=== PATIENT | female | born 1935 | race Caucasian/White ===

== ENCOUNTER → 2017-09-09 | Outpatient (CLI) | payer OTHER, BC ==
[~2017-09-09] MED LIST: ASPI-232 PO; CALC200T PO; CZR50 PO; DSWCR TOP; FLUO0.0543 TOP; MULT1CAP16 PO; SIMV10TA2 PO
--- NOTE | 2017-09-09 10:52 | DIAGNOSTIC IMAGING REPORT ---
ULTRASOUND KIDNEYS AND BLADDER CLINICAL HISTORY: Chronic kidney disease. COMPARISON STUDY: Abdominal radiographs dated 12/28/2010. TECHNIQUE: Real-time, grayscale, and color flow sonography of the kidneys and bladder is performed. Images are reviewed in the transverse and longitudinal planes. FINDINGS: Kidneys: The kidneys demonstrate cortical atrophy and increased echotexture consistent with medical renal disease. There is asymmetric atrophy of the right kidney as compared to the left. The right kidney measures 8.7 x 3.5 x 4.0 cm and the left kidney measures 9.9 x 5.0 x 4.3 cm. There is no hydronephrosis. There is prominence of the left renal collecting system and a small left-sided extrarenal pelvis. No shadowing renal calculi are identified. There is no sonographic evidence of contour deforming renal mass lesion. No perinephric fluid is identified. Bladder: The bladder is normal in appearance. Bilateral ureteral jets were seen. IMPRESSION: 1. There is asymmetric cortical atrophy of the right kidney as compared to the left. Findings suggest medical renal disease. 2. No hydronephrosis is seen. 3. The bladder is normal as visualized. Electronically signed by: Jamie Noel M.D. 09/09/2017 10:51 AM Dictated Date/Time: 09/09/2017 10:49 AM
[2017-09-09 12:11] LABS: HEMATOCRIT 38.6 % (37-47); HEMOGLOBIN 12.6 g/dL (12.0-16.0); MEAN CELL VOLUME 97.7 fL (80-100); MEAN CORPUSCULAR HEMOGLOBIN 31.9 pg (25-34); MEAN CORPUSCULAR HGB CONC 32.6 g/dl (32-36); MEAN PLATELET VOLUME 10.8 fL (7.4-10.4); PLATELET COUNT 202 K/uL (130-400); RED CELL DISTRIBUTION WIDTH CV 12.5 % (11.5-14.5); WHITE BLOOD COUNT 6.21 K/uL (4.8-10.8)
[2017-09-09 12:32] LABS: ALBUMIN 3.8 gm/dl (3.4-5.0); ALT/SGPT 26 U/L (12-78); AST/SGOT 22 U/L (15-37); BLOOD UREA NITROGEN 23 mg/dl (7-18); CALCIUM 9.4 mg/dl (8.5-10.1); CARBON DIOXIDE 28 mmol/L (21-32); CREATININE 0.84 mg/dl (0.60-1.20); GLUCOSE 90 mg/dl (70-99); POTASSIUM 4.5 mmol/L (3.5-5.1); SODIUM 132 mmol/L (136-145)
[2017-09-09 12:35] LABS: ALKALINE PHOSPHATASE 80 U/L (45-117); TOTAL PROTEIN 7.4 gm/dl (6.4-8.2)
== END | disposition home or self-care (01) ==
LOC: C.ULTR 10:18
PROVIDERS: ATTEND Internal Medicine Nephrology
DX: I34.1 Nonrheumatic mitral (valve) prolapse (principal); I36.1 Nonrheumatic tricuspid (valve) insufficiency; N18.3 Chronic kidney disease, stage 3 (moderate); R79.89 Other specified abnormal findings of blood chemistry

== ENCOUNTER 2022-02-02 08:02 | Inpatient (IN) ==
--- NOTE | 2022-02-02 08:13 | Emergency Department Note ---
Impression & Plan Syncope, Acute dehydration ED Provider Note NAME: RENE CROFT AGE: 86 SEX: F : 1935 ARRIVES VIA: Ambulance INFORMANT: Patient, ED PROVIDER(S): Blaze Garcia MD Chief Complaint: Syncope HPI: Patient presents via EMS due to concern for syncope. The patient does live at home alone and states that she was getting ready to have her morning cup of coffee when she found her self on the kitchen floor. Patient denies having any acute pain. The patient states that she does suffer from chronic shortness of breath and is told by clinical research tech that she always has shortness of breath. Patient denies any head neck chest back or abdominal pain. No extremity pain. Patient then got her self up and into bed but called EMS because she "did not feel quite right." Patient recently was diagnosed with a DVT and started on Xarelto within the past week. EMS was concerned about hoarding as there were a lot of belongings everywhere with only pads for the home in between the belongings but no real open spaces. Patient denies any nausea vomiting or abdominal pains. Patient states that she has never had this happen before. She does follow with Dr. Post with cardiology. When asked why she follows with Dr. Bergeron she states "for my heart." Patient does take losartan in the morning as well as Lasix for blood pressure and fluid but is unsure as to whether or not she took them as she states that most of her pills were in the sink when she got up after passing out. ROS: See HPI for pertinent positives and negatives. A total of 10 systems were reviewed and otherwise negative. Past medical history: See below Surgical history: See below Social history: See below Physical Exam: GENERAL: NAD, wearing a mask, non-toxic. EYE EXAM: Normal conjunctiva. PERRL, no anisocoria and EOM's grossly intact w/o pain. Head: Normocephalic atraumatic. NECK: Supple, no nuchal rigidity, no adenopathy, non-tender. No signs of meningismus. FROM of the neck with good chin to chest and neck extension. No stridor. No midline C-spine TTP. LUNGS: Clear to auscultation. Normal chest wall mechanics. HEART: NSR, no MRG. ABDOMEN: Abdomen soft, non-tender, normo-active bowel sounds, no masses, no rebound or guarding. BACK: No CVA TTP. No TTP. SKIN: No rashes and no bruising. UPPER EXTREMITIES: Upper extremities are grossly normal. No TTP or obvious deformity good range of motion. LOWER EXTREMITIES: Grossly normal, no edema. No TTP or obvious deformity. NEURO EXAM: A&O x3, cranial nerves II-XII grossly intact, normal speech, moves all 4 extremities. Differential diagnoses: Vasovagal event, dehydration, infection, hypoglycemia, electrolyte abnormalities, cardiac sources, intracerebral event, pulmonary embolism, seizure, toxicologic, neurologic, as well as other pathologies. Course: Patient was seen and evaluated the bedside. Full history physical exam was performed. EKG interpreted by nd Sinus with first-degree AV block, rate of 88, prolonged ID, normal axis, motion artifact noted. No obvious ST elevations. Imaging Studies: See Below Cardiac monitoring: An order was placed for continuous cardiac monitoring. The monitor shows a rate of 82 with sinus rhythm. MDM: Patient presented due to concern for syncope. The patient does not remember the event. No tongue biting or incontinence. Patient denies any head or neck pain but given that the patient is on Xarelto CT of the head was obtained. Patient did have blood work completed along with an EKG troponin and chest x-ray. Patient white count is normal with a normal H&H and platelet count. INR 1.3. The patient does have an elevated BUN to creatinine ratio with a BUN of 28. Patient mild hypercalcemia 10.2. TSH is normal. Troponin is not elevated. EKG without overt signs of arrhythmia. CT head negative. Given the patient's episode of syncope and age with a known history of mitral valve prolapse do believe the patient would benefit from admission and telemetry. I did speak with the on-call hospitalist Dr. Miguel and the patient was admitted to the [facility] service. Past Med/Surg History Medical History Chronic kidney disease STAGE 3 Glaucoma Hyperlipidemia Hypertension Mitral valve prolapse FOLLOWED BY DR. POST Osteoarthritis Pulmonary HTN Surgical History History of colonoscopy History of left cataract surgery 10/13/18: was given 2mg of IV versed History of thyroidectomy, subtotal GOITER REMOVED ? DETAILS Family History Mother Family history of diabetes mellitus Father Heart disease Sister Pulmonary embolism Social History Smoking Status: Never smoker Second Hand Exposure: No; Hx Alcohol Use: Yes Alcohol type: wine Hx Substance Use: No Preferred Language: Venezuelan Communication Ability: Effective Tightener Required: No Beliefs That Will Affect Care: None Current Living Situation: Alone Other Information That Helps Us Care for You: No Feels Safe at Home: Yes Safety Concerns: Feels Safe At This Time Assistive Devices: Cane and Glasses Allergies Allergies Allergy/AdvReac Type Severity Reaction Status Date / Time latex Allergy Intermediate SWELLING Verified 10/27/18 08:03 blisters reddness lisinopril Allergy Mild Cough Verified 10/27/18 08:03 Home Meds Home Medications Medication Instructions Recorded Confirmed atorvastatin 10 mg tablet 10 mg PO HS 10/01/18 02/02/22 denosumab 60 mg/mL subcutaneous 1 dose subcut UD 10/01/18 02/02/22 syringe (Prolia) furosemide 20 mg tablet 20 mg PO DAILY PRN swelling 10/01/18 02/02/22 losartan 100 mg tablet 50 mg PO BID 10/01/18 02/02/22 multivitamin 1 tab PO DAILY 10/01/18 02/02/22 timolol 0.5 % eye drops 1 drp OPB QAM 10/01/18 02/02/22 aspirin 81 mg tablet 81 mg PO DAILY 02/02/22 02/02/22 rivaroxaban 10 mg tablet 10 mg PO DAILY 02/02/22 02/02/22 Results & Data (ED) Vital Signs Vital Signs - 24 hr 02/02/22 08:07 02/02/22 08:07 02/02/22 08:51 Temperature 36.7 C Temperature Source Oral Pulse Rate 88 88 Pulse Rate from SpO2 Sensor 88 Pulse Rhythm Regular Pulse Strength Normal Respiratory Rate 20 19 Respiratory Effort / Characteristics Non-Labored Respiratory Depth Normal Respiratory Pattern Regular Blood Pressure 145/84 H 120/69 Blood Pressure Mean 104 86 Pulse Oximetry 98 98 96 Oxygen Delivery Method Room Air Room Air Room Air Sepsis Recent Fever Within 48 Hours No Sepsis New/Unexplained Change in Mental Status N/A Sepsis Action Taken by Nursing No Action Required 02/02/22 09:01 02/02/22 09:30 02/02/22 10:00 Temperature Temperature Source Pulse Rate 93 H 81 67 Pulse Rate from SpO2 Sensor 73 68 Pulse Rhythm Pulse Strength Respiratory Rate 23 18 14 Respiratory Effort / Characteristics Respiratory Depth Respiratory Pattern Blood Pressure 116/68 141/68 H 133/62 Blood Pressure Mean 84 92 85 Pulse Oximetry 98 97 99 Oxygen Delivery Method Room Air Room Air Room Air Sepsis Recent Fever Within 48 Hours Sepsis New/Unexplained Change in Mental Status Sepsis Action Taken by Nursing 02/02/22 10:30 Temperature Temperature Source Pulse Rate 67 Pulse Rate from SpO2 Sensor 66 Pulse Rhythm Pulse Strength Respiratory Rate 17 Respiratory Effort / Characteristics Respiratory Depth Respiratory Pattern Blood Pressure 138/66 Blood Pressure Mean 90 Pulse Oximetry 96 Oxygen Delivery Method Room Air Sepsis Recent Fever Within 48 Hours Sepsis New/Unexplained Change in Mental Status Sepsis Action Taken by Usp Medications Current Medication List: was personally reviewed by me Laboratory Data Attestation: I reviewed the patient's lab results. Result diagrams: 02/02/22 08:21 02/02/22 08:21 Lab Results 02/02/22 02/02/22 02/02/22 Range/Units 08:21 08:21 08:21 WBC 6.42 (4.8-10.8) K/ul RBC 4.29 (3.93-5.22) M/uL Hgb 13.5 (12.0-16.0) g/dl Hct 42.2 (34.1-44.9) % MCV 98.4 (80.0-100.0) fL MCH 31.5 (25.0-34.0) pg MCHC 32.0 (32.0-36.0) g/dL RDW Std Deviation 46.2 (36.4-46.3) fL RDW Coeff of Justyn 12.8 (11.5-14.5) % Plt Count 215 (130-400) K/uL MPV 9.5 (9.4-12.3) fL Immature Gran % (Auto) 0.8 % Neut % (Auto) 66.2 % Lymph % (Auto) 18.4 % [place]cho % (Auto) 9.8 % Eos % (Auto) 4.2 % Baso % (Auto) 0.6 % Neut # (Auto) 4.25 (1.4-6.5) K/uL Lymph # (Auto) 1.18 L (1.2-3.4) K/uL [place]cho # (Auto) 0.63 (0.24-0.82) K/uL Eos # (Auto) 0.27 (0-0.50) K/uL Baso # (Auto) 0.04 (0-0.2) K/uL Immature Gran # (Auto) 0.05 H (0.00-0.02) K/uL PT 13.6 H (9.0-12.0) Seconds INR 1.3 H (0.9-1.1) APTT 30.2 (21.0-31.0) Seconds PTT Ratio 1.1 Sodium 139 (136-145) mmol/L Potassium 4.2 (3.5-5.1) mmol/L Chloride 105 (98-107) mmol/L Carbon Dioxide 26 (21-32) mmol/L Anion Gap 8 (3-11) BUN 28 H (6-23) mg/dl Creatinine 0.91 (0.6-1.2) mg/dl Est Cr Clr Drug Dosing 34.4 ml/min Est GFR ( Amer) 65.7 ml/min Est GFR (Non-Af Amer) 56.7 ml/min BUN/Creatinine Ratio 30.8 H (10-20) Glucose 116 H (70-99(Fasting)) mg/dl Calcium 10.2 H (8.5-10.1) mg/dl Magnesium 1.8 (1.7-2.4) mg/dl Total Bilirubin 0.8 (0.2-1.0) mg/dl AST 23 (13-39) U/L ALT 22 (7-52) U/L Alkaline Phosphatase 72 (34-104) U/L Troponin I High Sens 10.3 (0-14) pg/ml Total Protein 7.1 (6.0-8.3) gm/dl Albumin 4.1 (3.4-5.0) gm/dl Globulin 3.0 (2.5-4.0) gm/dl Albumin/Globulin Ratio 1.4 (0.9-2) TSH (0.300-4.500) uIu/ml SARS-CoV-2, RNA, NAAT (NEGATIVE) 02/02/22 02/02/22 Range/Units 08:21 08:51 WBC (4.8-10.8) K/ul RBC (3.93-5.22) M/uL Hgb (12.0-16.0) g/dl Hct (34.1-44.9) % MCV (80.0-100.0) fL MCH (25.0-34.0) pg MCHC (32.0-36.0) g/dL RDW Std Deviation (36.4-46.3) fL RDW Coeff of Justyn (11.5-14.5) % Plt Count (130-400) K/uL MPV (9.4-12.3) fL Immature Gran % (Auto) % Neut % (Auto) % Lymph % (Auto) % [place] % (Auto) % Eos % (Auto) % Baso % (Auto) % Neut # (Auto) (1.4-6.5) K/uL Lymph # (Auto) (1.2-3.4) K/uL [place]cho # (Auto) (0.24-0.82) K/uL Eos # (Auto) (0-0.50) K/uL Baso # (Auto) (0-0.2) K/uL Immature Gran # (Auto) (0.00-0.02) K/uL PT (9.0-12.0) Seconds INR (0.9-1.1) APTT (21.0-31.0) Seconds PTT Ratio Sodium (136-145) mmol/L Potassium (3.5-5.1) mmol/L Chloride (98-107) mmol/L Carbon Dioxide (21-32) mmol/L Anion Gap (3-11) BUN (6-23) mg/dl Creatinine (0.6-1.2) mg/dl Est Cr Clr Drug Dosing ml/min Est GFR ( Amer) ml/min Est GFR (Non-Af Amer) ml/min BUN/Creatinine Ratio (10-20) Glucose (70-99(Fasting)) mg/dl Calcium (8.5-10.1) mg/dl Magnesium (1.7-2.4) mg/dl Total Bilirubin (0.2-1.0) mg/dl AST (13-39) U/L ALT (7-52) U/L Alkaline Phosphatase (34-104) U/L Troponin I High Sens (0-14) pg/ml Total Protein (6.0-8.3) gm/dl Albumin (3.4-5.0) gm/dl Globulin (2.5-4.0) gm/dl Albumin/Globulin Ratio (0.9-2) TSH 1.866 (0.300-4.500) uIu/ml SARS-CoV-2, RNA, NAAT NEGATIVE (NEGATIVE) Administered Medications Sodium Chloride (Nss 1000ml) 1,000 mls @ 125 mls/hr IV .Q8H LEAH Stop: 02/02/22 20:52 Last Admin: 02/02/22 13:52 Dose: 125 mls/hr Documented By: CC Rivaroxaban (Rivaroxaban 10 Mg Tablet) 10 mg PO DAILY LEAH Stop: 03/04/22 12:52 Last Admin: 02/02/22 13:51 Dose: 10 mg Documented By: CC Timolol Maleate (Timolol Maleate 0.5% Op Soln 5 Ml Btl) 1 drops OP QAM LEAH Stop: 03/04/22 13:59 Last Admin: 02/02/22 13:52 Dose: 1 drops Documented By: CC Discontinued Medications Sodium Chloride (Nss) 500 mls @ 999 mls/hr IV .Q31M LEAH Stop: 02/02/22 09:00 Last Infusion: 02/02/22 09:57 Dose: 0 mls/hr Documented By: Admin: 02/02/22 08:55 Dose: 999 mls/hr Documented By: IN Imaging Data Radiologist's Impression: Head CT 02/02/22 08:22 CT SCAN OF THE BRAIN WITHOUT IV CONTRAST CLINICAL HISTORY: Syncope. COMPARISON STUDY: No priors. TECHNIQUE: Unenhanced axial CT scan of the brain is performed from the vertex to the skull base. A dose lowering technique was utilized adhering to the principles of ALARA. CT DOSE: 537.48 mGy.cm FINDINGS: Brain parenchyma: There is age-related involutional change noting advanced confluent subcortical and periventricular microangiopathic disease. There is no hemorrhage, mass effect, or evidence of acute territorial ischemia by CT criteria. Latif-white matter differentiation is preserved. No extra-axial fluid collection is seen. Ventricles, sulci, cisterns: Prominent secondary to involutional change. Intracranial vasculature: There is atherosclerotic calcification of the cavernous carotid and vertebral arteries. Calvarium: The skeletal structures are osteopenic. No depressed calvarial fracture is identified. Sinuses and mastoids: The visualized paranasal sinuses are clear. There is thickening and sclerosis of the wall of the left maxillary antrum. The mastoid air cells are well pneumatized. Orbits: The bony orbits are grossly intact. There are bilateral ocular lens implants. IMPRESSION: There is no hemorrhage, mass effect, or evidence of acute territorial ischemia by CT criteria. ACT 112: Negative or not required by law. Electronically signed by: Jamie Noel M.D. 02/02/2022 9:15 AM Chest X-Ray 02/02/22 10:24 SINGLE VIEW CHEST CLINICAL HISTORY: Syncope. FINDINGS: An AP, portable, upright chest radiograph is compared to study dated 12/28/2010. The examination is degraded by portable technique and apical lordotic positioning. The heart is mildly enlarged noting atherosclerotic calcification of the thoracic aorta. The pulmonary vasculature is noncongested. Chronic interstitial thickening is similar to previous. There is bibasilar scarring/atelectasis. The lungs and pleural spaces are otherwise clear. No pneumothorax is seen. The skeletal structures are osteopenic. The bony thorax is grossly intact. IMPRESSION: Mild cardiomegaly with no acute cardiopulmonary abnormality identified. ACT 112: Negative or not required by law. Electronically signed by: Jamie Noel M.D. 02/02/2022 10:56 AM Discharge Plan Visit Data Chief Complaint: Syncope Stated Complaint: syncope ED Provider: Blaze Garcia Discharge Problem: Syncope, Acute dehydration Patient Disposition: Admitted As Inpatient Discharge Instructions Interventions: ED Discharge Assessment Last Done: 02/02/22 12:22
[2022-02-02] MEDS ORDERED: SODIUM CHLORIDE 0.9% 500 ML IV SCH (08:30)
[2022-02-02 08:32] LABS: Basophils # (auto) 0.04 K/uL (0-0.2); Basophils % (auto) 0.6 %; Eosinophils # (auto) 0.27 K/uL (0-0.50); Eosinophils % (auto) 4.2 %; Hematocrit (blood only) 42.2 % (34.1-44.9); Hemoglobin 13.5 g/dl (12.0-16.0); Immature Granulocytes # (auto) 0.05 K/uL (0.00-0.02); Immature Granulocytes % (auto) 0.8 %; Lymphocytes # (auto) 1.18 K/uL (1.2-3.4); Lymphocytes % (auto) 18.4 %; Mean Corpuscular Hemoglobin 31.5 pg (25.0-34.0); Mean Corpuscular Volume 98.4 fL (80.0-100.0); Mean Platelet Volume 9.5 fL (9.4-12.3); Monocytes # (auto) 0.63 K/uL (0.24-0.82); Monocytes % (auto) 9.8 %; Neutrophils # (auto) 4.25 K/uL (1.4-6.5); Neutrophils % (auto) 66.2 %; Platelet Count 215 K/uL (130-400); RDW Coefficient of Variation 12.8 % (11.5-14.5); RDW Standard Deviation 46.2 fL (36.4-46.3); Red Blood Count 4.29 M/uL (3.93-5.22); White Blood Count 6.42 K/ul (4.8-10.8)
[2022-02-02 08:48] LABS: INR 1.3 (0.9-1.1); Partial Thromboplastin Ratio 1.1; Partial Thromboplastin Time 30.2 Seconds (21.0-31.0); Prothrombin Time 13.6 Seconds (9.0-12.0)
[2022-02-02 09:01] LABS: Troponin I High Sensitivity 10.3 pg/ml (0-14)
--- NOTE | 2022-02-02 09:17 | CT Scan Report ---
CT SCAN OF THE BRAIN WITHOUT IV CONTRAST CLINICAL HISTORY: Syncope. COMPARISON STUDY: No priors. TECHNIQUE: Unenhanced axial CT scan of the brain is performed from the vertex to the skull base. A do se lowering technique was utilized adhering to the principles of ALARA. CT DOSE: 537.48 mGy.cm FINDINGS: Brain parenchyma: There is age-related involutional change noting advanced confluent subcortical and periventricular microangiopathic disease. There is no hemorrhage, mass effect, or evidence of acute t erritorial ischemia by CT criteria. Latif-white matter differentiation is preserved. No extra-axial fl uid collection is seen. Ventricles, sulci, cisterns: Prominent secondary to involutional change. Intracranial vasculature: There is atherosclerotic calcification of the cavernous carotid and vertebr al arteries. Calvarium: The skeletal structures are osteopenic. No depressed calvarial fracture is identified. Sinuses and mastoids: The visualized paranasal sinuses are clear. There is thickening and sclerosis o f the wall of the left maxillary antrum. The mastoid air cells are well pneumatized. Orbits: The bony orbits are grossly intact. There are bilateral ocular lens implants. IMPRESSION: There is no hemorrhage, mass effect, or evidence of acute territorial ischemia by CT romi dunbar. ACT 112: Negative or not required by law. Electronically signed by: Jamie Noel M.D. 02/02/2022 9:15 AM
[2022-02-02 09:24] LABS: Albumin Globulin Ratio 1.4 (0.9-2); Albumin Level 4.1 gm/dl (3.4-5.0); BUN Creatinine Ratio 30.8 (10-20); Bilirubin,Total 0.8 mg/dl (0.2-1.0); Calcium 10.2 mg/dl (8.5-10.1); Creatinine Clr Calc Pharmacy 34.4 ml/min; Est GFR (African American) 65.7 ml/min; Est GFR (Non-African American) 56.7 ml/min; Magnesium 1.8 mg/dl (1.7-2.4); Potassium 4.2 mmol/L (3.5-5.1); Total Protein 7.1 gm/dl (6.0-8.3)
--- NOTE | 2022-02-02 10:46 | History & Physical Report ---
Date of Service February 02, 2022 Assessment & Plan (1) Syncope and collapse: Plan: Multiple possible causes including but not limited to dehydration (elevated BUN/cr ratio), orthostatic hypotension (orthostatics pending, pt also wearing new compression stockings this week that are not fitted to her), medication side effect, stroke (less likely with normal CT and no focal deficits on exam), ACS (less likely given no chest pain, nonischemic and normal HS trop), cardiac conduction abnormality, worsening valvulopathy, infection (less likely without known symptoms but UA still pending, CXR clear), seizure (no loss bladder control or evidence of tongue biting). Workup so far is negative. She did receive a small bolus of NSS. Will cont to monitor on telemetry to ensure no conduction abnormality present and consult cardiology. Will obtain updated echo and EEG. Repeat EKG in am. Orthostatics qshift and PT/OT evaluation ordered. (2) Acute superficial venous thrombosis of right lower extremity: Plan: Found this week as outpatient. Cont Xarelto 10mg daily for 45 days. Although PE considered, pt has a very low risk including no tachycardia, chest pain, pleurisy, or shortness of breath. Also her clot is superficial making it low risk for causing PE. Cont current treatment and consider CTA chest only if she develops symptoms. (3) Pulmonary HTN: Plan: Chronic dyspnea, normal spirometry in 2019. CXR clear. No changes in symptoms. Cont outpatient monitoring. (4) Glaucoma: Plan: chronic, stable. Cont eye drops per home regimen. (5) Chronic kidney disease: Plan: Chronic, stable. Cont to monitor. Avoid nephrotoxic substances. Renally dose medications as needed. (6) Hyperlipidemia: Plan: chronic, stable. Cont Atorvastatin per outpatient regimen. (7) Hypertension: Plan: chronic, stable and at goal. Cont Losartan per home reigmen. (8) DVT prophylaxis: Plan: Xarelto Full code as confirmed with the patient on admission. Her brother is medical POA if needed. Dispo- med tele and home in am pending recommendations and workup overnight. [facility] History of Present Illness Chief Complaint: syncope Primary Care Provider: RENZO PCP 86 yo F presented via EMS after syncopal event in her kitchen this morning. She awoke and walked to the kitchen to get her morning coffee. She said she couldn't remember if she poured it or not but the next thing she remembered was finding herself on her kitchen floor. There were no prodromal symptoms. She felt somewhat lightheaded but was clear. She reported going to her bed and lying down and ultimately calling EMS out of concern that something bad happened. She doesn't report pain anywhere, denies pain in her chest and no shortness of breath. Denies any recent respiratory symptoms. Reports feeling fine, in fact, yesterday was out in her garden most of the day. Denies dysuria, urinary urgency, abdominal pain. Denies headache. Recent medication changes include low dose Xarelto for treatment of a superficial blood clot in her right leg after she reported some swelling. Uses LAsix as needed for swelling, which is typically daily, but didn't take them today. She has no stroke symptoms today. No known heart or lung disease (normal spirometry in November 2018). She has MVP and is seen at [facility] for this, last echo was in 2019. She has bilateral carotid disease that is known and asymptomatic. She has a h/o reported pulmonary hypertension. She is not on oxygen but is chronically short of breath. No changes in this recently. EKG reveals no evidence of ischemia and highly sensitive troponin is negative, CXR is clear, urinalysis is pending, CBC and BMP are unremarkable aside for an elevated BUN:creat ratio and CKD Stage III which is chronic. ROS reveals that she has been eating and drinking well and denies any bleeding or bruising. Allergies Allergy/AdvReac Type Severity Reaction Status Date / Time latex Allergy Intermediate SWELLING Verified 10/27/18 08:03 blisters reddness lisinopril Allergy Mild Cough Verified 10/27/18 08:03 Home Medications Medication Instructions Recorded Confirmed Type atorvastatin 10 mg tablet 10 mg PO HS 10/01/18 02/02/22 History denosumab 60 mg/mL subcutaneous 1 dose subcut UD 10/01/18 02/02/22 History syringe (Prolia) furosemide 20 mg tablet 20 mg PO DAILY PRN swelling 10/01/18 02/02/22 History losartan 100 mg tablet 50 mg PO BID 10/01/18 02/02/22 History multivitamin 1 tab PO DAILY 10/01/18 02/02/22 History timolol 0.5 % eye drops 1 drp OPB QAM 10/01/18 02/02/22 History aspirin 81 mg tablet 81 mg PO DAILY 02/02/22 02/02/22 History rivaroxaban 10 mg tablet 10 mg PO DAILY 02/02/22 02/02/22 History Past Med/Surg History Medical History Chronic kidney disease STAGE 3 Glaucoma Hyperlipidemia Hypertension Mitral valve prolapse FOLLOWED BY DR. POST Osteoarthritis Pulmonary HTN Surgical History History of colonoscopy History of left cataract surgery 10/13/18: was given 2mg of IV versed History of thyroidectomy, subtotal GOITER REMOVED ? DETAILS Family History Mother Family history of diabetes mellitus Father Heart disease Sister Pulmonary embolism Social History Smoking Status: Never smoker Second Hand Exposure: No; Hx Alcohol Use: Yes Alcohol type: wine Hx Substance Use: No Preferred Language: Citizen Of [place] Communication Ability: Effective Tool Design Engineer Required: No Beliefs That Will Affect Care: None Current Living Situation: Alone Feels Safe at Home: Yes Assistive Devices: Glasses Review of Systems Review of Systems: All systems were reviewed and negative except as indicated above. Physical Exam Physical Exam: CONSTITUTIONAL: WNWD, vitals as above, generally well- appearing, NAD EYES: EOMI bilaterally, PERRL, normal conjunctivae, no scleral icterus ENT: external ear and nose normal, oropharynx clear, MMM NECK: trachea midline RESPIRATORY: clear to auscultation bilaterally, no crackles, rales or wheezes, normal respiratory effort CARDIOVASCULAR: regular rate and rhythm, S1 and 2 heard without murmurs, ga llops or rubs, no JVD, no peripheral edema, no carotid bruits CHEST: inspection of chest was normal GASTROINTESTINAL: soft, nontender, ND, no guarding MUSCULOSKELETAL: strength 5/5 throughout, head is normocephalic and atraumatic, she is wearing OTC bilateral foot/ankle compression stockings which are cutting off circulation to her toes which are white. These were removed. Feet are cool to touch and sensation intact. SKIN: warm and dry NEUROLOGIC: No facial palsy, no dysarthria. CN 2-12 grossly intact, no sensory deficit, normal cognition, normal speech, no tremor PSYCHIATRIC: alert cooperative and oriented to person, place and time. Results & Data Results & Data ([facility]) Vital Signs (Past 12 Hours) Vital Signs Temp Pulse Resp BP Pulse Ox O2 Del Method 02/02/22 09:30 81 18 141/68 H 97 Room Air 02/02/22 09:01 93 H 23 116/68 98 Room Air 02/02/22 08:51 88 19 120/69 96 Room Air 02/02/22 08:07 98 Room Air 02/02/22 08:07 36.7 C 88 20 145/84 H 98 Room Air Laboratory Results Short CBC 02/02/22 Range/Units 08:21 WBC 6.42 (4.8-10.8) K/ul Hgb 13.5 (12.0-16.0) g/dl Hct 42.2 (34.1-44.9) % Plt Count 215 (130-400) K/uL BMP 02/02/22 08:21 Sodium 139 Potassium 4.2 Chloride 105 Carbon Dioxide 26 BUN 28 H Creatinine 0.91 Glucose 116 H Calcium 10.2 H Liver Function 02/02/22 Range/Units 08:21 Total Bilirubin 0.8 (0.2-1.0) mg/dl AST 23 (13-39) U/L ALT 22 (7-52) U/L Alkaline Phosphatase 72 (34-104) U/L Albumin 4.1 (3.4-5.0) gm/dl Diagnostic Findings Head CT 02/02/22 08:22 CT SCAN OF THE BRAIN WITHOUT IV CONTRAST CLINICAL HISTORY: Syncope. COMPARISON STUDY: No priors. TECHNIQUE: Unenhanced axial CT scan of the brain is performed from the vertex to the skull base. A dose lowering technique was utilized adhering to the principles of ALARA. CT DOSE: 537.48 mGy.cm FINDINGS: Brain parenchyma: There is age-related involutional change noting advanced confluent subcortical and periventricular microangiopathic disease. There is no hemorrhage, mass effect, or evidence of acute territorial ischemia by CT criteria. Latif-white matter differentiation is preserved. No extra-axial fluid collection is seen. Ventricles, sulci, cisterns: Prominent secondary to involutional change. Intracranial vasculature: There is atherosclerotic calcification of the cavernous carotid and vertebral arteries. Calvarium: The skeletal structures are osteopenic. No depressed calvarial fracture is identified. Sinuses and mastoids: The visualized paranasal sinuses are clear. There is thickening and sclerosis of the wall of the left maxillary antrum. The mastoid air cells are well pneumatized. Orbits: The bony orbits are grossly intact. There are bilateral ocular lens implants. IMPRESSION: There is no hemorrhage, mass effect, or evidence of acute territorial ischemia by CT criteria. ACT 112: Negative or not required by law. Electronically signed by: Jamie Noel M.D. 02/02/2022 9:15 AM Code Status & VTE Plan VTE Prophylaxis Plan VTE Prophylaxis will be ordered: Yes (1) Chronic kidney disease Chronic kidney disease stage: stage 3 (moderate)
--- NOTE | 2022-02-02 10:57 | XRay Report ---
SINGLE VIEW CHEST CLINICAL HISTORY: Syncope. FINDINGS: An AP, portable, upright chest radiograph is compared to study dated 12/28/2010. The examina tion is degraded by portable technique and apical lordotic positioning. The heart is mildly enlarged noting atherosclerotic calcification of the thoracic aorta. The pulmonary vasculature is noncongested . Chronic interstitial thickening is similar to previous. There is bibasilar scarring/atelectasis. Th e lungs and pleural spaces are otherwise clear. No pneumothorax is seen. The skeletal structures are osteopenic. The bony thorax is grossly intact. IMPRESSION: Mild cardiomegaly with no acute cardiopulmonary abnormality identified. ACT 112: Negative or not required by law. Electronically signed by: Jamie Noel M.D. 02/02/2022 10:56 AM
[2022-02-02 12:00] LABS: Appearance Urine Clear (Clear); Bilirubin Urine Negative (Negative); Blood Urine Negative (Negative); Color Urine Yellow; Glucose Urine UA Negative (Negative); Ketones Urine Negative (Negative); Leukocyte Esterase Urine Negative (Negative); Nitrite Urine Negative (Negative); Protein Urine Negative (Negative); Specific Gravity Urine 1.008 (1.000-1.030); Urobilinogen Urine Negative (Negative)
[2022-02-02] MEDS ORDERED: ACETAMINOPHEN 325 MG TAB PO PRN (12:53)
[2022-02-02] MEDS ORDERED: SODIUM CHLORIDE 0.9% 1000ML 1,000 ML IV SCH (12:53)
[2022-02-02] MEDS: RIVAROXABAN 10 MG TABLET PO SCH (13:51)
[2022-02-02] MEDS: TIMOLOL MALEATE 0.5% OP SOLN 5 ML BTL OP SCH (13:52)
--- NOTE | 2022-02-02 16:03 | Electrocardiogram Report ---
Test Reason : Blood Pressure : / mmHG Vent. Rate : 088 BPM Atrial Rate : 088 BPM P-R Int : 210 ms QRS Dur : 080 ms QT Int : 334 ms P-R-T Axes : 062 016 207 degrees QTc Int : 404 ms Poor data quality, interpretation may be adversely affected Sinus rhythm with 1st degree A-V block Septal infarct , age undetermined Abnormal ECG When compared with ECG of 28-DEC-2010 10:55, 1st degree AV block is now present Septal infarct is now Present Confirmed by Theodore Coelho ([id number]) on 02/02/2022 4:03:21 PM Referred By: REFERRED SELF Confirmed By:Theodore Coelho
[2022-02-02] MEDS: LOSARTAN POTASSIUM 50 MG TAB PO SCH (21:42)
[2022-02-02] MEDS: ATORVASTATIN 10 MG TAB PO SCH (21:42)
[2022-02-03 07:09] LABS: Hemoglobin 11.6 g/dl (12.0-16.0); Mean Corpuscular Hemoglobin 31.6 pg (25.0-34.0); Mean Corpuscular Hgb Conc 32.2 g/dL (32.0-36.0); Mean Corpuscular Volume 98.1 fL (80.0-100.0); Mean Platelet Volume 9.7 fL (9.4-12.3); Platelet Count 198 K/uL (130-400); RDW Coefficient of Variation 12.8 % (11.5-14.5); RDW Standard Deviation 46.5 fL (36.4-46.3); Red Blood Count 3.67 M/uL (3.93-5.22); White Blood Count 5.29 K/ul (4.8-10.8)
[2022-02-03 07:34] LABS: BUN Creatinine Ratio 23.5 (10-20); Calcium 8.9 mg/dl (8.5-10.1); Creatinine Clr Calc Pharmacy 36.9 ml/min; Est GFR (African American) 71.4 ml/min; Est GFR (Non-African American) 61.6 ml/min; Potassium 4.3 mmol/L (3.5-5.1)
[2022-02-03] MEDS: LOSARTAN POTASSIUM 50 MG TAB PO SCH (08:37)
[2022-02-03] MEDS: RIVAROXABAN 10 MG TABLET PO SCH (08:38)
[2022-02-03] MEDS: MULTIVITAMIN TAB PO SCH (08:38)
[2022-02-03] MEDS: TIMOLOL MALEATE 0.5% OP SOLN 5 ML BTL OP SCH (08:41)
--- NOTE | 2022-02-03 11:37 | Cardiology Consultation ---
Date of Consultation February 03, 2022 Assessment & Plan (1) Syncope: (2) Acute dehydration: (3) Pulmonary HTN: (4) Chronic kidney disease: (5) Hyperlipidemia: (6) Mitral valve prolapse: (7) Mitral regurgitation: (8) Carotid stenosis, bilateral: Plan Ischemic work-up is unremarkable. 2D echocardiogram shows normal LV wall motion without wall motion abnormalities. I do believe the cause of her symptoms were anxiety for which she has had similar previous episodes in the past. No further cardiac testing or intervention necessary at this time. Okay to discharge to home from a cardiac standpoint and follow-up with cardiology in the next 1 to 2 months. No medication changes will be made at this time. History of Present Illness Reason for Consultation: Chest pain Requesting Physician: [facility] Attending Physician: Lenard Carreno MD History of Present Illness Mrs. Victor is a very pleasant yet anxious 86-year-old woman who presented [facility] with complaints of chest discomfort. Her daughter is at the bedside during the examination and supplements her history. The patient notes that she has been very anxious lately with the anniversary of her 's . On the day of presentation she was sitting down eating when she suddenly developed abdominal discomfort which seem to radiate up through her chest shoulders and arms. She checked her blood pressure is 130 systolic. She then became worried that she was suffering aortic dissection which was the cause of her 's and her symptoms worsened. She did not take her as needed antianxiety medication which her daughter states believes would have helped with her symptoms. Upon arrival she was anxious and hypertensive. Since admission she states that she has been feeling much better. She is very active at baseline and goes polka dancing on a regular basis and exercises on a regular basis as well. PMHX: 1. 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 Non-rheumatic tricuspid valve insufficiency 3. Pulmonary hypertension (HCC) 4. HTN, goal below 140/90 5. Asymptomatic bilateral carotid artery stenosis 6. Dyslipidemia, goal LDL below 70 Allergies Allergy/AdvReac Type Severity Reaction Status Date / Time latex Allergy Intermediate SWELLING Verified 10/27/18 08:03 blisters reddness lisinopril Allergy Mild Cough Verified 10/27/18 08:03 Home Medications Medication Instructions Recorded Confirmed Type atorvastatin 10 mg tablet 10 mg PO HS 10/01/18 02/02/22 History denosumab 60 mg/mL subcutaneous 1 dose subcut UD 10/01/18 02/02/22 History syringe (Prolia) furosemide 20 mg tablet 20 mg PO DAILY PRN swelling 10/01/18 02/02/22 History losartan 100 mg tablet 50 mg PO BID 10/01/18 02/02/22 History multivitamin 1 tab PO DAILY 10/01/18 02/02/22 History timolol 0.5 % eye drops 1 drp OPB QAM 10/01/18 02/02/22 History aspirin 81 mg tablet 81 mg PO DAILY 02/02/22 02/02/22 History rivaroxaban 10 mg tablet 10 mg PO DAILY 02/02/22 02/02/22 History Patient History Medical History (Updated 02/03/22 @ 11:37 by Micheal Larios DO) Chronic kidney disease STAGE 3 Glaucoma Hyperlipidemia Hypertension Mitral valve prolapse FOLLOWED BY DR. POST Osteoarthritis Pulmonary HTN Surgical History History of colonoscopy History of left cataract surgery 10/13/18: was given 2mg of IV versed History of thyroidectomy, subtotal GOITER REMOVED ? DETAILS Family History Mother Family history of diabetes mellitus Father Heart disease Sister Pulmonary embolism Social History Smoking Status: Never smoker Second Hand Exposure: No; Hx Alcohol Use: Yes Alcohol type: wine Hx Substance Use: No Preferred Language: Colombian Communication Ability: Effective Consumer Affairs Director Required: No Beliefs That Will Affect Care: None Current Living Situation: Alone Other Information That Helps Us Care for You: No Feels Safe at Home: Yes Safety Concerns: Feels Safe At This Time Assistive Devices: Cane and Glasses Review of Systems Review of Systems: All systems reviewed & are unremarkable except as noted in HPI & below Physical Exam Physical Exam: General: Awake, alert and oriented x 3. No acute distress. HEENT: Normocephalic, atraumatic. Pupils equal, round and reactive to light and accommodation. Extraocular muscles are intact. Anicteric sclera. Moist mucous membranes. Neck: No JVD. No bruit. Cardiovascular: Regular. Positive S-4. Normal S-1 and S-2. No S-3. 3/6 holosystolic ejection murmur, left sternal border, mid-clavicular line with radiation to the axilla. No rubs. Pulmonary: Clear to auscultation bilaterally. No rales, rhonchi, or wheezing. Abdomen: Bowel sounds x 4, soft. No rebound, guarding or tenderness. No organomegaly. Extremities: No clubbing, cyanosis or edema. +2 pedal pulses bilaterally. Skin: Warm and dry. Results & Data ([facility]) Vital Signs (Past 12 Hours) Vital Signs Temp Pulse Resp BP Pulse Ox O2 Del Method 02/03/22 11:25 36.6 C 18 94 Room Air 02/03/22 08:05 36.5 C 64 18 105/63 96 Room Air Diagnostic Findings Summary of transthoracic echocardiogram performed 04/04/2020: There was normal sinus rhythm during the examination. The left ventricular wall motion is normal. The qualitative LV ejection fraction is 60-64% (normal). The left atrium is moderately enlarged. The right atrium is moderately enlarged. The mitral valve leaflets are thickened and redundant consistent with degenerative (myxomatous) mitral valve disease. Moderate bileaflet mitral valve prolapse is present. Mitral stenosis is absent. Moderate to severe mid to late systolic mitral regurgitation is present. The mitral regurgitation jet is eccentric and posteriorly directed hugging the posterior left atrial wall. Moderate to severe tricuspid regurgitation is present. There is no evidence of pulmonary hypertension. The estimated pulmonary artery systolic pressure is 33 mm Hg. Compared to the prior study dated 03/17/19, there has been no significant change. Summary of carotid duplex performed 12/27/20: Right carotid artery duplex examination indicates evidence of 50-69% stenosisof the internal carotid artery. Left carotid artery duplex examination indicates evidence of 50-69% stenosisof the internal carotid artery. (1) Chronic kidney disease Chronic kidney disease stage: stage 3 (moderate)
--- NOTE | 2022-02-03 15:13 | Hospitalist Progress Note ---
Date of Service February 03, 2022 Assessment & Plan (1) Syncope and collapse: Plan: Syncope Likely due to Orthostatic Hypotension Was recently started on Lasix as needed for ankle edema --CT Head:There is no hemorrhage, mass effect, or evidence of acute territorial ischemia by CT criteria. --ECHO: No change when compared to prior study. EF 60 to 65%. Grade 1 diastolic dysfunction. No segmental left ventricular wall motion abnormality. Mitral leaflets appear thickened, moderate and overall redundant consistent with myxomatous degeneration. Moderate mitral valve prolapse, moderate mitral regurgitation and moderate tricuspid regurgitation, moderate biatrial enlargement. --Troponin not elevated --EEG:pending --Positive Orthostatics --Hold Losartan today. Consider decreasing dose upon discharge --Compression stocking --Monitor for arrhythmias Appreciate cardiology input Fall precautions (2) Acute superficial venous thrombosis of right lower extremity: Plan: Continue Xarelto (3) Pulmonary HTN: Plan: Chronic dyspnea, normal spirometry in 2019. (4) Glaucoma: Plan: chronic, stable. Continue eye drops (5) Chronic kidney disease: Plan: CKD III Avoid nephrotoxic agents as able (6) Hyperlipidemia: Plan: Continue Atorvastatin (7) Hypertension: Plan: Monitor BP off Losartan (8) DVT prophylaxis: Plan: Xarelto Code Status Full code Disposition PT/OT prior to discharge Admission and Anticipated Discharge Date Admission Date: February 02, 2022 Subjective Patient is seen and examined at bedside Offers no complaints this morning Denies any chest pain, shortness of breath, dizziness, nausea, abdominal pain Review of Systems Review of Systems: All systems reviewed & are unremarkable except as noted in Subjective Physical Exam Physical Exam: Physical Exam: Vitals signs as noted above General Appearance:Thin, frail, elderly, no apparent distress Head: normocephalic, Atraumatic Eyes: normal inspection, EOMI Neck: supple, Trachea midline Respiratory/Chest: Normal breath sounds, CTA, No accessory muscle use Cardiovascular: S1, S2, +murmur Abdomen/GI:Soft, Non tender, Bowel sounds present Extremities/Musculoskeletal:normal inspection, 1+ B/L edema Neurologic/Psych:AAOX3, grossly no focal neurological deficits Skin: normal color, warm Results & Data Results & Data ([facility]) Vital Signs (Past 12 Hours) Vital Signs Temp Pulse Resp BP BP Pulse Ox O2 Del Method 02/03/22 14:27 36.4 C L 68 20 122/78 97 Room Air 02/03/22 11:25 36.6 C 18 94 Room Air 02/03/22 08:05 36.5 C 64 18 105/63 96 Room Air Laboratory Results Short CBC 02/03/22 Range/Units 06:40 WBC 5.29 (4.8-10.8) K/ul Hgb 11.6 L (12.0-16.0) g/dl Hct 36.0 (34.1-44.9) % Plt Count 198 (130-400) K/uL BMP 02/03/22 06:40 Sodium 139 Potassium 4.3 Chloride 109 H Carbon Dioxide 28 BUN 20 Creatinine 0.85 Glucose 95 Calcium 8.9 (1) Chronic kidney disease Chronic kidney disease stage: stage 3 (moderate)
[2022-02-03] MEDS: ATORVASTATIN 10 MG TAB PO SCH (20:00)
--- NOTE | 2022-02-03 20:46 | Electrocardiogram Report ---
Test Reason : Blood Pressure : / mmHG Vent. Rate : 066 BPM Atrial Rate : 066 BPM P-R Int : 204 ms QRS Dur : 098 ms QT Int : 394 ms P-R-T Axes : 072 045 064 degrees QTc Int : 413 ms Normal sinus rhythm Normal ECG When compared with ECG of 02-FEB-2022 08:09, Criteria for Septal infarct are no longer Present ST no longer depressed in Inferior leads Non-specific change in ST segment in Lateral leads Nonspecific T wave abnormality no longer evident in Inferior leads Nonspecific T wave abnormality no longer evident in Lateral leads Confirmed by Theodore Coelho ([id number]) on 02/03/2022 8:45:56 PM Referred By: REFERRED SELF Confirmed By:Theodore Coelho
[2022-02-04 07:00] LABS: BUN Creatinine Ratio 27.5 (10-20); Calcium 8.9 mg/dl (8.5-10.1); Creatinine Clr Calc Pharmacy 39.2 ml/min; Est GFR (African American) 76.8 ml/min; Est GFR (Non-African American) 66.3 ml/min; Magnesium 1.9 mg/dl (1.7-2.4); Potassium 3.9 mmol/L (3.5-5.1)
[2022-02-04] MEDS: MULTIVITAMIN TAB PO SCH (07:40)
[2022-02-04] MEDS: RIVAROXABAN 10 MG TABLET PO SCH (07:40)
[2022-02-04] MEDS: TIMOLOL MALEATE 0.5% OP SOLN 5 ML BTL OP SCH (07:41)
--- NOTE | 2022-02-04 11:12 | Electroencephalogram ---
EEG Procedure Note Date of Service February 04, 2022 Start / End Times Start Time: 6:41 End Time: 7:01 Referring Physician Juliette Miguel History Near syncope. Home Medication List Medication Instructions Recorded Confirmed Type atorvastatin 10 mg tablet 10 mg PO HS 10/01/18 02/02/22 History denosumab 60 mg/mL subcutaneous 1 dose subcut UD 10/01/18 02/02/22 History syringe (Prolia) furosemide 20 mg tablet 20 mg PO DAILY PRN swelling 10/01/18 02/02/22 History losartan 100 mg tablet 50 mg PO BID 10/01/18 02/02/22 History multivitamin 1 tab PO DAILY 10/01/18 02/02/22 History timolol 0.5 % eye drops 1 drp OPB QAM 10/01/18 02/02/22 History aspirin 81 mg tablet 81 mg PO DAILY 02/02/22 02/02/22 History rivaroxaban 10 mg tablet 10 mg PO DAILY 02/02/22 02/02/22 History Inpatient Medication List Atorvastatin Calcium (Atorvastatin 10 Mg Tab) 10 mg PO HS LEAH Stop: 03/04/22 20:59 Last Admin: 02/03/22 20:00 Dose: 10 mg Documented By: Admin: 02/02/22 21:42 Dose: 10 mg Documented By: FREDI Losartan Potassium (Losartan Potassium 50 Mg Tab) 50 mg PO BID LEAH Stop: 03/04/22 20:59 Last Admin: 02/03/22 08:37 Dose: 50 mg Documented By: Admin: 02/02/22 21:42 Dose: 50 mg Documented By: FREDI Multivitamins (Multivitamin Tab) 1 tab PO DAILY LEAH Stop: 03/05/22 08:59 Last Admin: 02/04/22 07:40 Dose: 1 tab Documented By: Admin: 02/03/22 08:38 Dose: 1 tab Documented By: KEIRY Rivaroxaban (Rivaroxaban 10 Mg Tablet) 10 mg PO DAILY LEAH Stop: 03/04/22 12:52 Last Admin: 02/04/22 07:40 Dose: 10 mg Documented By: Admin: 02/03/22 08:38 Dose: 10 mg Documented By: Admin: 02/02/22 13:51 Dose: 10 mg Documented By: CC Timolol Maleate (Timolol Maleate 0.5% Op Soln 5 Ml Btl) 1 drops OP QAM LEAH Stop: 03/04/22 13:59 Last Admin: 02/04/22 07:41 Dose: 1 drops Documented By: Admin: 02/03/22 08:41 Dose: 1 drops Documented By: Admin: 02/02/22 13:52 Dose: 1 drops Documented By: CC Discontinued Medications Sodium Chloride (Nss) 500 mls @ 999 mls/hr IV .Q31M LEAH Stop: 02/02/22 09:00 Last Infusion: 02/02/22 09:57 Dose: 0 mls/hr Documented By: Admin: 02/02/22 08:55 Dose: 999 mls/hr Documented By: NH Sodium Chloride (Nss 1000ml) 1,000 mls @ 125 mls/hr IV .Q8H LEAH Stop: 02/02/22 20:52 Last Infusion: 02/02/22 21:52 Dose: 0 mls/hr Documented By: Admin: 02/02/22 13:52 Dose: 125 mls/hr Documented By: CC Description This is a 21 electrode EEG with a single channel dedicated to limited EKG. The electrodes were placed in accordance with the International 10-20 system. Interpretation Activity: There is a well organized background rhythm, without focal or generalized slowing. 8 Hz, 25 to 35 V posterior activity, attenuates with eye opening bilaterally. Sleep: There is generalized, symmetrical, vertex sharp waves and sleep spindles are recorded, as an indicator of stage II sleep. Stimulation maneuvers: Photic stimulations induced posterior driving responses bilaterally and symmetrically. Hyperventilation is not attempted. Abnormal activity: There is no electrographic seizure or epileptiform discharge. Impression: This is a normal EEG, recorded in wakefulness and sleep. There is no electrographic seizure or epileptogenic discharge. Clinical Correlation Normal interictal EEG cannot rule out seizure disorder definitively. If clinically indicated, a follow-up study with prolonged recording and sleep deprivation might offer further information.
--- NOTE | 2022-02-04 11:38 | Cardiology Progress Note ---
Date of Service February 04, 2022 Assessment & Plan (1) Syncope: (2) Acute dehydration: (3) Pulmonary HTN: (4) Chronic kidney disease: (5) Hyperlipidemia: (6) Mitral valve prolapse: (7) Mitral regurgitation: (8) Carotid stenosis, bilateral: Plan Ischemic work-up is unremarkable. 2D echocardiogram shows normal LV wall motion without wall motion abnormalities. I do believe the cause of her symptoms were anxiety for which she has had similar previous episodes in the past. No further cardiac testing or intervention necessary at this time. Okay to discharge to home from a cardiac standpoint and follow-up with cardiology in the next 1 to 2 months. No medication changes will be made at this time. Admission and Anticipated Discharge Date Admission Date: February 03, 2022 Physical Exam Physical Exam: General: Awake, alert and oriented x 3. No acute distress. HEENT: Normocephalic, atraumatic. Pupils equal, round and reactive to light and accommodation. Extraocular muscles are intact. Anicteric sclera. Moist mucous membranes. Neck: No JVD. No bruit. Cardiovascular: Regular. Positive S-4. Normal S-1 and S-2. No S-3. 3/6 holosystolic ejection murmur, left sternal border, mid-clavicular line with radiation to the axilla. No rubs. Pulmonary: Clear to auscultation bilaterally. No rales, rhonchi, or wheezing. Abdomen: Bowel sounds x 4, soft. No rebound, guarding or tenderness. No organomegaly. Extremities: No clubbing, cyanosis or edema. +2 pedal pulses bilaterally. Skin: Warm and dry. Results & Data ([facility]) Vital Signs (Past 12 Hours) Vital Signs Temp Pulse Pulse Resp BP BP Pulse Ox 02/04/22 07:58 36.5 C 74 20 130/73 98 02/04/22 06:15 85 02/04/22 03:59 36.5 C 66 18 115/65 96 02/03/22 23:59 36.4 C L 76 18 112/66 95 O2 Del Method 02/04/22 07:58 Room Air 02/04/22 06:15 02/04/22 03:59 Room Air 02/03/22 23:59 Room Air (1) Chronic kidney disease Chronic kidney disease stage: stage 3 (moderate)
--- NOTE | 2022-02-04 13:32 | Hospitalist Progress Note ---
Date of Service February 04, 2022 Assessment & Plan (1) Syncope: Plan: Syncope Likely due to Orthostatic Hypotension Was recently started on Lasix as needed for ankle edema --CT Head:There is no hemorrhage, mass effect, or evidence of acute territorial ischemia by CT criteria. --ECHO: No change when compared to prior study. EF 60 to 65%. Grade 1 diastolic dysfunction. No segmental left ventricular wall motion abnormality. Mitral leaflets appear thickened, moderate and overall redundant consistent with myxomatous degeneration. Moderate mitral valve prolapse, moderate mitral regurgitation and moderate tricuspid regurgitation, moderate biatrial enl argement. --Troponin not elevated --EEG:This is a normal EEG, recorded in wakefulness and sleep. There is no electrographic seizure or epileptogenic discharge. --Positive Orthostatics --Hold Losartan for now. --Compression stocking --Monitor for arrhythmias Appreciate cardiology input Fall precautions Acute superficial venous thrombosis of right lower extremity: Plan: Continue Xarelto Pulmonary HTN: Plan: Chronic dyspnea, normal spirometry in 2019. Glaucoma: Plan: chronic, stable. Continue eye drops Chronic kidney disease: Plan: CKD III Avoid nephrotoxic agents as able Hyperlipidemia: Plan: Continue Atorvastatin Hypertension: Plan: Monitor BP off Losartan DVT prophylaxis: Plan: Xarelto Code Status Full code Disposition Home. Patient declined Home Health Services Admission and Anticipated Discharge Date Admission Date: February 03, 2022 Subjective Patient is seen and examined at bedside Eager to get discharged No new complaints Denies any chest pain, shortness of breath, dizziness, nausea, abdominal pain Review of Systems Review of Systems: All systems reviewed & are unremarkable except as noted in Subjective Physical Exam Physical Exam: Physical Exam: Vitals signs as noted above General Appearance:Thin, frail, elderly, no apparent distress Head: normocephalic, Atraumatic Eyes: normal inspection, EOMI Neck: supple, Trachea midline Respiratory/Chest: Normal breath sounds, CTA, No accessory muscle use Cardiovascular: S1, S2, +murmur Abdomen/GI:Soft, Non tender, Bowel sounds present Extremities/Musculoskeletal:normal inspection, 1+ B/L edema Neurologic/Psych:AAOX3, grossly no focal neurological deficits Skin: normal color, warm Results & Data Results & Data ([facility]) Vital Signs (Past 12 Hours) Vital Signs Temp Pulse Pulse Resp BP BP Pulse Ox 02/04/22 07:58 36.5 C 74 20 130/73 98 02/04/22 06:15 85 02/04/22 03:59 36.5 C 66 18 115/65 96 O2 Del Method 02/04/22 07:58 Room Air 02/04/22 06:15 02/04/22 03:59 Room Air Laboratory Results [facility] 02/04/22 05:51 Sodium 140 Potassium 3.9 Chloride 109 H Carbon Dioxide 26 BUN 22 Creatinine 0.80 Glucose 88 Calcium 8.9
--- NOTE | 2022-02-04 13:57 | Discharge Summary ---
Date of Service February 04, 2022 Admission HPI Per Admitting Provider 86 yo F presented via EMS after syncopal event in her kitchen this morning. She awoke and walked to the kitchen to get her morning coffee. She said she couldn't remember if she poured it or not but the next thing she remembered was finding herself on her kitchen floor. There were no prodromal symptoms. She felt somewhat lightheaded but was clear. She reported going to her bed and lying down and ultimately calling EMS out of concern that something bad happened. She doesn't report pain anywhere, denies pain in her chest and no shortness of breath. Denies any recent respiratory symptoms. Reports feeling fine, in fact, yesterday was out in her garden most of the day. Denies dysuria, urinary urgency, abdominal pain. Denies headache. Recent medication changes include low dose Xarelto for treatment of a superficial blood clot in her right leg after she reported some swelling. Uses LAsix as needed for swelling, which is typically daily, but didn't take them today. She has no stroke symptoms today. No known heart or lung disease (normal spirometry in November 2018). She has MVP and is seen at [facility] for this, last echo was in 2019. She has bilateral carotid disease that is known a nd asymptomatic. She has a h/o reported pulmonary hypertension. She is not on oxygen but is chronically short of breath. No changes in this recently. EKG reveals no evidence of ischemia and highly sensitive troponin is negative, CXR is clear, urinalysis is pending, CBC and BMP are unremarkable aside for an elevated BUN:creat ratio and CKD Stage III which is chronic. ROS reveals that she has been eating and drinking well and denies any bleeding or bruising. Admission Exam Per Admitting Provider Physical Exam Physical Exam: CONSTITUTIONAL: WNWD, vitals as above, generally well- appearing, NAD EYES: EOMI bilaterally, PERRL, normal conjunctivae, no scleral icterus ENT: external ear and nose normal, oropharynx clear, MMM NECK: trachea midline RESPIRATORY: clear to auscultation bilaterally, no crackles, rales or wheezes, normal respiratory effort CARDIOVASCULAR: regular rate and rhythm, S1 and 2 heard without murmurs, gallops or rubs, no JVD, no peripheral edema, no carotid bruits CHEST: inspection of chest was normal GASTROINTESTINAL: soft, nontender, ND, no guarding MUSCULOSKELETAL: strength 5/5 throughout, head is normocephalic and atraumatic, she is wearing OTC bilateral foot/ankle compression stockings which are cutting off circulation to her toes which are white. These were removed. Feet are cool to touch and sensation intact. SKIN: warm and dry NEUROLOGIC: No facial palsy, no dysarthria. CN 2-12 grossly intact, no sensory deficit, normal cognition, normal speech, no tremor PSYCHIATRIC: alert cooperative and oriented to person, place and time. Principal Diagnosis Syncope Likely due to Orthostatic Hypotension Discharge Data Allergies Allergy/AdvReac Type Severity Reaction Status Date / Time latex Allergy Intermediate SWELLING Verified 10/27/18 08:03 blisters reddness lisinopril Allergy Mild Cough Verified 10/27/18 08:03 Consultations 02/02/22 10:24 ED Decision to Admit Stat 02/02/22 17:33 Consult Cardiology Routine Procedures Performed --CT head: FINDINGS: Brain parenchyma: There is age-related involutional change noting advanced confluent subcortical and periventricular microangiopathic disease. There is no hemorrhage, mass effect, or evidence of acute territorial ischemia by CT criteria. Latif-white matter differentiation is preserved. No extra-axial fluid collection is seen. Ventricles, sulci, cisterns: Prominent secondary to involutional change. Intracranial vasculature: There is atherosclerotic calcification of the cavernous carotid and vertebral arteries. Calvarium: The skeletal structures are osteopenic. No depressed calvarial fracture is identified. Sinuses and mastoids: The visualized paranasal sinuses are clear. There is thickening and sclerosis of the wall of the left maxillary antrum. The mastoid air cells are well pneumatized. Orbits: The bony orbits are grossly intact. There are bilateral ocular lens implants. IMPRESSION: There is no hemorrhage, mass effect, or evidence of acute terr itorial ischemia by CT criteria. CXR: FINDINGS: An AP, portable, upright chest radiograph is compared to study dated 12/28/2010. The examination is degraded by portable technique and apical lordotic positioning. The heart is mildly enlarged noting atherosclerotic calcification of the thoracic aorta. The pulmonary vasculature is noncongested. Chronic interstitial thickening is similar to previous. There is bibasilar scarring/atelectasis. The lungs and pleural spaces are otherwise clear. No pneumothorax is seen. The skeletal structures are osteopenic. The bony thorax is grossly intact. IMPRESSION: Mild cardiomegaly with no acute cardiopulmonary abnormality identified. Ordered Studies 02/02/22 08:22 CT head/brain wo con Stat Hospital Course (1) Syncope: Syncope Likely due to Orthostatic Hypotension Was recently started on Lasix as needed for ankle edema --CT Head:There is no hemorrhage, mass effect, or evidence of acute territorial ischemia by CT criteria. --ECHO: No change when compared to prior study. EF 60 to 65%. Grade 1 diastolic dysfunction. No segmental left ventricular wall motion abnormality. Mitral leaflets appear thickened, moderate and overall redundant consistent with myxomatous degeneration. Moderate mitral valve prolapse, moderate mitral regurgitation and moderate tricuspid regurgitation, moderate biatrial enlargement. --Troponin not elevated --EEG:This is a normal EEG, recorded in wakefulness and sleep. There is no electrographic seizure or epileptogenic discharge. --Positive Orthostatics --Hold Losartan for now. --Compression stocking --Monitor for arrhythmias Appreciate cardiology input Fall precautions Acute superficial venous thrombosis of right lower extremity: Plan: Continue Xarelto Pulmonary HTN: Plan: Chronic dyspnea, normal spirometry in 2019. Glaucoma: Plan: chronic, stable. Continue eye drops Chronic kidney disease: Plan: CKD III Avoid nephrotoxic agents as able Hyperlipidemia: Plan: Continue Atorvastatin Hypertension: Plan: Monitor BP off Losartan DVT prophylaxis: Plan: Xarelto Code Status Full code Disposition Home. Patient declined Home Health Services Total Time Total Time Spent Total Time Spent (In Minutes): 49 minutes Discharge Plan Discharge Items Patient Disposition: Home - Self-Care Reason For Visit: syncope Discharge Diagnosis: Syncope Likely due to Orthostatic Hypotension Activity: Per Instructions section Exercise/Sports: Gradually increase as tolerated Non-emergency contact: Primary Care Provider Call non-emergency contact if: you have any medication questions, your symptoms worsen, your pain is concerning for you and you have a fever Follow-up/Referrals: Roseanne Horowitz MD [Outside Practitioners] - (Date & Time 02/07/2022 11:00 AM Provider Roseanne Horowitz MD Department General Internal Medicine [facility] ) Diet: Heart Healthy Addtl Attending Provider Instructions: Follow-up with your primary care physician on 02/07/2022 11:00 AM Follow up with your [employer] Layer [employer] in 1-2 months as recommended by your journeyman pipe welder. -- Your losartan is discontinued as your blood pressure was noted to be low during your hospital stay. Discussed with your physician for further adjustment of your medications as needed. --Use compression stockings regularly as advised. Seek immediate medical attention if your symptoms reoccur or worsen Please take all medications as instructed on discharge list below. Please call if you have any questions or problems. You can reach a [facility] hospitalist on duty at [facility] 24 hours a day by calling [phone] Pending Studies at Discharge: No Stand-Alone Forms: My [facility], Smoking Cessation Medications and DC Order Prescriptions: Continued multivitamin Tablet 1 tab PO DAILY atorvastatin 10 mg Tablet 10 mg PO HS timolol 0.5 % Drops 1 drp OPB QAM furosemide 20 mg Tablet 20 mg PO DAILY PRN (Reason: swelling) Prolia 60 mg/mL Syringe 1 dose SUBCUT UD Rx Instructions: EVERY 6 MONTHS rivaroxaban 10 mg Tablet 10 mg PO DAILY Rx Instructions: for 35 days aspirin 81 mg Tablet 81 mg PO DAILY Discontinued losartan 100 mg Tablet 50 mg PO BID Discharge Orders: Discharge Order (Routine); Ordered 02/04/22 Ordered By: Lenard Carreno Admission Data Admit Date/Time: 02/03/22 15:06 Attending Provider: Lenard Carreno Admit Provider: Juliette Miguel Primary Care Provider: Laura Dey Other Providers: Juliette Miguel ; Micheal Larios
--- NOTE | 2022-02-04 16:03 | Electrocardiogram Report ---
Test Reason : Blood Pressure : / mmHG Vent. Rate : 071 BPM Atrial Rate : 071 BPM P-R Int : 190 ms QRS Dur : 090 ms QT Int : 378 ms P-R-T Axes : 069 023 080 degrees QTc Int : 410 ms Normal sinus rhythm Nonspecific T wave abnormality Abnormal ECG When compared with ECG of 03-FEB-2022 06:34, Nonspecific T wave abnormality now evident in Lateral leads Confirmed by Pranav Monge ([id number]) on 02/04/2022 4:03:19 PM Referred By: REFERRED SELF Confirmed By:Pranav Monge
== END 2022-02-04 14:50 | disposition home or self-care (01) | DRG 312 ==
LOC: 2N 08:02 → ED 08:02 → SUATTDRO 10:43 → 2N 12:22

== ENCOUNTER 2023-10-07 10:45 | Inpatient (IN) ==
--- NOTE | 2023-10-07 11:07 | Emergency Department Note ---
Impression & Plan CVA (cerebral vascular accident), Atrial flutter, Acute confusion, Pre-syncope ED Provider Note NAME: RENE CROFT AGE: 87 SEX: F : 1935 ARRIVES VIA: Walk-In INFORMANT: Patient, patient brother ED PROVIDER(S): Blaze Garcia MD CHIEF COMPLAINT: Confusion, presyncopal symptoms MEDICAL DECISION MAKING: Patient presents due to concern for increasing weakness and lightheadedness. IV was established and blood work was obtained. The patient's weight is up about 1 kg from 2021. Blood work shows a normal white count H and H and platelet count kidney function is unremarkable but with prerenal azotemia mild elevation in calcium at 10.5. BNP is elevated to 42. Urinalysis without evidence of obvious infection. The patient CT head was negative. I did speak with the patient and informed him of the findings. Patient's confusion is somewhat vague symptoms but I did discuss it with neurology recommended angiographies of the head and neck and MRI brain with and without contrast. Patient also did have concern for possible atrial flutter that was intermittent. Nursing had reported this and I did review the rhythm strip that appeared to show likely atrial flutter. I did send this to Dr. Hurley who agreed that it likely was in atrial flutter. He is in agreement the patient may continue on heparin at this time and long-term anticoagulant use can be discussed later. I did speak with the on-call hospital service Dr. Darby and the patient was admitted to the medicine service. CTA showed the possibility of fibromuscular dysplasia. Patient's MR brain did show concern for acute punctate infarct in the right posterior frontal lobe. Critical Care: I have personally spent 55 minutes of critical care time in direct management of this patient. This includes bedside care, interpretation of diagnostic studies, and testing, discussion with consultants, patient, and family members, and other require inpatient management activities. This 55 minutes is in excess of all separately billable procedures. Discussion w/ other healthcare providers: Dr. Martinez with [facility] neurology Dr. Hurd with inpatient medicine service Dr. Hurley with cardiology Prior /Outside records reviewed: I did review discharge summary from February 04, [address] Carreno. Patient reportedly had a syncopal event at the time of presentation. Patient was diagnosed with syncope likely due to orthostatic hypotension. Patient did have an echo completed at that time with an EF of 60 to 65% grade 1 diastolic dysfunction no segmental left ventricular wall motion abnormality EEG was reportedly normal positive for orthostasis. I reviewed a telephone consultation from nursing hotline where the patient was referred to the emergency department today. I reviewed a prior cardiology visit from November 2022. Patient does have report of chronic lower extremity venous insufficiency and takes an extra dose of Lasix maybe once or twice weekly. Review shows the patient has a history of mitral valve prolapse dyslipidemia bilateral carotid artery stenosis you were found to have an elevated blood pressure today (>120 sytolic or >90 diastolic). Per medicare guidelines, you need to follow up with this blood pressure screening with your Primary Care Physician (PCP). For a new PCP call [phone]. Take your blood pressure 30 minutes after you take your medication. Make sure that you do it sitting in a chair in a quiet room after 5 minutes in the chair. Ensure that your arm is supported and resting at the level of her heart. Take 2 blood pressures 5 minutes apart to obtain an average. If you are consistently elevated you may benefit from a follow up appointment with your primary care physician to discuss your blood pressure and medication. Tricuspid regurgitation and peripheral venous insufficiency. Per review of this medication list the patient takes atorvastatin metoprolol Lasix aspirin and uses JANICE stockings. Patient also uses timolol and takes a multivitamin Differential diagnosis: Infection, dehydration, metabolic abnormality, hypo/hyperglycemia, electrolyte imbalance, anemia, UTI, pneumonia, thyroid dysfunction among others were considered. Diagnostics, as interpreted by me: ECG: Normal sinus rhythm, rate of 74, normal intervals, normal axis no ST elevations T wave flattening V2 but not V3. Cardiac monitoring: An order was placed for continuous cardiac monitoring. The monitor shows a rate of 75 with sinus rhythm. Patient was placed on pulse oximetry Medical decision rules: None Imaging studies: I informally interpreted the patient's chest x-ray does not show obvious pneumonia or pneumothorax with formal report to follow. HPI: Patient presents due to concern for weakness and presyncopal symptoms. Patient reportedly is also having some confusion and mixed up about some things. Patient's brother at bedside states that she has been a bit more confused and states that she is "90% there." Patient reports that she was lightheaded and dizzy and that she laid herself down on the floor of the kitchen and crawled into the bedroom yesterday and then called the son. She did not want him to arrive on Friday but she was checked on today. Patient does admit to feeling a bit confused but cannot give a specific example although family at bedside states that she did not know where she was going today. Patient denies actually passing out or fall but did lay herself down on the ground. Patient denies any numbness tingling or focal weakness. Patient does have a history of CHF and states that she does take a water pill and follows with [facility] cardiology. Patient states she takes no other medications. No alcohol tobacco or drug use. No head or neck pain. Patient denies any upper respiratory symptoms and no abdominal pain nausea vomiting or diarrhea. Patient denies any urinary symptoms. Patient does have chronic leg swelling but states this is unchanged PAST MEDICAL HISTORY: See Below PAST SURGICAL HISTORY: See Below SOCIAL HISTORY: See Below HOME MEDICATIONS: See Below ALLERGIES: See Below VITALS: See Below PHYSICAL EXAMINATION: GENERAL: NAD, non-toxic. EYE EXAM: Normal conjunctiva. PERRL, no anisocoria and EOM's grossly intact w/o pain. OROPHARYNX: Moist mucus membranes, grossly normal dentition. NECK: Trachea midline, no stridor. Supple, no nuchal rigidity, no adenopathy, non-tender. No signs of meningismus. FROM of the neck with good chin to chest and neck extension. LUNGS: Bibasilar crackles noted. Normal chest wall mechanics. HEART: NSR, no MRG. ABDOMEN: Abdomen soft, non-tender, no masses, no rebound or guarding. BACK: No CVA TTP. SKIN: No rashes and no bruising. UPPER EXTREMITIES: Upper extremities are grossly normal. LOWER EXTREMITIES: Grossly normal, mild lower extremity swelling without pitting edema. NEURO EXAM: A&O x3, cranial nerves II-XII grossly intact, normal speech, moves all 4 extremities. Past Med/Surg History Medical History Pulmonary HTN Chronic kidney disease STAGE 3 Osteoarthritis Glaucoma Mitral valve prolapse FOLLOWED BY DR. POST Hypertension Hyperlipidemia Surgical History History of left cataract surgery 10/13/18: was given 2mg of IV versed History of colonoscopy History of thyroidectomy, subtotal GOITER REMOVED ? DETAILS Family History Mother Family history of diabetes mellitus Father Heart disease Sister Pulmonary embolism Social History Smoking Status: Never smoker Second Hand Exposure: No; Do You Dip or Chew Tobacco: No; Hx Alcohol Use: Yes Alcohol type: wine Hx Substance Use: No Preferred Language: Slovak Communication Ability: Effective Resin Mixer Required: No Beliefs That Will Affect Care: None marital status: Single Current Living Situation: Alone Other Information That Helps Us Care for You: No Feels Safe at Home: Yes Safety Concerns: Feels Safe At This Time Assistive Devices: Cane Allergies Allergies Allergy/AdvReac Type Severity Reaction Status Date / Time latex Allergy Intermediate SWELLING Verified 10/27/18 08:03 blisters reddness lisinopril Allergy Mild Cough Verified 10/27/18 08:03 Home Meds Home Medications Medication Instructions Recorded Confirmed atorvastatin 10 mg tablet 0 mg PO HS 10/01/18 10/07/23 denosumab 60 mg/mL subcutaneous 1 dose subcut UD 10/01/18 10/07/23 syringe (Prolia) furosemide 20 mg tablet 20 mg PO DAILY PRN swelling 10/01/18 10/07/23 multivitamin 1 tab PO DAILY 10/01/18 10/07/23 timolol 0.5 % eye drops 1 drp OPB QAM 10/01/18 10/07/23 aspirin 81 mg tablet 81 mg PO DAILY 02/02/22 10/07/23 metoprolol succinate 25 mg 0 mg PO UD 10/07/23 10/07/23 tablet,extended release 24 hr Results & Data (ED) Vital Signs Vital Signs - 24 hr 10/07/23 10:53 10/07/23 12:00 10/07/23 12:01 Temperature 36.5 C Temperature Source Temporal Artery Scan Pulse Rate 85 Pulse Rate [Apical] 75 Respiratory Rate 20 22 Respiratory Effort / Characteristics Non-Labored Spontaneous Respiratory Depth Normal Blood Pressure 156/76 H Blood Pressure [Right Arm] 153/77 H Blood Pressure Mean 102 Blood Pressure Mean [Right Arm] 102 Pulse Oximetry 97 96 96 Oxygen Delivery Method Room Air Room Air Room Air Sepsis Recent Fever Within 48 Hours No Sepsis New/Unexplained Change in Mental Status N/A Sepsis Action Taken by Nursing No Action Required 10/07/23 12:11 Temperature Temperature Source Pulse Rate Pulse Rate [Apical] Respiratory Rate Respiratory Effort / Characteristics Respiratory Depth Blood Pressure Blood Pressure [Right Arm] Blood Pressure Mean Blood Pressure Mean [Right Arm] Pulse Oximetry Oxygen Delivery Method Room Air Sepsis Recent Fever Within 48 Hours Sepsis New/Unexplained Change in Mental Status Sepsis Action Taken by [facility] Medications Current Medication List: was personally reviewed by me Laboratory Data Attestation: I reviewed the patient's lab results. 10/08/23 06:42 10/08/23 06:42 Lab Results 10/07/23 10/07/23 Range/Units 12:00 14:02 WBC 5.41 (4.8-10.8) K/ul RBC 4.14 L (4.20-5.40) M/uL Hgb 12.8 (12.0-16.0) g/dl Hct 39.7 (37.0-47.0) % MCV 95.9 (80.0-100.0) fL MCH 30.9 (25.0-34.0) pg MCHC 32.2 (32.0-36.0) g/dL RDW Std Deviation 45.4 (36.4-46.3) fL RDW Coeff of Justyn 12.8 (11.5-14.5) % Plt Count 166 (130-400) K/uL MPV 10.3 (9.4-12.4) fL Immature Gran % (Auto) 0.2 % Neut % (Auto) 60.1 % Lymph % (Auto) 27.9 % [place] % (Auto) 9.6 % Eos % (Auto) 1.8 % Baso % (Auto) 0.4 % Neut # (Auto) 3.25 (1.40-6.50) K/uL Lymph # (Auto) 1.51 (1.20-3.40) K/uL [place] # (Auto) 0.52 (0.11-0.59) K/uL Eos # (Auto) 0.10 (0.00-0.50) K/uL Baso # (Auto) 0.02 (0.00-0.20) K/uL Immature Gran # (Auto) 0.01 (0.01-0.20) K/uL PT Cancelled 11.1 INR Cancelled 1.0 Sodium 137 (136-145) mmol/L Potassium 4.0 (3.5-5.1) mmol/L Chloride 102 (98-107) mmol/L Carbon Dioxide 30 (21-32) mmol/L Anion Gap 5 (3-11) BUN 22 (6-23) mg/dl Creatinine 0.79 (0.6-1.2) mg/dl Est Cr Clr Drug Dosing 40.5 ml/min Est GFR ( Amer) 77.5 ml/min Est GFR (Non-Af Amer) 66.8 ml/min BUN/Creatinine Ratio 27.8 H (10-20) Glucose 115 H (70-99(Fasting)) mg/dl Calcium 10.5 H (8.6-10.3) mg/dl Magnesium 2.0 (1.7-2.4) mg/dl Total Bilirubin 0.6 (0.2-1.0) mg/dl AST 25 (13-39) U/L ALT 19 (7-52) U/L Alkaline Phosphatase 54 (34-104) U/L Troponin I High Sens 10.3 (0-14) pg/ml B-Natriuretic Peptide 242 H (0-100) pg/ml Total Protein 7.0 (6.0-8.3) gm/dl Albumin 4.1 (3.4-5.0) gm/dl Globulin 2.9 (2.5-4.0) gm/dl Albumin/Globulin Ratio 1.4 (0.9-2) TSH 1.339 (0.300-4.500) uIu/ml Urine Color Yellow Urine Appearance Clear (Clear) Urine pH 7.0 (4.5-7.5) Ur Specific [place] 1.008 (1.000-1.030) Urine Protein Negative (Negative) Urine Glucose (UA) Negative (Negative) Urine Ketones Negative (Negative) Urine Blood Negative (Negative) Urine Nitrite Negative (Negative) Urine Bilirubin Negative (Negative) Urine Urobilinogen Negative (Negative) Ur Leukocyte Esterase 1+ H (Negative) Urine WBC (Auto) 0-5 (0-5) /hpf Urine RBC (Auto) 0-2 (0-2) /hpf U Hyaline Cast (Auto) 0-2 (0-2) /lpf U Epithel Cells (Auto) 0-2 (0-2) /hpf Urine Bacteria (Auto) None Seen (None Seen) Administered Medications Aspirin (Aspirin 81 Mg Ectab) 81 mg PO DAILY [facility] Stop: 11/07/23 08:59 Last Admin: 10/08/23 09:41 Dose: 81 mg Documented By: ROSI Atorvastatin Calcium (Atorvastatin 40 Mg Tab) 40 mg PO HS LEAH Stop: 11/06/23 20:59 Last Admin: 10/07/23 19:46 Dose: 40 mg Documented By: BABAK Heparin Sodium/Dextrose (Heparin Sodium/Dextrose) 25,000 units in 500 mls @ 14 mls/hr IV .Q24H LEAH; Protocol Stop: 11/06/23 16:59 Last Titration: 10/08/23 08:27 Dose: 700 units/hr, 14 mls/hr Documented By: ROSI Co-signed By: VEENA Titration: 10/08/23 07:10 Dose: 700 units/hr, 14 mls/hr Documented By: ROSI Co-signed By: BABAK Titration: 10/08/23 01:10 Dose: 700 units/hr, 14 mls/hr Documented By: BABAK Co-signed By: IMAN Titration: 10/07/23 19:12 Dose: 650 units/hr, 13 mls/hr Documented By: ROSI Co-signed By: BABAK Admin: 10/07/23 17:53 Dose: 650 units/hr, 13 mls/hr Documented By: JENNIFER Co-signed By: HELENA Lactic Acid (Ammonium Lactate 12% Lotion 225 Gm Btl) 1 gm EXT BID [facility] Stop: 11/07/23 12:59 Last Admin: 10/08/23 13:04 Dose: 1 gm Documented By: ROSI Multivitamins (Multivitamin Tab) 1 tab PO DAILY LEAH Stop: 11/07/23 08:59 Last Admin: 10/08/23 09:41 Dose: 1 tab Documented By: ROSI Discontinued Medications Gadobutrol (Gadobutrol 65ml Vial) 5.2 ml IV ONCE ONE Stop: 10/07/23 17:15 Last Admin: 10/07/23 17:19 Dose: 5.2 ml Documented By: WILLIAM Heparin Sodium/Dextrose (Heparin Iv Adult Wt-Based Low-Dose *No* Initial Bolus Protocol) 1 each IV ONE STA; Protocol Stop: 10/07/23 16:33 Last Admin: 10/07/23 17:53 Dose: 1 each Documented By: ANTONIO Ioversol (Optiray 320 125ml) 117 ml IV ONCE ONE Stop: 10/07/23 15:38 Last Admin: 10/07/23 15:40 Dose: 117 ml Documented By: MARGARITA Metoprolol Succinate (Metoprolol Succ 25mg Ext Rel Tab) 12.5 mg PO DAILY LEAH Stop: 11/06/23 18:59 Last Admin: 10/08/23 09:41 Dose: 12.5 mg Documented By: Admin: 10/07/23 19:46 Dose: 12.5 mg Documented By: BABAK Imaging Data Radiologist's Impression: Head CT 10/07/23 11:22 CT head/brain wo con CLINICAL HISTORY: 87 years-old Female with confusion. Acutely altered mental status TECHNIQUE: Multiple axial CT images of the head were obtained without contrast. A dose lowering technique was utilized adhering to the principles of ALARA. CT DOSE: 547.75 mGy.cm COMPARISON: 02/02/2022 FINDINGS: No acute intracranial hemorrhage, midline shift, intracranial mass, hydrocephalus, territorial ischemia or abnormal extra-axial collection. Involutional changes with extensive chronic microvascular ischemic disease redemonstrated. The calvarium is intact. Chronic volume loss with mucoperiosteal thickening of the left maxillary sinus. IMPRESSION: No acute intracranial abnormality. ACT 112: Negative or not required by law. The above report was generated using voice recognition software. It may contain grammatical, syntax or spelling errors. Electronically signed by: Paul Vidal M.D. 10/07/2023 12:14 PM Chest X-Ray 10/07/23 11:23 XR chest 1V portable HISTORY: 87 years-old Female weakness COMPARISON: 02/02/2022 TECHNIQUE: AP view of the chest FINDINGS: Cardiomediastinal and hilar silhouettes are within normal limits. Atherosclerosis of the aorta. Chronic interstitial coarsening. No pneumothorax, pleural effusion or pulmonary edema. Degenerative changes of the shoulders and spine with lumbar levoscoliosis. IMPRESSION: No acute process. ACT 112: Negative or not required by law. The above report was generated using voice recognition software. It may contain grammatical, syntax or spelling errors. Electronically signed by: Paul Vidal M.D. 10/07/2023 12:[address] 10/07/23 11:22 CT head/brain wo con CLINICAL HISTORY: 87 years-old Female with confusion. Acutely altered mental status TECHNIQUE: Multiple axial CT images of the head were obtained without contrast. A dose lowering technique was utilized adhering to the principles of ALARA. CT DOSE: 547.75 mGy.cm COMPARISON: 02/02/2022 FINDINGS: No acute intracranial hemorrhage, midline shift, intracranial mass, hydrocephalus, territorial ischemia or abnormal extra-axial collection. Involutional changes with extensive chronic microvascular ischemic disease redemonstrated. The calvarium is intact. Chronic volume loss with mucoperiosteal thickening of the left maxillary sinus. IMPRESSION: No acute intracranial abnormality. ACT 112: Negative or not required by law. The above report was generated using voice recognition software. It may contain grammatical, syntax or spelling errors. Electronically signed by: Paul Vidal M.D. 10/07/2023 12:14 PM Chest X-Ray 10/07/23 11:23 XR chest 1V portable HISTORY: 87 years-old Female weakness COMPARISON: 02/02/2022 TECHNIQUE: AP view of the chest FINDINGS: Cardiomediastinal and hilar silhouettes are within normal limits. Atherosclerosis of the aorta. Chronic interstitial coarsening. No pneumothorax, pleural effusion or pulmonary edema. Degenerative changes of the shoulders and spine with lumbar levoscoliosis. IMPRESSION: No acute process. ACT 112: Negative or not required by law. The above report was generated using voice recognition software. It may contain grammatical, syntax or spelling errors. Electronically signed by: Paul Vidal M.D. 10/07/2023 12:06 PM Brain MRI 10/07/23 14:28 Brain MRI WITH AND WITHOUT CONTRAST HISTORY: confusion TECHNIQUE: Multiplanar multisequence MRI of the brain was performed both before and after the intravenous administration of contrast. COMPARISON STUDY: Head CT 10/07/2023. FINDINGS: There is a single punctate focus of restricted diffusion within the right posterior frontal lobe near the high convexity. This is consistent with a small acute infarct. The midline structures are intact. Patchy periventricular white matter T2 hyperintensity is nonspecific but favors advanced microvascular ischemic change given the patient's age. Prior bilateral lens replacement. Hypoplastic left maxillary sinus. The mastoid air cells are clear. The major vascular flow-voids at the skull base are maintained. The ventricles and sulci demonstrate mild age-related involutional changes. There is no mass, hematoma, or midline shift. No abnormal enhancement. IMPRESSION: 1. A punctate acute infarct within the right posterior frontal lobe. 2. Advanced microvascular ischemic changes. ACT 112: Negative or not required by law. Electronically signed by: Dane Pedro M.D. 10/07/2023 5:30 PM Head CTA 10/07/23 14:28 CT ANGIOGRAM OF THE BRAIN; CT ANGIOGRAM OF THE NECK CLINICAL HISTORY: Change in mental status. COMPARISON STUDY: Unenhanced CT of the brain performed the same day 10/07/2023. TECHNIQUE: Following the IV administration of 117 of Optiray 320, CT angiogram of the head and neck was performed from the aortic arch to the vertex. Images are reviewed in the axial, sagittal, and coronal planes. 3-D MIPS images are created and assessed. IV contrast was administered without complication. All measurements were calculated based on NASCET criteria. A dose lowering technique was utilized adhering to the principles of ALARA. CT DOSE: 349.26 mGy.cm FINDINGS: Brain parenchyma: There is age related involutional change noting advanced confluent subcortical and periventricular microangiopathic disease. There is no evidence of hemorrhage, mass effect, or acute territorial ischemia noting angiographic phase technique. There is no evidence of enhancing mass lesion on the angiogram phase images. The ventricles, sulci, and cisterns are prominent secondary to involutional change. Latif-white matter differentiation is preserved. No extra-axial fluid collection is seen. Thoracic aorta: There is atherosclerotic calcification of the thoracic aorta. Visualized portions of the thoracic aorta are normal in caliber. The aortic arch demonstrates standard 3-vessel anatomy. Right carotid arterial system: The right common carotid artery is widely patent, as are the right internal and external carotid arteries. Mild calcified plaque is seen in the carotid bulb. The internal carotid artery demonstrates a beaded appearance suggesting fibromuscular dysplasia. Left carotid arterial system: The left common carotid artery is widely patent, as are the left internal and external carotid arteries. Mild calcified plaque is noted in the carotid bulb. The internal carotid artery demonstrates a beaded appearance suggesting fibromuscular dysplasia. Vertebral arteries: Widely patent bilaterally noting left-sided dominance. Subclavian arteries: Widely patent bilaterally. Intracranial vasculature: There is atherosclerotic calcification of the cavernous carotid arteries. The internal carotid arteries are patent at the skull base, as are the anterior and middle cerebral arteries bilaterally. The vertebrobasilar system and posterior cerebral arteries are widely patent. The basilar artery is diminutive. There is origin of the left posterior cerebral artery. A large posterior communicating artery is seen on the right. The left vertebral artery is dominant. There is no aneurysm, high-grade stenosis, or focal vessel cut off seen throughout the intracranial circulation. Jugular veins: Patent bilaterally. Dural sinuses: Patent. Lung apices: Foci of parenchymal scarring are seen in the upper lobes. Scattered right upper lobe pulmonary nodules measure up to 7 mm. These may be inflammatory. Soft tissues: The visualized pharyngeal soft tissues are normal in appearance noting angiographic phase technique. The oropharyngeal airway appears widely patent. The left lobe of the thyroid gland is mildly enlarged. The thyroid is heterogeneous. The salivary glands are normal in appearance. No cervical lymphadenopathy is seen. Skeletal structures: The skeletal structures are osteopenic. The calvarium appears intact. The cervical spine is maintained noting multilevel spondylosis. Orbits: The bony orbits are intact. Orbital contents are normal as visualized noting bilateral ocular lens implants. Sinuses and mastoids: The left maxillary sinus is diminutive and partially opacified. The remaining paranasal sinuses are clear. The mastoid air cells are well pneumatized. IMPRESSION: 1. There is no evidence of hemorrhage, mass effect, or acute territorial ischemia noting angiographic phase technique. 2. Unremarkable CT angiogram of the brain. 3. The internal carotid arteries demonstrate beaded appearance bilaterally suggesting fibromuscular dysplasia. 4. Otherwise unremarkable CT angiogram of the neck. The neck vessels are widely patent. 5. There are scattered subcentimeter right upper lobe nodular opacities which may be inflammatory. These are not highly suspicious. Correlate clinically. ACT 112: Negative or not required by law. Electronically signed by: Jamie Noel M.D. 10/07/2023 4:06 PM Neck CTA 10/07/23 14:28 CT ANGIOGRAM OF THE BRAIN; CT ANGIOGRAM OF THE NECK CLINICAL HISTORY: Change in mental status. COMPARISON STUDY: Unenhanced CT of the brain performed the same day 10/07/2023. TECHNIQUE: Following the IV administration of 117 of Optiray 320, CT angiogram of the head and neck was performed from the aortic arch to the vertex. Images are reviewed in the axial, sagittal, and coronal planes. 3-D MIPS images are created and assessed. IV contrast was administered without complication. All measurements were calculated based on NASCET criteria. A dose lowering technique was utilized adhering to the principles of ALARA. CT DOSE: 349.26 mGy.cm FINDINGS: Brain parenchyma: There is age related involutional change noting advanced confluent subcortical and periventricular microangiopathic disease. There is no evidence of hemorrhage, mass effect, or acute territorial ischemia noting angiographic phase technique. There is no evidence of enhancing mass lesion on the angiogram phase images. The ventricles, sulci, and cisterns are prominent secondary to involutional change. Latif-white matter differentiation is preserved. No extra-axial fluid collection is seen. Thoracic aorta: There is atherosclerotic calcification of the thoracic aorta. Visualized portions of the thoracic aorta are normal in caliber. The aortic arch demonstrates standard 3-vessel anatomy. Right carotid arterial system: The right common carotid artery is widely patent, as are the right internal and external carotid arteries. Mild calcified plaque is seen in the carotid bulb. The internal carotid artery demonstrates a beaded appearance suggesting fibromuscular dysplasia. Left carotid arterial system: The left common carotid artery is widely patent, as are the left internal and external carotid arteries. Mild calcified plaque is noted in the carotid bulb. The internal carotid artery demonstrates a beaded appearance suggesting fibromuscular dysplasia. Vertebral arteries: Widely patent bilaterally noting left-sided dominance. Subclavian arteries: Widely patent bilaterally. Intracranial vasculature: There is atherosclerotic calcification of the cavernous carotid arteries. The internal carotid arteries are patent at the skull base, as are the anterior and middle cerebral arteries bilaterally. The vertebrobasilar system and posterior cerebral arteries are widely patent. The basilar artery is diminutive. There is origin of the left posterior cerebral artery. A large posterior communicating artery is seen on the right. The left vertebral artery is dominant. There is no aneurysm, high-grade stenosis, or focal vessel cut off seen throughout the intracranial circulation. Jugular veins: Patent bilaterally. Dural sinuses: Patent. Lung apices: Foci of parenchymal scarring are seen in the upper lobes. Scattered right upper lobe pulmonary nodules measure up to 7 mm. These may be inflammatory. Soft tissues: The visualized pharyngeal soft tissues are normal in appearance noting angiographic phase technique. The oropharyngeal airway appears widely patent. The left lobe of the thyroid gland is mildly enlarged. The thyroid is heterogeneous. The salivary glands are normal in appearance. No cervical lymphadenopathy is seen. Skeletal structures: The skeletal structures are osteopenic. The calvarium appears intact. The cervical spine is maintained noting multilevel spondylosis. Orbits: The bony orbits are intact. Orbital contents are normal as visualized noting bilateral ocular lens implants. Sinuses and mastoids: The left maxillary sinus is diminutive and partially opacified. The remaining paranasal sinuses are clear. The mastoid air cells are well pneumatized. IMPRESSION: 1. There is no evidence of hemorrhage, mass effect, or acute territorial ischemia noting angiographic phase technique. 2. Unremarkable CT angiogram of the brain. 3. The internal carotid arteries demonstrate beaded appearance bilaterally suggesting fibromuscular dysplasia. 4. Otherwise unremarkable CT angiogram of the neck. The neck vessels are widely patent. 5. There are scattered subcentimeter right upper lobe nodular opacities which may be inflammatory. These are not highly suspicious. Correlate clinically. ACT 112: Negative or not required by law. Electronically signed by: Jamie Noel M.D. 10/07/2023 4:06 PM Discharge Plan Visit Data Chief Complaint: Dizziness Stated Complaint: DIZZINESS,DISORIETED,FALL ED Provider: Blaze Garcia Discharge Problem: CVA (cerebral vascular accident), Atrial flutter, Acute confusion, Pre-syncope Patient Disposition: Admitted As Inpatient Discharge Instructions Interventions: ED Discharge Assessment Last Done: 10/07/23 18:04 Discharge Problem: CVA (cerebral vascular accident) Qualifiers: CVA mechanism: unspecified Qualified Code(s): I63.9 - Cerebral infarction, unspecified Atrial flutter Qualifiers: Atrial flutter type: unspecified Qualified Code(s): I48.92 - Unspecified atrial flutter
--- NOTE | 2023-10-07 12:08 | XRay Report ---
XR chest 1V portable HISTORY: 87 years-old Female weakness COMPARISON: 02/02/2022 TECHNIQUE: AP view of the chest FINDINGS: Cardiomediastinal and hilar silhouettes are within normal limits. Atherosclerosis of the aorta. Chron ic interstitial coarsening. No pneumothorax, pleural effusion or pulmonary edema. Degenerative change s of the shoulders and spine with lumbar levoscoliosis. IMPRESSION: No acute process. ACT 112: Negative or not required by law. The above report was generated using voice recognition software. It may contain grammatical, syntax o r spelling errors. Electronically signed by: Paul Vidal M.D. 10/07/2023 12:06 PM
--- NOTE | 2023-10-07 12:16 | CT Scan Report ---
CT head/brain wo con CLINICAL HISTORY: 87 years-old Female with confusion. Acutely altered mental status TECHNIQUE: Multiple axial CT images of the head were obtained without contrast. A dose lowering tech nique was utilized adhering to the principles of ALARA. CT DOSE: 547.75 mGy.cm COMPARISON: 02/02/2022 FINDINGS: No acute intracranial hemorrhage, midline shift, intracranial mass, hydrocephalus, territorial ischem ia or abnormal extra-axial collection. Involutional changes with extensive chronic microvascular isch emic disease redemonstrated. The calvarium is intact. Chronic volume loss with mucoperiosteal thickening of the left maxillary si nus. IMPRESSION: No acute intracranial abnormality. ACT 112: Negative or not required by law. The above report was generated using voice recognition software. It may contain grammatical, syntax o r spelling errors. Electronically signed by: Paul Vidal M.D. 10/07/2023 12:14 PM
[2023-10-07 12:21] LABS: Appearance Urine Clear (Clear); Bacteria Urine Automated None Seen (None Seen); Bilirubin Urine Negative (Negative); Blood Urine Negative (Negative); Cast Urine Automated 0-2 /lpf (0-2); Color Urine Yellow; Epithelial Cell Urine Auto 0-2 /hpf (0-2); Glucose Urine UA Negative (Negative); Ketones Urine Negative (Negative); Leukocyte Esterase Urine 1+ (Negative); Nitrite Urine Negative (Negative); Protein Urine Negative (Negative); RBC Urine Automated 0-2 /hpf (0-2); Specific Gravity Urine 1.008 (1.000-1.030); Urobilinogen Urine Negative (Negative); WBC Urine Automated 0-5 /hpf (0-5)
[2023-10-07 12:34] LABS: Basophils # (auto) 0.02 K/uL (0.00-0.20); Basophils % (auto) 0.4 %; Eosinophils % (auto) 1.8 %; Hematocrit (blood only) 39.7 % (37.0-47.0); Hemoglobin 12.8 g/dl (12.0-16.0); Immature Granulocytes # (auto) 0.01 K/uL (0.01-0.20); Immature Granulocytes % (auto) 0.2 %; Lymphocytes # (auto) 1.51 K/uL (1.20-3.40); Lymphocytes % (auto) 27.9 %; Mean Corpuscular Hemoglobin 30.9 pg (25.0-34.0); Mean Corpuscular Hgb Conc 32.2 g/dL (32.0-36.0); Mean Corpuscular Volume 95.9 fL (80.0-100.0); Mean Platelet Volume 10.3 fL (9.4-12.4); Monocytes # (auto) 0.52 K/uL (0.11-0.59); Monocytes % (auto) 9.6 %; Neutrophils # (auto) 3.25 K/uL (1.40-6.50); Neutrophils % (auto) 60.1 %; Platelet Count 166 K/uL (130-400); RDW Coefficient of Variation 12.8 % (11.5-14.5); RDW Standard Deviation 45.4 fL (36.4-46.3); Red Blood Count 4.14 M/uL (4.20-5.40); White Blood Count 5.41 K/ul (4.8-10.8)
[2023-10-07 12:39] LABS: Albumin Globulin Ratio 1.4 (0.9-2); Albumin Level 4.1 gm/dl (3.4-5.0); BUN Creatinine Ratio 27.8 (10-20); Bilirubin,Total 0.6 mg/dl (0.2-1.0); Calcium 10.5 mg/dl (8.6-10.3); Creatinine Clr Calc Pharmacy 40.5 ml/min; Est GFR (African American) 77.5 ml/min; Est GFR (Non-African American) 66.8 ml/min; Globulin 2.9 gm/dl (2.5-4.0)
[2023-10-07 12:45] LABS: Troponin I High Sensitivity 10.3 pg/ml (0-14)
[2023-10-07 12:53] LABS: Thyroid Stimulating Hormone 1.339 uIu/ml (0.300-4.500)
[2023-10-07 14:47] LABS: Prothrombin Time 11.1 Seconds (9.0-12.0)
--- NOTE | 2023-10-07 15:22 | History & Physical Report ---
Date of Service October 07, 2023 Assessment & Plan (1) Syncope: Plan: Hospitalized in the past d/t syncope, at that time believed to be d/t orthostatic hypotension Etiology of dizziness / pre-syncope not clear at this time - Possibly secondary to arrhythmia, orthostatic hypotension, carotid stenosis, MVP/ chf, pulm. HTN, ? cva/ neurological. At this point infectious etiology seems less likely. CTA head and neck - ordered MRI brain - ordered consider EEG Neurology consulted Monitor on Telemetry - pt had bursts of increased HR into 130s, possible Aflutter ED provider discussed w/ cardiology - starting IV heparin cont. home metoprolol BNP elev at 240s Echo ordered Cardiology consulted and will further discuss with Obtain orthostatics Infectious etiology rule out No leukocytosis, no fever reported CXR negat. UA negat. Blood cultx - pending Cont. home medications - but hold lasix at this time as pt received contrast. Monitor renal function as pt has hx of CKD and received contrast. Chronic conditions- HLD- cont. lipitor CODE : DNR/DNI - discussed with the pt and brother at the bedside - family reports she has it also in "writing" History of Present Illness Chief Complaint: feeling dizzy/ pre- syncope Primary Care Provider: Roseanne Horowitz MD 87 yo F w/ HLD, prediabetes, pulmonary hypertension, mitral valve prolapse, carotid artery stenosis (asymptomatic), HTN, Tricuspid regurg., venous insufficiency, CKD stage 3 presents w/ pre-syncopal episode and confusion. Initially called her brother on Friday that she felt dizzy, and so she crawled on the floor to her bed and laid down. Apparently over the weekend she was doing well, and continued with her normal activities, including going to the gn[employer]. Then on Friday she called her brother again that she did not feel well. She says that this morning she felt dizzy, had coffee and so she went outside and was sitting on the porch hoping she would feel better. Currently she does not remember that she called her brother on Friday. Brother and his are present at the bedside and provide the history. Currently patient is laying in bed in no acute distress, she is pleasant and she feels well. I observed her walking to the bathroom and back with a cane, without any dizziness or lightheadedness. She says that she has no chest pain palpitations or shortness of breath. However she reports that she does get lightheaded often, and gets some blurry vision. Denies any fevers chills cough, dysuria, abdominal pain nausea, constipation or diarrhea. Brother says that they called [facility] cardiology office, as patient follows with Dr. Post, and they were advised to come to the ED for evaluation. In the ED, noted HR into 130s, atrial flutter per ED provider. ED provider communicated w/ neurology and recommended CTA head and neck and MRI brain which was ordered. UA negat., CXR unremarkable, BNP elevated 242, calcium also elevated at 10.5 Previously admitted in January 2022 due to syncope, believed it to be secondary to orthostatic hypotension. Allergies Allergy/AdvReac Type Severity Reaction Status Date / Time latex Allergy Intermediate SWELLING Verified 10/27/18 08:03 blisters reddness lisinopril Allergy Mild Cough Verified 10/27/18 08:03 Home Medications Medication Instructions Recorded Confirmed Type atorvastatin 10 mg tablet 0 mg PO HS 10/01/18 10/07/23 History denosumab 60 mg/mL subcutaneous 1 dose subcut UD 10/01/18 10/07/23 History syringe (Prolia) furosemide 20 mg tablet 20 mg PO DAILY PRN swelling 10/01/18 10/07/23 History multivitamin 1 tab PO DAILY 10/01/18 10/07/23 History timolol 0.5 % eye drops 1 drp OPB QAM 10/01/18 10/07/23 History aspirin 81 mg tablet 81 mg PO DAILY 02/02/22 10/07/23 History metoprolol succinate 25 mg 0 mg PO UD 10/07/23 10/07/23 History tablet,extended release 24 hr Past Med/Surg History Medical History (Updated 02/03/22 @ 11:37 by Micheal Larios DO) Pulmonary HTN Chronic kidney disease STAGE 3 Osteoarthritis Glaucoma Mitral valve prolapse FOLLOWED BY DR. POST Hypertension Hyperlipidemia Surgical History History of left cataract surgery 10/13/18: was given 2mg of IV versed History of colonoscopy History of thyroidectomy, subtotal GOITER REMOVED ? DETAILS Family History Mother Family history of diabetes mellitus Father Heart disease Sister Pulmonary embolism Social History Smoking Status: Never smoker Second Hand Exposure: No; Do You Dip or Chew Tobacco: No; Hx Alcohol Use: Yes Alcohol type: wine Hx Substance Use: No Preferred Language: Chinese Communication Ability: Effective Operations Support Specialist Required: No Beliefs That Will Affect Care: None marital status: Single Current Living Situation: Alone Feels Safe at Home: Yes Assistive Devices: Cane and Glasses Review of Systems Review of Systems: All systems reviewed & are unremarkable except as noted in Subjective Physical Exam Constitutional: WD/WN, vitals as above Eyes: PERRL, conjunctivae normal, anicteric sclerae ENMT: external ear and nose normal, oropharynx normal Neck: trachea midline, no thyromegaly Respiratory: normal respiratory effort, lungs clear to auscultation Cardiovascular: RRR, no murmur, no edema Chest (Breasts): Chest: normal inspection of chest Gastrointestinal (Abdomen): normal bowel sounds, soft, nontender, no hep atosplenomegaly Musculoskeletal: no cyanosis or clubbing, extremities motor strength 5/5 (pt is wearing TEDs) Skin: no rashes, warm and dry Neurologic: PERRL, EOMI, accommodation nl, no face palsy, no dysarthria Psychiatric: A+Ox3, euthymic affect Results & Data Results & Data Vital Signs (Past 12 Hours) Vital Signs Temp Pulse Pulse Resp BP BP Pulse Ox 10/07/23 15:00 157/78 H 10/07/23 15:00 80 26 H 95 10/07/23 14:30 121/49 L 10/07/23 14:30 82 20 95 10/07/23 14:01 154/76 H 96 10/07/23 13:31 83 10/07/23 13:30 80 19 10/07/23 12:30 154/79 H 10/07/23 12:30 72 23 97 10/07/23 12:11 10/07/23 12:01 75 22 153/77 H 96 10/07/23 12:00 96 10/07/23 10:53 36.5 C 85 20 156/76 H 97 O2 Del Method 10/07/23 15:00 10/07/23 15:00 Room Air 10/07/23 14:30 04/30/24 14:30 Room Air 10/07/23 14:01 Room Air 10/07/23 13:31 10/07/23 13:30 10/07/23 12:30 10/07/23 12:30 Room Air 10/07/23 12:11 Room Air 10/07/23 12:01 Room Air 10/07/23 12:00 Room Air 10/07/23 10:53 Room Air Laboratory Results 10/07/23 10/07/23 Range/Units 14:02 12:00 WBC 5.41 (4.8-10.8) K/ul RBC 4.14 L (4.20-5.40) M/uL Hgb 12.8 (12.0-16.0) g/dl Hct 39.7 (37.0-47.0) % MCV 95.9 (80.0-100.0) fL MCH 30.9 (25.0-34.0) pg MCHC 32.2 (32.0-36.0) g/dL RDW Std Deviation 45.4 (36.4-46.3) fL RDW Coeff of Justyn 12.8 (11.5-14.5) % Plt Count 166 (130-400) K/uL MPV 10.3 (9.4-12.4) fL Immature Gran % (Auto) 0.2 % Neut % (Auto) 60.1 % Lymph % (Auto) 27.9 % Greer % (Auto) 9.6 % Eos % (Auto) 1.8 % Baso % (Auto) 0.4 % Neut # (Auto) 3.25 (1.40-6.50) K/uL Lymph # (Auto) 1.51 (1.20-3.40) K/uL Greer # (Auto) 0.52 (0.11-0.59) K/uL Eos # (Auto) 0.10 (0.00-0.50) K/uL Baso # (Auto) 0.02 (0.00-0.20) K/uL Immature Gran # (Auto) 0.01 (0.01-0.20) K/uL PT 11.1 Cancelled INR 1.0 Cancelled Sodium 137 (136-145) mmol/L Potassium 4.0 (3.5-5.1) mmol/L Chloride 102 (98-107) mmol/L Carbon Dioxide 30 (21-32) mmol/L Anion Gap 5 (3-11) BUN 22 (6-23) mg/dl Creatinine 0.79 (0.6-1.2) mg/dl Est Cr Clr Drug Dosing 40.5 ml/min Est GFR ( Amer) 77.5 ml/min Est GFR (Non-Af Amer) 66.8 ml/min BUN/Creatinine Ratio 27.8 H (10-20) Glucose 115 H (70-99(Fasting)) mg/dl Calcium 10.5 H (8.6-10.3) mg/dl Magnesium 2.0 (1.7-2.4) mg/dl Total Bilirubin 0.6 (0.2-1.0) mg/dl AST 25 (13-39) U/L ALT 19 (7-52) U/L Alkaline Phosphatase 54 (34-104) U/L Troponin I High Sens 10.3 (0-14) pg/ml B-Natriuretic Peptide 242 H (0-100) pg/ml Total Protein 7.0 (6.0-8.3) gm/dl Albumin 4.1 (3.4-5.0) gm/dl Globulin 2.9 (2.5-4.0) gm/dl Albumin/Globulin Ratio 1.4 (0.9-2) TSH 1.339 (0.300-4.500) uIu/ml Urine Color Yellow Urine Appearance Clear (Clear) Urine pH 7.0 (4.5-7.5) Ur Specific Western 1.008 (1.000-1.030) Urine Protein Negative (Negative) Urine Glucose (UA) Negative (Negative) Urine Ketones Negative (Negative) Urine Blood Negative (Negative) Urine Nitrite Negative (Negative) Urine Bilirubin Negative (Negative) Urine Urobilinogen Negative (Negative) Ur Leukocyte Esterase 1+ H (Negative) Urine WBC (Auto) 0-5 (0-5) /hpf Urine RBC (Auto) 0-2 (0-2) /hpf U Hyaline Cast (Auto) 0-2 (0-2) /lpf U Epithel Cells (Auto) 0-2 (0-2) /hpf Urine Bacteria (Auto) None Seen (None Seen)
[2023-10-07] MEDS ORDERED: ACETAMINOPHEN 325 MG TAB PO PRN (15:23)
[2023-10-07] MEDS: OPTIRAY 320 125ml IV ONE (15:40)
--- NOTE | 2023-10-07 16:07 | CT Scan Report ---
CT ANGIOGRAM OF THE BRAIN; CT ANGIOGRAM OF THE NECK CLINICAL HISTORY: Change in mental status. COMPARISON STUDY: Unenhanced CT of the brain performed the same day 10/07/2023. TECHNIQUE: Following the IV administration of 117 of Optiray 320, CT angiogram of the head and neck w as performed from the aortic arch to the vertex. Images are reviewed in the axial, sagittal, and kaela nal planes. 3-D MIPS images are created and assessed. IV contrast was administered without complicati on. All measurements were calculated based on NASCET criteria. A dose lowering technique was utilize d adhering to the principles of ALARA. CT DOSE: 349.26 mGy.cm FINDINGS: Brain parenchyma: There is age related involutional change noting advanced confluent subcortical and periventricular microangiopathic disease. There is no evidence of hemorrhage, mass effect, or acute t erritorial ischemia noting angiographic phase technique. There is no evidence of enhancing mass lesio n on the angiogram phase images. The ventricles, sulci, and cisterns are prominent secondary to invol utional change. Latif-white matter differentiation is preserved. No extra-axial fluid collection is se en. Thoracic aorta: There is atherosclerotic calcification of the thoracic aorta. Visualized portions of the thoracic aorta are normal in caliber. The aortic arch demonstrates standard 3-vessel anatomy. Right carotid arterial system: The right common carotid artery is widely patent, as are the right int ernal and external carotid arteries. Mild calcified plaque is seen in the carotid bulb. The internal carotid artery demonstrates a beaded appearance suggesting fibromuscular dysplasia. Left carotid arterial system: The left common carotid artery is widely patent, as are the left internal grinder al and external carotid arteries. Mild calcified plaque is noted in the carotid bulb. The internal ca rotid artery demonstrates a beaded appearance suggesting fibromuscular dysplasia. Vertebral arteries: Widely patent bilaterally noting left-sided dominance. Subclavian arteries: Widely patent bilaterally. Intracranial vasculature: There is atherosclerotic calcification of the cavernous carotid arteries. T he internal carotid arteries are patent at the skull base, as are the anterior and middle cerebral ar teries bilaterally. The vertebrobasilar system and posterior cerebral arteries are widely patent. The basilar artery is diminutive. There is origin of the left posterior cerebral artery. A large p osterior communicating artery is seen on the right. The left vertebral artery is dominant. There is n o aneurysm, high-grade stenosis, or focal vessel cut off seen throughout the intracranial circulation . Jugular veins: Patent bilaterally. Dural sinuses: Patent. Lung apices: Foci of parenchymal scarring are seen in the upper lobes. Scattered right upper lobe pul monary nodules measure up to 7 mm. These may be inflammatory. Soft tissues: The visualized pharyngeal soft tissues are normal in appearance noting angiographic ph ase technique. The oropharyngeal airway appears widely patent. The left lobe of the thyroid gland is mildly enlarged. The thyroid is heterogeneous. The salivary glands are normal in appearance. No cervi gregorio lymphadenopathy is seen. Skeletal structures: The skeletal structures are osteopenic. The calvarium appears intact. The cervic al spine is maintained noting multilevel spondylosis. Orbits: The bony orbits are intact. Orbital contents are normal as visualized noting bilateral ocular lens implants. Sinuses and mastoids: The left maxillary sinus is diminutive and partially opacified. The remaining p aranasal sinuses are clear. The mastoid air cells are well pneumatized. IMPRESSION: 1. There is no evidence of hemorrhage, mass effect, or acute territorial ischemia noting angiographic phase technique. 2. Unremarkable CT angiogram of the brain. 3. The internal carotid arteries demonstrate beaded appearance bilaterally suggesting fibromuscular d ysplasia. 4. Otherwise unremarkable CT angiogram of the neck. The neck vessels are widely patent. 5. There are scattered subcentimeter right upper lobe nodular opacities which may be inflammatory. Th aquilino are not highly suspicious. Correlate clinically. ACT 112: Negative or not required by law. Electronically signed by: Jamie Noel M.D. 10/07/2023 4:06 PM
--- NOTE | 2023-10-07 16:13 | Electrocardiogram Report ---
Test Reason : Blood Pressure : / mmHG Vent. Rate : 074 BPM Atrial Rate : 074 BPM P-R Int : 186 ms QRS Dur : 092 ms QT Int : 362 ms P-R-T Axes : 075 034 064 degrees QTc Int : 401 ms Normal sinus rhythm Minimal voltage criteria for LVH, may be normal variant ( Eber product ) Borderline ECG When compared with ECG of 04-FEB-2022 05:32, Nonspecific T wave abnormality no longer evident in Lateral leads Confirmed by Theodore Coelho ([id number]) on 10/07/2023 4:12:48 PM Referred By: Confirmed By:Theodore Coelho
[2023-10-07] MEDS ORDERED: Heparin IV Adult Wt-Based Low-Dose *NO* INITIAL Bolus Protocol IV SCH (16:45)
[2023-10-07] MEDS: GADOBUTROL 65ML VIAL IV ONE (17:19)
--- NOTE | 2023-10-07 17:32 | Magnetic Resonance Report ---
Brain MRI WITH AND WITHOUT CONTRAST HISTORY: confusion TECHNIQUE: Multiplanar multisequence MRI of the brain was performed both before and after the intrave nous administration of contrast. COMPARISON STUDY: Head CT 10/07/2023. FINDINGS: There is a single punctate focus of restricted diffusion within the right posterior frontal lobe near the high convexity. This is consistent with a small acute infarct. The midline structures are intact. Patchy periventricular white matter T2 hyperintensity is nonspecific but favors advanced microvascular ischemic change given the patient's age. Prior bilateral lens replacement. Hypoplastic left maxillary sinus. The mastoid air cells are clear. The major vascular flow-voids at the skull bas e are maintained. The ventricles and sulci demonstrate mild age-related involutional changes. There i s no mass, hematoma, or midline shift. No abnormal enhancement. IMPRESSION: 1. A punctate acute infarct within the right posterior frontal lobe. 2. Advanced microvascular ischemic changes. ACT 112: Negative or not required by law. Electronically signed by: Dane Pedro M.D. 10/07/2023 5:30 PM
[2023-10-07] MEDS: Heparin IV Adult Wt-Based Low-Dose *NO* INITIAL Bolus Protocol IV STA (17:53)
[2023-10-07] MEDS: HEPARIN SODIUM/DEXTROSE 25,000 UNITS/500 ML BAG IV SCH (17:53)
[2023-10-07] MEDS: METOPROLOL SUCC 25MG EXT REL TAB PO SCH (19:46)
[2023-10-07] MEDS: ATORVASTATIN 40 MG TAB PO SCH (19:46)
[2023-10-07] MEDS ORDERED: ATORVASTATIN 10 MG TAB PO SCH (21:00)
[2023-10-08 01:06] LABS: ANTI-Xa, UFH(UnfractionatedHep 0.24 IU/ml (0.3-0.7)
--- OUTSIDE RECORDS SUMMARY | 2023-10-08 04:59 | External Medical Summary | Summary of Care ---
Author Name Unknown Organization [facility] Address [address] [place] [address] Phone [phone] Care Team Providers Care Tube Drawing Supervisor Name Role Phone Roseanne Horowitz MD Primary Care Provider [phone] Reason for Visit * Reason Onset Date Comments Medication Administration prolia Medication Administration 05/15/2023 Prolia Encounter Details Date Type Department Care Team (Late st Contact Info) Description 05/15/2023 10:30 AM EST Nurse Only Rheumatology [place] [id number] [facility] [place] [address] Pf, Nurse Rheum [address] [place] [address] [place] [address] Medication Administration (prolia); Medica... Allergies Active Allergy Reactions Criticality Noted Date Comments Latex 10/05/2018 Lisinopril Cough 01/10/2009 documented as of this encounter (statuses as of 05/15/2023) Medications Medication Sig Dispensed Refills Start Date End Date Status MULTIVITAMINS PO TABS one tablet by mouth daily 0 Active timolol (TIMOPTIC) 0.5 % ophthalmic solution 3 07/26/2015 Active Acetaminophen 325 MG Oral Tablet Take 1 Tablet by mouth every 6 hours as needed. 0 Active Furosemide 20 MG Oral Tablet (Lasix)Indications:M itral valve prolapse,Pulmonary hypertension (HCC),Non-rheumatic tricuspid valve insufficiency,Edema, unspecified type Take 1 tablet in the morning and 1 tablet in the afternoon. May take an additional tablet as needed for increased swelling 200 Tablet 3 05/14/2022 Active Aspirin EC 81 MG Oral Tablet Delayed ReleaseIndications:A symptomatic bilateral carotid artery stenosis Take 1 Tablet (81 mg) by mouth in the morning. 90 Tablet 3 05/22/2022 Active T.E.D. Knee Length/S-Regular Wear during the day. Remove at night 2 Each 0 07/29/2022 Active Atorvastatin Calcium 10 MG Oral Tablet (Lipitor)Indications :Dyslipidemia, goal LDL below 100,Dyslipidemia, goal LDL below 70 TAKE 1 TABLET BY MOUTH EVERY DAY 90 Tablet 3 02/04/2023 Active Metoprolol Succinate ER 25 MG Oral Tablet Extended Release 24 Hour (toPROL XL)Indications:Palpi tations,SVT (supraventricular tachycardia) TAKE 1/2 TABLET BY MOUTH EVERY MORNING 45 Tablet 3 03/10/2023 Active documented as of this encounter (statuses as of 05/15/2023) Active Problems Problem Noted Date Diagnosed Date Peripheral venous insufficiency 07/29/2022 Chronic kidney disease, stage 3a 11/21/2020 Overview: Per CKD protocol Prediabetes 12/14/2018 Overview: Per Prediabetes protocol Pulmonary hypertension 02/02/2018 Moderate tricuspid regurgitation 09/09/2016 LORA (dyspnea on exertion) 08/21/2015 Primary osteoarthritis of both hands 10/26/2014 History of nonmelanoma skin cancer 10/26/2013 Nontoxic uninodular goiter 05/09/2010 Asymptomatic bilateral carotid artery stenosis 1 Dyslipidemia, goal LDL below 70 05/25/2009 Overview: Per Lipid Taxonomy. 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 Follow up study needed 07/2009 Carotid Stenosis, non-symptomatic 05/18/2007 11/24/2008 Overview: Modified per Carotid Stenosis protocol #10 PURE HYPERCHOLESTEROLEM 07/03/200605/09 Overview: Per Lipid Taxonomy. documented as of this encounter (statuses as of 05/15/2023) Immunizations Name Administration Dates Next Due COVID-19 mRNA, LNP-s, No Pre serve, 2-Dose Series (Moderna) 08/10/2020,07/13/2020 COVID-19, mRNA, LNP-s, PF, B ooster, 100mcg/0.5mg (Moderna) 05/07/2021 Pneumococcal Conjugate Vacc, 13 Valent (Prevnar) 11/28/2015 Pneumococcal Polysaccharide PPV23 (Pneumovax) 06/09/2003 SEASONAL INFLUENZA, PF, 6 M & Above, IM , (FLULAVAL or FLUZONE) 04/09/2017 Seasonal Influenza, Quadriva lent Hd (Fluzone Hd) 02/07/2022,05/07/2021 Seasonal Influenza, Quadriva lent Hd, 65+ Yrs 02/16/2020 Seasonal Influenza, Quadriva lent, No Preserve, IM 04/26/2015 Seasonal Influenza, Split, I IV3, With Preserve, Inj 03/27/2016,03/16/2014,04/02/2013,04/04,03/18/2011,03/09/2010,03/18/2009 ,04/09/2008,04/09/2006 Seasonal Influenza, Trivalen t, Adjuvanted, 65+ yrs 02/16/2020,05/03/2019 Seasonal Influenza, Trivalen t, High Dose, No Preserve, IM 02/26/2018 TDAP (age 10 and older)(Boostrix) 12/28/2014 Varicella Zoster Vaccine (Adult) 03/22/2011 Zoster Vaccine Recombinant (Shingrix) 05/19/2018 ,02/26/2018 documented as of this encounter Social History Tobacco Use Types Packs/Day Years Used Date Smoking Tobacco: Never Smokeless Tobacco: Never Tobacco Cessation:Counseling Given: Not Answered Alcohol Use Standard Drinks/Week Comments Yes 0 (1 standard drink = 0.6 oz pure alcohol) Small glass of wine on [place] PHQ-2 Answer Date Recorded PHQ Adult Total Score 2 02/07/2022 Hunger Vital Sign Answer Date Recorded Within the past 12 months, y ou worried that your food would run out before you got the money to buy more. Never true 02/08/20 22 Within the past 12 months, t he food you bought just didn't last and you didn't have money to get more. Never true 02/07/2022 Sex and Gender Information Value Date Recorded Sex Assigned at Female 09/24/2018 10:15 AM EDT Gender Identity Female 09/24/2018 10:15 AM EDT Sexual Orientation Not on file Job Start Date Occupation Industry Not on file Not on file Not on file documented as of this encounter Last Filed Vital Signs Vital Sign Reading Time Taken Comments Blood Pressure - - Pulse - - Temperature 36.9 C (98.4 F) 05/15/2023 11:[address] Respiratory Rate - - Oxygen Saturation - - Inhaled Oxygen Concentration - - Weight - - Height - - Body Mass Index - - documented in this encounter Progress Notes * Sara Dc LPN - 05/15/2023 11:49 AM EST Madeline Victor presents today for administration of Prolia. She understands the benefits and risks of this treatment. An educational pamphlet was given to the patient. Prolia 60 mg was administered subcutaneously. The patient tolerated the procedure without problems. She will return in 6 months for the next injection and evaluation. Sara Dc LPN documented in this encounter Nursing Notes * Sara cD LPN - 05/15/2023 11:49 AM EST Chief Complaint Patient presents with Medication Administration prolia documented in this encounter Plan of Treatment Upcoming Encounters Date Type Department Care Team (Late st Contact Info) Description 06/30/2023 1:00 PM EST Office Visit Cardiology, [facility] [address] [place] [address] Marielle Price PA-C [address] [place] [address] 11/18/2023 11:00 AM EDT Office Visit Rheumatology [facility] [address] [place] [address] Aroldo Stovall MD [email or web address] [place] [address] Health Maintenance Due Date Last Done Comments CKD HGB USE SMARTSET 68634 08/21/202208/21, 04/30/2019, 03/30/2018, Additional history exists CKD PHOS USE SMARTSET 19089 08/21/2022 08/21/2021, 0 07/06/2012 Albumin/Creatinine Ratio 01/30/2023 01/30/2022 COVID-19 Vaccine ( season) 2023 05/07/2021, 08/10/2020, 07/13/2020 Depression Screening 02/07/2023 02/07/2022 Influenza Vaccine (FLU shot) (#1) 2023 02/07/2022, 05/07/2021, 05/07/2021, Additional history exists HbA1c 02/14/2023 02/14/2022, 08/07, 11/29/2020, Additional history exists DXA Scan 07/22/2024 07/22/2022, 07/10, 07/17/2020, Additional history exists DTaP,Tdap,and Td Vaccines (2 - Td or Tdap) 12/28/2024 12/28/2014 Pneumococcal Vaccine: 65+ Years Completed 11/28/2015, 06/09/2003 Zoster Vaccines Completed 05/19/2018, 02/08, 03/22/2011 VITAMIN D LEVEL ONCE IN A LIFETIME-USE SMARTSET# 05461 Completed 05/12/2023, 02/27/2022, 10/15/2021, Additional history exists GARDASIL-HPV IMMUNIZATION SERIES Aged Out No longer eligible based on patient's age to complete this topic Hepatitis B Aged Out No longer eligi ble based on patient's age to complete this topic MENINGOCOCCAL (MENACTRA/MENVEO) Aged Out No longer eligible based on patient's age to complete this topic documented as of this encounter Medical Devices Not on filedocumented as of this encounter Visit Diagnoses Diagnosis Senile osteoporosis- Primary documented in this encounter Administered Medications Inactive Administered Medications - up to 3 most recent administrations Medication Order MAR Action Action Date Dose Rate Site Denosumab (Prolia) subcut inj 60 mg 60 mg, Subcutaneous, ONCE, On Rosie 05/15/23 at 1030, For 1 dose Given 05/15/2023 11:55 AM EST 60 mg Arm Left Upper documented in this encounter Care Teams Tube Drawing Supervisor Relationship Specialty Start Date End Date Roseanne Horowitz MD [address] [facility] [place] [address] PCP - General 08/22/08 documented as of this encounter
--- OUTSIDE RECORDS SUMMARY | 2023-10-08 04:59 | External Medical Summary | Summary of Care ---
Author Name Unknown Organization [facility] Address [address] [place] [address] Phone [phone] Care Team Providers Care China Decorator Name Role Phone Roseanne Horowitz MD Primary Care Provider [phone] Reason for Visit * Reason Onset Date Comments Health Maintenance 07/01/2023 Encounter Details Date Type Department Care Team (Late st Contact Info) Description 07/01/2023 Telephone General Internal Medicine [facility] [place] [address] [facility] [place] [address] Rose[facility] [address] [facility] [address] Health Maintenance Allergies Active Allergy Reactions Criticality Noted Date Comments Latex 10/05/2018 Lisinopril Cough 01/10/2009 documented as of this encounter (statuses as of 07/01/2023) Medications Medication Sig Dispensed Refills Start Date End Date Status MULTIVITAMINS PO TABS one tablet by mouth daily 0 Active timolol (TIMOPTIC) 0.5 % ophthalmic solution 3 07/26/2015 Active Acetaminophen 325 MG Oral Tablet Take 1 Tablet by mouth every 6 hours as needed. 0 Active Aspirin EC 81 MG Oral Tablet [...] EVERY MORNING 45 Tablet 3 03/10/2023 Active Furosemide 20 MG Oral Tablet (Lasix)Indications:M itral valve prolapse,Pulmonary hypertension (HCC),Non-rheumatic tricuspid valve insufficiency,Edema, unspecified type TAKE 1 TABLET IN THE MORNING AND 1 TABLET IN THE AFTERNOON. MAY TAKE AN ADDITIONAL TABLET NEEDED FOR INCREASED SWELLING 200 Tablet 0 06/12/2023 Active documented as of this encounter (statuses as of 07/01/2023) Active Problems Problem Noted Date Diagnosed Date [...] as of this encounter (statuses as of 07/01/2023) Resolved Problems Problem Noted Date Diagnosed Date [...] as of this encounter (statuses as of 07/01/2023) Immunizations Name Administration Dates Next Due COVID-19 mRNA, LNP-s, No Pre serve, 2-Dose Series (Moderna) 08/10/2020,07/13/2020 COVID-19, mRNA, LNP-s, PF, B ooster, 100mcg/0.5mg (Moderna) 05/07/2021 Pneumococcal Conjugate Vacc, 13 Valent (Prevnar) 11/28/2015 Pneumococcal Polysaccharide PPV23 (Pneumovax) 06/09/2003 Seasonal Influenza, PF, 6 M & above, IM , (FluLaval or Fluzone) 04/09/2017 Seasonal Influenza, Quadriva lent Hd (Fluzone [...] Date Smoking Tobacco: Never Smokeless Tobacco: Never Alcohol Use Standard Drinks/Week Comments Yes 0 (1 standard drink = 0.6 oz pure alcohol) Small glass of wine on [place] and [place] PHQ-2 Answer Date Recorded PHQ Adult Total [...] on file documented as of this encounter Miscellaneous Notes * Telephone Encounter - Cate Reyes LPN - 07/01/2023 2:31 PM EST Care Gaps Comprehensive Care Outreach Last Office/Telemedicine Visit: 02/21/2022 (in office), Visit date not found (telemedicine) Next Office Visit: Visit date not found Hemoglobin AIC Results: Lab Results Component Value Date/Time HEMOGLOBIN A1C - [facility] 6.3 (H) 02/14/2022 09:28 AM HEMOGLOBIN A1C - [facility] 5.9 (H) 08/21/2021 07:59 AM HEMOGLOBIN A1C - [facility] 6.0 (H) 11/29/2020 07:37 AM HEMOGLOBIN A1C - [facility] 6.0 (H) 01/13/2020 08:22 AM HEMOGLOBIN A1C - [facility] 5.6 04/30/2019 09:23 AM HEMOGLOBIN A1C - [facility] 5.8 (H) 11/27/2018 09:10 AM Reviewed Health Maintenance below: Health Maintenance Topic Date Due CKD HGB USE SMARTSET 98128 08/21/2022 CKD PHOS USE SMARTSET 88769 08/21/2022 Albumin/Creatinine Ratio 01/30/2023 Influenza Vaccine (FLU shot) (1) 02/07/2023 Depression Screening 02/07/2023 COVID-19 Vaccine ( season) 2023 HbA1c 02/14/2023 Ov labs Care Gap Outreach Action Taken: Unable to reach message says not available unable to leave a vm documented in this encounter Plan of Treatment Upcoming Encounters Date Type Department Care Team (Late st Contact Info) Description 11/18/2023 11:00 AM EDT Office Visit Rheumatology [facility] [address] [place] [address] Aroldo Stovall MD [address] [place] [address] Health Maintenance Due Date Last Done Comments CKD HGB USE SMARTSET 93643 08/21/202208/21, 04/30/2019, 03/30/2018, Additional history exists CKD PHOS USE SMARTSET 76597 08/21/2022 08/21/2021, 0 07/06/2012 Albumin/Creatinine Ratio 01/30/2023 [...] D LEVEL ONCE IN A LIFETIME-USE SMARTSET# 27922 Completed 05/12/2023, 02/27/2022, 10/15/2021, Additional history exists [...] Not on filedocumented as of this encounter Care Teams China Decorator Relationship Specialty Start Date End Date Roseanne Horowitz MD [address] [place] [address] PCP - General 08/22/08 documented as of this encounter
--- OUTSIDE RECORDS SUMMARY | 2023-10-08 04:59 | External Medical Summary | Summary of Care ---
Author Name Unknown Organization [facility] Address [address] [place] [address] Phone [phone] Care Team Providers Care Geochemistry Teacher Name Role Phone Roseanne Horowitz MD Primary Care Provider [phone] Reason for Visit * Reason Onset Date Comments Medication Question 05/12/2023 Prolia - lab s Encounter Details Date Type Department Care Team (Late st Contact Info) Description 05/12/2023 Telephone Rheumatology [place] [address] [address] [place] [address] Aroldo Stovall MD [address] [place] [address] Medication Question (Prolia - labs) Allergies Active Allergy Reactions Criticality Noted Date [...] pure alcohol) Small glass of wine on [place] and [place] PHQ-2 Answer Date Recorded PHQ [...] encounter Miscellaneous Notes * Telephone Encounter - Aziza Dc LPN - 05/15/2023 11:52 AM EST Labs done Prolia given on 05/15 * Telephone Encounter - Sara Dc LPN - 05/12/2023 3:41 PM EST [10:36 AM] Wilman Aguiar, Aroldo Chaves. ask her if she is taking vit D? If she is taking vitamin-D in the same dose as she was last year, we can give her Prolia. If no vitamin-D would need update labs 1st And then reschedule her with the nurses for Prolia. Pt is currently not taking any Vit D supplements. Pt will get lab work done today. * Telephone Encounter - Sara Dc LPN - 05/12/2023 9:24 AM EST Pt has an appt to get prolia today. Was unable to reach pt to update her lab work last week. Spoke to her [employer] salesperson Jose Luis and he stated he would try to contact pt to get work done onFriday. No new results seen. Can pt get prolia today based off last lab results? Thank you! documented in this encounter Plan of Treatment Upcoming Encounters Date Type Department Care Team (Late st Contact Info) Description 06/30/2023 1:00 PM EST Office Visit Cardiology, [facility] [address] [place] [address] Marielle Price PA-C [address] [place] [address] 11/18/2023 11:00 AM EDT Office Visit Rheumatology [facility] [address] [place] [address] Aroldo Stovall MD [address] [place] [address] Health Maintenance Due Date Last Done Comments CKD HGB USE SMARTSET 93151 08/21/202208/21, 04/30/2019, 03/30/2018, Additional history exists CKD PHOS USE SMARTSET 89797 08/21/2022 08/21/2021, 0 07/06/2012 Albumin/Creatinine Ratio 01/30/2023 [...] D LEVEL ONCE IN A LIFETIME-USE SMARTSET# 41908 Completed 05/12/2023, 02/27/2022, 10/15/2021, Additional history exists [...] filedocumented as of this encounter Care Teams Geochemistry Teacher Relationship Specialty Start Date End Date Roseanne Horowitz MD [address] [place] [address] PCP - General 08/22/08 documented as of this encounter
--- OUTSIDE RECORDS SUMMARY | 2023-10-08 04:59 | External Medical Summary | Summary of Care ---
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 0 Active Aspirin EC 81 MG Oral Tablet Delayed ReleaseIndication s:Asymptomatic bilateral carotid artery stenosis Take 1 Tablet (81 mg) by mouth in the morning. 90 Tablet 3 05/22/2022 Active T.E.D. Knee Length/S-Regular Wear during the day. Remove at night 2 Each 0 07/29/2022 Active Atorvastatin Calcium 10 MG Oral Tablet (Lipitor)Indicati ons:Dyslipidemia, goal LDL below 100,Dyslipidemia, goal LDL below 70 TAKE 1 TABLET BY MOUTH EVERY DAY 90 Tablet 3 02/04/2023 Active Metoprolol Succinate ER 25 MG Oral Tablet Extended Release 24 Hour (toPROL XL)Indications:Pa lpitations,SVT (supraventricular tachycardia) TAKE 1/2 TABLET BY MOUTH EVERY MORNING 45 Tablet 3 03/10/2023 Active Furosemide 20 MG Oral Tablet (Lasix)Indication s:Mitral valve prolapse,Pulmonar y hypertension (HCC),Non-rheumat ic tricuspid valve insufficiency,Sameer ma, unspecified type TAKE 1 TABLET IN THE MORNING AND 1 TABLET IN THE AFTERNOON. MAY TAKE AN ADDITIONAL TABLET NEEDED FOR INCREASED SWELLING 200 Tablet 0 06/12/2023 Active Furosemide 20 MG Oral Tablet (Lasix)Indication s:Mitral valve prolapse,Pulmonar y hypertension (HCC),Non-rheumat ic tricuspid valve insufficiency,Sameer ma, unspecified type Take 1 tablet in the morning and 1 tablet in the afternoon. May take an additional tablet as needed for increased swelling 200 Tablet 3 05/14/2022 Discontinued documented as of this encounter (statuses as of 06/12/2023) Active Problems Problem Noted Date Diagnosed Date [...] as of this encounter (statuses as of 06/12/2023) Resolved Problems Problem Noted Date Diagnosed Date [...] as of this encounter (statuses as of 06/12/2023) Immunizations Name Administration Dates Next Due COVID-19 [...] pure alcohol) Small glass of wine on [place] and [facility] PHQ-2 Answer Date Recorded PHQ Adult Total [...] encounter Miscellaneous Notes * Telephone Encounter - Iliana Beltran RP - 06/12/2023 1:01 PM EST Signed Prescriptions: Disp Refills Furosemide 20 MG Oral Tablet (Lasix) 200 Ta*0 Sig: TAKE 1 TABLET IN THE MORNING AND 1 TABLET IN THE AFTERNOON. MAY TAKE AN ADDITIONAL TABLET NEEDED FOR INCREASED SWELLINGAuthorizing Provider: PEREZ POST User: ILIANA BELTRAN * Telephone Encounter - Iliana Beltran RPh - 06/12/2023 1:00 PM EST Pt needs updated Mg, order placed 90 day supply with 0 refills Iliana Beltran Pharm D Clinical Pharmacist Cardiology 06/12/2023,1:00 PM * Telephone Encounter - Mitul E-Rx Ss Inbound - 06/12/2023 11:25 AM EST Pending Prescriptions: Disp Refills Furosemide 20 MG Oral Tablet [Pharmacy Med*180 Ta*4 Sig: Take 1 tablet in the morning and 1 tablet in the afternoon. May take an additional tablet as needed for increased swelling * Telephone Encounter - Kirsten Schultz LPN - 06/11/2023 9:47 AM ESTPending Prescriptions: Disp Refills Furosemide 20 MG Oral Tablet [Pharmacy Med*180 Ta*4 Sig: Take 1 tablet in the morning and 1 tablet in the afternoon. May take an additional tablet as needed for increased swelling * Telephone Encounter - Kirsten Schultz LPN - 06/11/2023 9:47 AM EST Pending Prescriptions: Disp Refills Furosemide 20 MG Oral Tablet (Lasix) [Pha*180 Ta*4 Sig: TAKE 1 TABLET IN THE MORNING AND 1 TABLET IN THE AFTERNOON. MAY TAKE AN ADDITIONAL TABLET NEEDED FOR INCREASED SWELLING documented in this encounter Plan of Treatment Upcoming Encounters Date Type Department Care Team (Late st Contact Info) Description 11/18/2023 11:00 AM EDT Office Visit Rheumatology [address] [place] [address] Aroldo Stovall MD [address] [place] [address] Scheduled Orders Name Type Priority Associated Diagnoses Orde r Schedule MAGNESIUM Lab Routine Edema, unspecified type Expected: 06/13/2023, Expires: 06/12/2024 Health Maintenance Due Date Last Done Comments CKD HGB USE SMARTSET 06827 08/21/202208/21, 04/30/2019, 03/30/2018, Additional history exists CKD PHOS USE SMARTSET 36489 08/21/2022 08/21/2021, 0 07/06/2012 Albumin/Creatinine Ratio 01/30/2023 [...] D LEVEL ONCE IN A LIFETIME-USE SMARTSET# 82127 Completed 05/12/2023, 02/27/2022, 10/15/2021, Additional history exists [...] as of this encounter Visit Diagnoses Diagnosis 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
--- OUTSIDE RECORDS SUMMARY | 2023-10-08 04:59 | External Medical Summary | Summary of Care ---
Author Name Unknown Organization [facility] Address [address] [place] [address] Phone [phone] Care Team Providers Care Lacquer Spray Booth Operator Name Role Phone Roseanne Horowitz MD Primary Care Provider [phone] Reason for Visit * Reason Onset Date Comments Medication Question 05/12/2023 Prolia - lab s Encounter Details Date Type Department Care Team (Late st Contact Info) Description 05/12/2023 Telephone Rheumatology [place] [address] [employer] [place] [address] Aroldo Stovall MD [address] [place] [address] Medication Question (Prolia - labs) Allergies Active [...] pure alcohol) Small glass of wine on [place] and [place] PHQ-2 Answer Date Recorded PHQ [...] encounter Miscellaneous Notes * Telephone Encounter - Sara Dc LPN [...] work last week. Spoke to her Alternate personal driver Jose Luis and he stated he would try to contact pt to get work done onFriday. No new results seen. Can pt get prolia today based off last lab results? Thank you! documented in this encounter Plan of Treatment Upcoming Encounters Date Type Department Care Team (Late st Contact Info) Description 05/15/2023 10:30 AM EST Nurse Only Rheumatology [place] [id number] [facility] [place] [address] Pf, Nurse Rheum [facility] [place] [address] 06/30/2023 1:00 PM EST Office Visit Cardiology, [facility] [address] [place] [address] Marielle Price PA-C [address] [place] [address] 11/18/2023 11:00 AM EDT Office Visit Rheumatology [facility] [address] [place] [address] Aroldo Stovall MD [address] [employer] [place] [address] Health Maintenance Due Date Last Done Comments CKD HGB USE SMARTSET 14438 08/21/202208/21, 04/30/2019, 03/30/2018, Additional history exists CKD PHOS USE SMARTSET 50259 08/21/2022 08/21/2021, 0 07/06/2012 Albumin/Creatinine Ratio 01/30/2023 [...] D LEVEL ONCE IN A LIFETIME-USE SMARTSET# 99722 Completed 05/12/2023, 02/27/2022, 10/15/2021, Additional history exists [...] filedocumented as of this encounter Care Teams Lacquer Spray Booth Operator Relationship Specialty Start Date End Date Roseanne Horowitz MD [address] [place] [address] PCP - General 08/22/08 documented as of this encounter
--- OUTSIDE RECORDS SUMMARY | 2023-10-08 05:00 | External Medical Summary | Summary of Care ---
Author Name Unknown Organization [facility] Address [address] [place] [address] Phone [phone] Care Team Providers Care Brazing Machine Operator Automatic Name Role Phone Roseanne Horowitz MD Primary Care Provider [phone] Reason for Visit * Reason Onset Date Comments Order Request 05/14/2023 Prolia Encounter Details Date Type Department Care Team (Late st Contact Info) Description 05/14/2023 Telephone Rheumatology [place] [id number] [employer] [place] [address] [place] CRNP [address] [place] [address] Order Request (Prolia) Allergies Active Allergy Reactions Criticality Noted Date Comments Latex 10/05/2018 Lisinopril Cough 01/10/2009 documented as of this encounter (statuses as of 05/14/2023) Medications Medication Sig Dispensed Refills Start Date [...] EVERY MORNING 45 Tablet 3 03/10/2023 Active Hospital, Clinic, or Other Facility Administered Medication Ordered Dose Route Frequency Start Date End Date Status Denosumab (Prolia) subcut inj 60 mgIndications:Senile osteoporosis 60 mg SC ONCE 05/15/2023 05/15/2023 Active documented as of this encounter (statuses as of 05/14/2023) Active Problems Problem Noted Date Diagnosed Date [...] as of this encounter (statuses as of 05/14/2023) Resolved Problems Problem Noted Date Diagnosed Date [...] as of this encounter (statuses as of 05/14/2023) Immunizations Name Administration Dates Next Due COVID-19 [...] pure alcohol) Small glass of wine on [place] and [place] PHQ-2 Answer Date Recorded PHQ Adult Total [...] encounter Miscellaneous Notes * Telephone Encounter - Daniella Sarmiento OSA - 05/14/2023 10:50 AM EST scheduled * Telephone Encounter - Sara Dc LPN - 05/14/2023 10:12 AM EST Daniella: Can you please schedule Devorah Victor for a nurse visit 05/15/23 at 10:30, I called her and she knows about the appt. Thank you! Sun: Can you please sign the prolia? Labs are WNL Thank you! documented in this encounter Plan of Treatment Upcoming Encounters Date Type Department Care Team (Late st Contact Info) Description 05/15/2023 10:30 AM EST Nurse Only Rheumatology [facility] [address] [place] [address] Pf, Nurse Rheum [address] [place] [address] 06/30/2023 1:00 PM EST Office Visit Cardiology, [facility] [address] [facility] [place] [address] Marielle Price PA-C [address] [place] [address] 11/18/2023 11:00 AM EDT Office Visit Rheumatology [facility] [address] [place] [address] Aroldo Stovall MD [address] [place] [address] Health Maintenance Due Date Last Done Comments CKD HGB USE SMARTSET 35737 08/21/202208/21, 04/30/2019, 03/30/2018, Additional history exists CKD PHOS USE SMARTSET 63879 08/21/2022 08/21/2021, 0 07/06/2012 Albumin/Creatinine Ratio 01/30/2023 [...] D LEVEL ONCE IN A LIFETIME-USE SMARTSET# 26146 Completed 05/12/2023, 02/27/2022, 10/15/2021, Additional history exists [...] Senile osteoporosis- Primary documented in this encounter Care Teams Brazing Machine Operator Automatic Relationship Specialty Start Date End Date Roseanne Horowitz MD [address] [facility] [address] PCP - General 08/22/08 documented as of this encounter
--- OUTSIDE RECORDS SUMMARY | 2023-10-08 05:00 | External Medical Summary ---
Author Name Unknown Address Unknown Organization K0G:[facility] [address] - [address] [place] [address] Laboratory Report Ordering Provider Test Date Status RADHA,ALICIAIZZY 05/12/2023 11:43:19 Final Observation Date Value Abnormality Reference (Units ) Status BUN 05/12/2023 11:43:19 21 Above high normal 6-20 (mg/dL) Final Creatinine 05/12/2023 11:43:19 0.8 0.5-1.0 (mg/dL) Final Glomerular filtration rate/1.73 sq M.predicted [Volume Rate/Area] in Serum, Plasma or Blood by Creatinine-based formula (CKD-EPI) 05/12/2023 11:43:19 71 >=60 (mL/min) Final eGFR is calculated based on the CKD-EPI 2020 equation SODIUM 05/12/2023 11:43:19 140 135-146 (m mol/L) Final Potassium 05/12/2023 11:43:19 4.2 3.5-5.1 (m mol/L) Final Cl 05/12/2023 11:43:19 102 98-107 (mm ol/L) Final CO2 05/12/2023 11:43:19 28 22-32 (mmo l/L) Final Anion gap 05/12/2023 11:43:19 10 7-15 (mmol /L) Final Glucose 05/12/2023 11:43:19 98 70-120 (mg /dL) Final Albumin 05/12/2023 11:43:19 4.3 3.8-5.0 (g /dL) Final AST (Aspartate aminotransferase) 05/12/2023 11:43:19 26 10-35 (U/L) Fin al Alk Phos 05/12/2023 11:43:19 93 35-130 (U/ L) Final Bilirubin, Total 05/12/2023 11:43:19 0.6 <=1 .2 (mg/dL) Final Calcium 05/12/2023 11:43:19 10.6 Above high normal 8. 4-10.2 (mg/dL) Final Protein 05/12/2023 11:43:19 7.2 6.0-8.3 (g /dL) Final ALT (Alanine aminotransferase) 05/12/2023 11:43:19 23 10-35 (U/L) Rod bradley Performing Location [facility]-[address] 0 - [address] [facility] [address]
--- OUTSIDE RECORDS SUMMARY | 2023-10-08 05:00 | External Medical Summary | Summary of Care ---
Author Name Unknown Organization [facility] Address [address] [place] [address] Phone [phone] Care Team Providers Care Rn Observation Name Role Phone Roseanne Horowitz MD Primary Care Provider Reason for Visit * Reason Comments Outpatient Testing Encounter Details Date Type Department Care Team (Late st Contact Info) Description 05/12/2023 12:10 PM EST Laboratory Laboratory, [facility] [address] [place] [address] [facility] [address] [place] [address] Senile osteoporosis Allergies Active Allergy Reactions Criticality Noted Date [...] pure alcohol) Small glass of wine on [place] and [place] PHQ-2 Answer Date Recorded PHQ [...] on file documented as of this encounter Plan of Treatment Upcoming Encounters Date Type Department Care Team (Late st Contact Info) Description 05/15/2023 10:30 AM EST Nurse Only Rheumatology [address] [place] [address] Pf, Nurse Rheum [address] [place] [address] [place] [address] 06/30/2023 1:00 PM EST Office Visit Cardiology, [facility] [address] [place] [address] Marielle Price, PABj [address] [place] [address] 11/18/2023 11:00 AM EDT Office Visit Rheumatology [place] [address] [facility] [place] [address] Aroldo Stovall MD [address] [place] [address] [place] [address] Health Maintenance Due Date Last Done Comments CKD HGB USE SMARTSET 08965 08/21/202208/21, 04/30/2019, 03/30/2018, Additional history exists CKD PHOS USE SMARTSET 52266 08/21/2022 08/21/2021, 0 07/06/2012 Albumin/Creatinine Ratio 01/30/2023 [...] D LEVEL ONCE IN A LIFETIME-USE SMARTSET# 78590 Completed 05/12/2023, 02/27/2022, 10/15/2021, Additional history exists [...] Not on filedocumented as of this encounter Procedures Procedure Name Priority Date/Time Associated Diagnosis Comments 25-HYDROXY VITAMIN D Routine 05/12/2023 11:43 AM EST Senile osteoporosis COMPREHENSIVE METABOLIC PANEL Routine 05/12/2023 11:43 AM EST Senile osteoporosis documented in this encounter Results * (ABNORMAL) COMPREHENSIVE METABOLIC PANEL (05/12/2023 11:43 AM EST) BUN 21(H) 6 - 20 mg/dL 05/12/2023 1:03 PM EST [facility] [place] [facility]10 Creatinine 0.8 0.5 - 1.0 mg/dL 05/12/2023 1:03 PM EST [facility] [place] [facility]10 Estimated Glomerular Filtration Rate 71 >=60 mL/min 05/12/2023 1:03 PM EST [facility] [place] 57[facility]10 Comment:eGFR is calculated b ased on the CKD-EPI 2020 equation Sodium 140 135 - 146 mmol/L 05/12/2023 1:03 PM EST [facility] [place] 57[facility]10 Potassium 4.2 3.5 - 5.1 mmol/L 05/12/2023 1:03 PM EST [facility] [place] 57[facility]10 Chloride 102 98 - 107 mmol/L 05/12/2023 1:03 PM EST [facility] [place] 57[facility]10 CO2 28 22 - 32 mmol/L 05/12/2023 1:03 PM EST [facility] [place] 57[facility]10 Anion Gap 10 7 - 15 mmol/L 05/12/2023 1:03 PM EST [facility] [place] 57[facility]10 Glucose 98 70 - 120 mg/dL 05/12/2023 1:03 PM EST [facility] [place] 57[facility]10 Albumin 4.3 3.8 - 5.0 g/dL 05/12/2023 1:03 PM EST [facility] [place] 57[facility]10 AST 26 10 - 35 U/L 05/12/2023 1:03 PM EST [facility] [place] 57[facility]10 Alkaline Phosphatase 93 35 - 130 U/L 05/12/2023 1:03 PM EST [facility] [place] 57[facility]10 Bilirubin, Total 0.6 <=1.2 mg/dL 05/12/2023 1:03 PM EST [facility] [place] 57[facility]10 Calcium 10.6(H) 8.4 - 10.2 mg/dL 05/12/2023 1:03 PM EST [facility] [place] 57[facility]10 Protein 7.2 6.0 - 8.3 g/dL 05/12/2023 1:03 PM EST [facility] [place] [facility]10 ALT 23 10 - 35 U/L 05/12/2023 1:03 PM EST [facility] [place] [facility]10 Blood Venous blood specimen / Unknown Venipuncture / Unknown 05/12/2023 11:43 AM EST 05/12/2023 11:43 AM EST Aroldo Stovall MD LAB BLOOD ORDERABLE S [facility] [place] [facility]10 [address] [facility] [place] [address] * 25-HYDROXY VITAMIN D (05/12/2023 11:43 AM EST) 25-Hydroxy Vitamin D 31 >19 ng/mL 05/12/2023 8:13 PM EST [facility] Blood Venous blood specimen / Unknown Venipuncture / Unknown 05/12/2023 11:43 AM EST 05/12/2023 11:43 AM EST Narrative [facility] - 05/12/2023 8:13 PM EST Deficient: <20 ng/mL Insufficient: 20-29 ng/mL Recommended/Optimum:30-50 ng/mL Vitamin D intoxication is rare. If suspicious of Vitamin D toxicity, evaluation of serum Calcium and PTH is recommended. Aroldo Stovall MD LAB BLOOD ORDERABLE S [facility] [address] [place] [address] documented in this encounter Visit Diagnoses Diagnosis Senile osteoporosis documented in this encounter Care Teams Rn Observation Relationship Specialty Start Date End Date Roseanne Horowitz MD [address] [facility] [place] [address] PCP - General 08/22/08 documented as of this encounter
--- OUTSIDE RECORDS SUMMARY | 2023-10-08 05:00 | External Medical Summary | Summary of Care ---
Author Name Unknown Organization [facility] Address [address] [place] [address] Phone [phone] Care Team Providers Care Dentistry Teacher Name Role Phone Roseanne Horowitz MD Primary Care Provider [phone] Reason for Visit * Reason Onset Date Comments Advice 05/09/2023 Labs for Prolia appt 12.4.23 Encounter Details Date Type Department Care Team (Late st Contact Info) Description 05/09/2023 Telephone Rheumatology [place] [id number] [place] [address] Aroldo Stovall MD [facility] [place] [address] Advice (Labs for Prolia appt 12.4.23) Allergies Active Allergy Reactions Criticality Noted Date Comments Latex 10/05/2018 Lisinopril Cough 01/10/2009 documented as of this encounter (statuses as of 05/09/2023) Medications Medication Sig Dispensed Refills Start Date [...] as of this encounter (statuses as of 05/09/2023) Active Problems Problem Noted Date Diagnosed Date [...] as of this encounter (statuses as of 05/09/2023) Resolved Problems Problem Noted Date Diagnosed Date [...] as of this encounter (statuses as of 05/09/2023) Immunizations Name Administration Dates Next Due COVID-19 [...] pure alcohol) Small glass of wine on [place] and [place] PHQ-2 Answer Date Recorded PHQ [...] Telephone Encounter - Aziza Dc LPN - 05/09/2023 2:09 PM EST Pt aware that she needs to have her labs done today if she wants to get her Prolia on Friday. If she cannot get them today then we can just change her nurse appointment for a couple days after she can get her labs done. * Telephone Encounter - Izabel Salmeron OSA - 05/09/2023 1:31 PM EST [place] - Patient Related Communication Reason for Call: Lab order request - last visit w/physician (Physician): pt called to speak to nurses in regards to her appt on 05.12.23 for Prolia. Pt noted she was informed to have blood work prior to appt. She is not able to do so since she is out of town. Asking for a nurse to call her back today please about her appt on friday JESSIE Rabago documented in this encounter Plan of Treatment Upcoming Encounters Date Type Department Care Team (Late st Contact Info) Description 05/12/2023 10:30 AM EST Nurse Only Rheumatology [facility] [address] [place] [address] Pf, Nurse Rheum [address] [facility] [place] [address] 06/30/2023 1:00 PM EST Office Visit Cardiology, [facility] [address] [place] [address] Marielle Price, TYLER [address] [place] [address] Health Maintenance Due Date Last Done Comments CKD HGB USE SMARTSET 89109 08/21/202208/21, 04/30/2019, 03/30/2018, Additional history exists CKD PHOS USE SMARTSET 33691 08/21/2022 08/21/2021, 0 07/06/2012 Albumin/Creatinine Ratio 01/30/2023 [...] D LEVEL ONCE IN A LIFETIME-USE SMARTSET# 36351 Completed 02/27/2022, 10/15/2021, 10/25/2020, Additional history exists GARDASIL-HPV IMMUNIZATION SERIES Aged [...] filedocumented as of this encounter Care Teams Dentistry Teacher Relationship Specialty Start Date End Date Roseanne Horowitz MD [address] [facility] [place] [place] [address] PCP - General 08/22/08 documented as of this encounter
--- OUTSIDE RECORDS SUMMARY | 2023-10-08 05:00 | External Medical Summary | Summary of Care ---
Author Name Unknown Organization [facility] Address [address] [place] [address] Phone [phone] Care Team Providers Care Senior Financial Reporting Analyst Name Role Phone Roseanne Horowitz MD Primary Care Provider [phone] Reason for Visit * Reason Comments Outpatient Testing Encounter Details Date Type Department Care Team (Late st Contact Info) Description 05/12/2023 12:10 PM EST Laboratory Laboratory, [facility] [address] [place] [address] [facility] [address] [place] [address] Senile osteoporosis Allergies Active Allergy Reactions Criticality Noted Date Comments Latex 10/05/2018 Lisinopril Cough 01/10/2009 documented as of this encounter (statuses as of 05/12/2023) Medications Medication Sig Dispensed Refills Start Date [...] as of this encounter (statuses as of 05/12/2023) Active Problems Problem Noted Date Diagnosed Date [...] as of this encounter (statuses as of 05/12/2023) Resolved Problems Problem Noted Date Diagnosed Date [...] as of this encounter (statuses as of 05/12/2023) Immunizations Name Administration Dates Next Due COVID-19 [...] pure alcohol) Small glass of wine on [place] and [place] PHQ-2 Answer Date Recorded PHQ [...] 06/30/2023 1:00 PM EST Office Visit Cardiology, [facility] [address] [place] [address] Marielle Price, PABj [address] [place] [address] 11/18/2023 11:00 AM EDT Office Visit Rheumatology [facility] [address] [place] [address] Aroldo Stovall MD [address] [place] [address] Pending Results Name Type Priority Associated Diagnoses Date /Time 25-HYDROXY VITAMIN D Lab Routine Senile osteoporosis 05/12/2023 11:43 AM EST COMPREHENSIVE METABOLIC PANEL Lab Routine Senile osteoporosis 05/12/2023 11:43 AM EST Health Maintenance Due Date Last Done Comments CKD HGB USE SMARTSET 86896 08/21/202208/21, 04/30/2019, 03/30/2018, Additional history exists CKD PHOS USE SMARTSET 87808 08/21/2022 08/21/2021, 0 07/06/2012 Albumin/Creatinine Ratio 01/30/2023 [...] D LEVEL ONCE IN A LIFETIME-USE SMARTSET# 62759 Completed 02/27/2022, 10/15/2021, 10/25/2020, Additional history exists [...] of this encounter Visit Diagnoses Diagnosis Senile osteoporosis documented in this encounter Care Teams Senior Financial Reporting Analyst Relationship Specialty Start Date End Date Roseanne Horowitz MD [address] [place] [address] PCP - General 08/22/08 documented as of this encounter
--- OUTSIDE RECORDS SUMMARY | 2023-10-08 05:00 | External Medical Summary ---
Author Name Unknown Address Unknown Organization K01:LABORATORY [facility] - [address] [place] [address] Laboratory Report Ordering Provider Test Date Status KELLY GARCIA 05/12/2023 11:43:19 Final Deficient: <20 ng/mL
Ins ufficient: 20-29 ng/mL
Recommended/Optimum:30-50 ng/mL

Vitamin D intoxication is rare. If suspicious of Vitamin D toxicity, evaluation of serum Calcium and PTH is recommended. Observation Date Value Abnormality Reference (Units ) Status 25-OH Vitamin D total 05/12/2023 11:43:19 31 >19 (ng/mL) Final Performing Location LAB[facility]ATORY [facility] - [address] [place] [address]
--- NOTE | 2023-10-08 06:44 | CT Scan Report ---
CT SCAN OF THE BRAIN WITHOUT IV CONTRAST CLINICAL HISTORY: Follow-up stroke. COMPARISON STUDY: CT an MRI of the brain dated 10/07/2023. TECHNIQUE: Unenhanced axial CT scan of the brain is performed from the vertex to the skull base. A do se lowering technique was utilized adhering to the principles of ALARA. 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 There is no hemorrhage, mass effect, or evidence of acute t erritorial ischemia by CT criteria. Latif-white matter differentiation is preserved. No extra-axial fl uid collection is seen. Ventricles, sulci, cisterns: Prominent secondary to involutional change. Intracranial vasculature: There is atherosclerotic calcification of the cavernous carotid arteries. Calvarium: Unremarkable. Sinuses and mastoids: The visualized paranasal sinuses are clear. The mastoid air cells are well pneu matized. Orbits: The bony orbits are grossly intact. There are bilateral ocular lens implants. IMPRESSION: There is no hemorrhage, mass effect, or evidence of acute territorial ischemia by CT crit eria. The punctate lacunar infarct in the posterior right frontal lobe white matter seen by MRI is no t apparent on CT. ACT 112: Negative or not required by law. Electronically signed by: Jamie Noel M.D. 10/08/2023 6:43 AM
[2023-10-08 07:09] LABS: Hematocrit (blood only) 36.6 % (37.0-47.0); Hemoglobin 11.9 g/dl (12.0-16.0); Mean Corpuscular Hemoglobin 31.2 pg (25.0-34.0); Mean Corpuscular Hgb Conc 32.5 g/dL (32.0-36.0); Mean Corpuscular Volume 95.8 fL (80.0-100.0); Mean Platelet Volume 10.2 fL (9.4-12.4); Platelet Count 168 K/uL (130-400); RDW Coefficient of Variation 13.1 % (11.5-14.5); RDW Standard Deviation 46.5 fL (36.4-46.3); Red Blood Count 3.82 M/uL (4.20-5.40); White Blood Count 6.93 K/ul (4.8-10.8)
[2023-10-08 07:27] LABS: Albumin Globulin Ratio 1.4 (0.9-2); Albumin Level 3.6 gm/dl (3.4-5.0); BUN Creatinine Ratio 24.7 (10-20); Bilirubin,Total 0.4 mg/dl (0.2-1.0); Calcium 8.9 mg/dl (8.6-10.3); Chol HDL Ratio 2.6 (0-5); Creatinine Clr Calc Pharmacy 43.1 ml/min; Est GFR (African American) 85.2 ml/min; Est GFR (Non-African American) 73.5 ml/min; Globulin 2.5 gm/dl (2.5-4.0); Magnesium 1.9 mg/dl (1.7-2.4); Phosphorus 3.8 mg/dl (2.5-4.9); Total Protein 6.1 gm/dl (6.0-8.3)
[2023-10-08 07:30] LABS: ANTI-Xa, UFH(UnfractionatedHep 0.34 IU/ml (0.3-0.7)
[2023-10-08 08:19] LABS: Estimated Average Glucose 126 mg/dl
--- NOTE | 2023-10-08 08:28 | Cardiology Consultation ---
Date of Consultation October 08, 2023 Assessment & Plan (1) CVA (cerebral vascular accident): (2) Atrial flutter: (3) Mitral valve prolapse: (4) Hypertension: (5) Carotid stenosis, bilateral: Plan Patient admitted for weakness/dizziness and diagnosed with acute CVA per brain MRI in the posterior right frontal lobe. She was incidentally found to have probable atrial flutter while in the ER and then recurrent episode last evening, lasting several minutes. She was started on IV heparin for anticoagulation. repeat head CT was negative for hemorrhagic conversion this morning. Increase metoprolol succinate to 12.5 mg BID. If she has recurrent arrhythmias, consider amiodarone. [id number] score of 7 (female, age, HTN, CVA, vascular disease) and usp anticoagulation is indicated. Prior to discharge will plan to transition patient to Eliquis 2.5 mg BID (low dose based on age >80 and weight < 60 kg). Echocardiogram is pending with bubble study Will review when available. She does have history of moderate MVP and MR. Will review. Edema is well controlled. Diuretic on hold on admission. PT/OT recommended. Consider rehab. continue ASA and statin as well. Neuro consulted for other recommendations. Case discussed with Dr. Post I spent a total of 60 minutes on the date of service in preparation, delivery, and documentation of the care provided to this patient, excluding any time spent in the performance of separately billed services. Marielle Price PA-C Department of Cardiology, [facility] This chart was completed in part utilizing Speech Voice Recognition Software. Grammatical errors, random word insertions, pronoun errors, and incomplete sentences are an occasional consequence of this system due to software limitations, ambient noise, and hardware issues. Any formal questions or concerns about the content, text, or information contained within the body of this dictation should be directly addressed to the provider for clarification. Supervising Physician Co-Signing Physician Notes I have reviewed the advance practitioner's documentation, and I agree with, and take responsibility for the plan of care. I have personally performed a history and physical examination on the patient. 87-year-old female with paroxysmal atrial flutter and MRI evidence of small, acute cerebrovascular accident. Will add amiodarone for rhythm control. Continue IV heparin with transition to low-dose Eliquis, 2.5 mg twice daily, at time of discharge. Continue telemetry monitoring. Review echocardiogram when available. I spent a total of 25 minutes on the date of service in preparation, delivery, and documentation of the care provided to this patient, excluding any time spent in the performance of separately billed services. History of Present Illness Reason for Consultation: Dizziness; CVA; Atrial flutter Requesting Physician: Dr. Hurd Attending Physician: Paolo Toney MD History of Present Illness Patient is a 87 year old female known to [facility] Cardiology/Dr. Post. history includes: 1. Moderate MVP with moderate MR, moderate TR per last echo in January 2022 2. Mild b/l carotid stenosis (<50% stenosis b/l January 2023) 3. Dyslipidemia 4. Venous insufficiency 5. history of SVT and atrial/ventricular ectopy - on metoprolol Patient reported to the ER yesterday after having an episode of dizziness/syncope and weakness. She reports intermittent symptoms over the last 6 weeks. She had a "severe" episode on Friday where she was lightheaded and lowered herself to the ground and crawled to her bed. She did not seek help at this time. Similar occurrence yesterday. Family reported she "wasn't herself". They called cardiology office and RN triaged call and due to symptoms, ER was recommended. In the ER patient had an episode of tachycardia, consistent with likely atrial flutter in the 130's. Resolved spontaneously. Initial head CT was unremarkable. Brain MRI revealed acute infarct in the right posterior frontal lobe. Patient was started on IV heparin. She had repeat head CT scan this morning without evidence of bleed. Prior infarct noted on MRI was not evident on CT. She had one recurrent episode of tachycardia around 9:30 last evening lasting about 3 minutes and resolving spontaneously. She was asymptomatic. At time of consult, patient reports ongoing dizziness and difficult "focusing". She reports these are simialr symptoms to arrival to ER. No changes to her speech. No upper or lower extremity weakness. No chest pain or SOB. no orthopnea, PND or edema. No palpitations. Allergies Allergy/AdvReac Type Severity Reaction Status Date / Time latex Allergy Intermediate SWELLING Verified 10/27/18 08:03 blisters reddness lisinopril Allergy Mild Cough Verified 10/27/18 08:03 Home Medications Medication Instructions Recorded Confirmed Type atorvastatin 10 mg tablet 0 mg PO HS 10/01/18 10/07/23 History denosumab 60 mg/mL subcutaneous 1 dose subcut UD 10/01/18 10/07/23 History syringe (Prolia) furosemide 20 mg tablet 20 mg PO DAILY PRN swelling 10/01/18 10/07/23 History multivitamin 1 tab PO DAILY 10/01/18 10/07/23 History timolol 0.5 % eye drops 1 drp OPB QAM 10/01/18 10/07/23 History aspirin 81 mg tablet 81 mg PO DAILY 02/02/22 10/07/23 History metoprolol succinate 25 mg 0 mg PO UD 10/07/23 10/07/23 History tablet,extended release 24 hr Patient History Medical History Pulmonary HTN Chronic kidney disease STAGE 3 Osteoarthritis Glaucoma Mitral valve prolapse FOLLOWED BY DR. POST Hypertension Hyperlipidemia Surgical History History of left cataract surgery 10/13/18: was given 2mg of IV versed History of colonoscopy History of thyroidectomy, subtotal GOITER REMOVED ? DETAILS Family History Mother Family history of diabetes mellitus Father Heart disease Sister Pulmonary embolism Social History Smoking Status: Never smoker Second Hand Exposure: No; Do You Dip or Chew Tobacco: No; Hx Alcohol Use: Yes Alcohol type: wine Hx Substance Use: No Preferred Language: Divehi Communication Ability: Effective Deaf/Hard Of Hearing Specialist Required: No Beliefs That Will Affect Care: None marital status: Single Current Living Situation: Alone Other Information That Helps Us Care for You: No Feels Safe at Home: Yes Safety Concerns: Feels Safe At This Time Assistive Devices: Cane Review of Systems Review of Systems: All systems reviewed & are unremarkable except as noted in HPI & below Physical Exam Constitutional: WD/WN, vitals as above + frail appearing; no acute distress Neck: trachea midline, no thyromegaly Respiratory: normal respiratory effort Auscultation: lungs clear to auscultation bilaterally Cardiovascular: Rate/Rhythm: regular rate and regular rhythm Heart Sounds: + murmur (II/ systolic murmur) Vessels: no JVD Extremities: no edema Gastrointestinal (Abdomen): normal bowel sounds, soft, nontender, no hepatosplenomegaly Neurologic: PERRL, EOMI, accommodation nl, no face palsy, no dysarthria Psychiatric: A+Ox3, euthymic affect Results & Data Vital Signs (Past 12 Hours) Vital Signs Temp Pulse Pulse Resp BP BP Pulse Ox 10/08/23 08:18 36.6 C 57 L 17 119/76 95 10/08/23 07:14 72 10/08/23 02:30 36.7 C 66 18 129/64 96 10/07/23 22:37 36.4 C L 77 18 121/69 92 10/07/23 22:00 83 O2 Del Method 10/08/23 08:18 Room Air 10/08/23 07:14 10/08/23 02:30 Room Air 10/07/23 22:37 Room Air 10/07/23 22:00 Laboratory Results Cardiac Enzymes 10/07/23 10/08/23 Range/Units 12:00 06:42 AST 25 21 (13-39) U/L Troponin I High Sens 10.3 (0-14) pg/ml B-Natriuretic Peptide 242 H (0-100) pg/ml Coagulation 10/07/23 10/07/23 Range/Units 12:00 14:02 PT Cancelled 11.1 B-Natriuretic Peptide 242 H (0-100) pg/ml Lipids 10/08/23 Range/Units 06:42 Triglycerides 48 (0-150) mg/dl Cholesterol 138 (0-200) mg/dl HDL Cholesterol 54 mg/dl Cholesterol/HDL Ratio 2.6 (0-5) CBC 10/07/23 10/08/23 Range/Units 12:00 06:42 WBC 5.41 6.93 (4.8-10.8) K/ul RBC 4.14 L 3.82 L (4.20-5.40) M/uL Hgb 12.8 11.9 L (12.0-16.0) g/dl Hct 39.7 36.6 L (37.0-47.0) % Plt Count 166 168 (130-400) K/uL Neut # (Auto) 3.25 (1.40-6.50) K/uL Lymph # (Auto) 1.51 (1.20-3.40) K/uL Lamar # (Auto) 0.52 (0.11-0.59) K/uL Eos # (Auto) 0.10 (0.00-0.50) K/uL Baso # (Auto) 0.02 (0.00-0.20) K/uL Comprehensive Metabolic Panel 10/07/23 10/08/23 Range/Units 12:00 06:42 Sodium 137 139 (136-145) mmol/L Potassium 4.0 4.0 (3.5-5.1) mmol/L Chloride 102 105 (98-107) mmol/L Carbon Dioxide 30 30 (21-32) mmol/L BUN 22 18 (6-23) mg/dl Creatinine 0.79 0.73 (0.6-1.2) mg/dl Glucose 115 H 109 H (70-99(Fasting)) mg/dl Calcium 10.5 H 8.9 (8.6-10.3) mg/dl AST 25 21 (13-39) U/L ALT 19 16 (7-52) U/L Alkaline Phosphatase 54 47 (34-104) U/L Total Protein 7.0 6.1 (6.0-8.3) gm/dl Albumin 4.1 3.6 (3.4-5.0) gm/dl Intake and Output 10/07/23 10/08/23 10/08/23 22:59 06:59 14:59 Intake Total 17.117 / 94.684 77.567 / 94.684 101.967 / 101.967 Balance 17.117 / 94.684 77.567 / 94.684 101.967 / 101.967 Intake: IV 17.117 / 94.684 77.567 / 94.684 101.967 / 101.967 Heparin Sodium/Dextrose 25,000 17.117 / 94.684 77.567 / 94.684 101.967 / 101.967 units In 500 ml @ 650 UNITS/HR 13 mls/hr IV .Q24H LEAH Rx#: [id number] Other: # Unmeasured Voids 1 Weight 50.7 kg 51.2 kg Weight Measurement Method Chair [facility] Diagnostic Findings Telemetry reviewed: Currently NSR in the 70-80's. She had one brief run of tachycardia, suggestive of atrial flutter RVR in the ER yesterday lasting several minutes and resolving spontaneously. She also had one recurrent episode last evening around 9:30 lasting approx 2 minutes and resolving spontaneously. EKG reviewed from 10/07/23 on admission: NSR at 74 bmp, no acute changes. Chest X-Ray 10/07/23 11:23 IMPRESSION: No acute process. Brain MRI 10/07/23 14:28 IMPRESSION: 1. A punctate acute infarct within the right posterior frontal lobe. 2. Advanced microvascular ischemic changes. Head CTA 10/07/23 14:28 IMPRESSION: 1. There is no evidence of hemorrhage, mass effect, or acute territorial ischemia noting angiographic phase technique. 2. Unremarkable CT angiogram of the brain. 3. The internal carotid arteries demonstrate beaded appearance bilaterally suggesting fibromuscular dysplasia. 4. Otherwise unremarkable CT angiogram of the neck. The neck vessels are widely patent. 5. There are scattered subcentimeter right upper lobe nodular opacities which may be inflammatory. These are not highly suspicious. Correlate clinically. Neck CTA 10/07/23 14:28 IMPRESSION: 1. There is no evidence of hemorrhage, mass effect, or acute territorial ischemia noting angiographic phase technique. 2. Unremarkable CT angiogram of the brain. 3. The internal carotid arteries demonstrate beaded appearance bilaterally suggesting fibromuscular dysplasia. 4. Otherwise unremarkable CT angiogram of the neck. The neck vessels are widely patent. 5. There are scattered subcentimeter right upper lobe nodular opacities which may be inflammatory. These are not highly suspicious. Correlate clinically. Head CT 10/08/23 06:00 IMPRESSION: There is no hemorrhage, mass effect, or evidence of acute territorial ischemia by CT criteria. The punctate lacunar infarct in the posterior right frontal lobe white matter seen by MRI is not apparent on CT. Prior outside data reviewed: Carotid duplex report reviewed from January 2023: Impression: Right carotid artery duplex examination indicates evidence of less than 50% stenosis of the internal carotid artery. Left carotid artery duplex examination indicates evidence of less than 50% stenosis of the internal carotid artery. Echocardiogram performed 02/03/2022, [facility] Left ventricular ejection fraction 60 65% Moderate mitral valve prolapse Moderate mitral regurgitation Moderate tricuspid regurgitation Moderate bi atrial enlargement Outpatient ZIO monitor report reviewed dated Feb 2022: Final Interpretation Patient had a min HR of 43 bpm, max HR of 184 bpm, and avg HR of 74 bpm. Predominant underlying rhythm was Sinus Rhythm. 1 run of Ventricular Tachycardia occurred lasting 4 beats with a max rate of 162 bpm (avg 149 bpm). 40 Supraventricular Tachycardia runs occurred, the run with the fastest interval lasting 3 mins 36 secs with a max rate of 184 bpm (avg 158 bpm); the run with the fastest interval was also the longest. Idioventricular Rhythm was present. Isolated SVEs were rare (<1.0%), SVE Couplets were rare (<1.0%), and SVE Triplets were rare (<1.0%). Isolated VEs were occasional (1.1%, [id number]), VE Couplets were rare (<1.0%, 260), and no VE Triplets were present. Ventricular Bigeminy and Trigeminy were present. There were no patient marker or diary entries recorded Impression: Sinus rhythm, average rate 74 beats per minute with rare atrial and occasional ventricular ectopic beat With bigeminy and trigeminy and 40 runs of supraventricular tachycardia , longest 3 minutes 36 seconds. Medications Administered Current Inpatient Medications Acetaminophen (Acetaminophen 325 Mg Tab) 650 mg PO Q4H PRN PRN Reason: Pain or Fever Stop: 11/06/23 15:22 Aspirin (Aspirin 81 Mg Ectab) 81 mg PO DAILY [facility] Stop: 11/07/23 08:59 Last Admin: 10/08/23 09:41 Dose: 81 mg Atorvastatin Calcium (Atorvastatin 40 Mg Tab) 40 mg PO HS [facility] Stop: 11/06/23 20:59 Last Admin: 10/07/23 19:46 Dose: 40 mg Heparin Sodium/Dextrose (Heparin Sodium/Dextrose) 25,000 units in 500 mls @ 13 mls/hr IV .Q24H [facility]; Protocol Stop: 11/06/23 16:59 Last Titration: 10/08/23 08:27 Dose: 700 units/hr, 14 mls/hr Metoprolol Succinate (Metoprolol Succ 25mg Ext Rel Tab) 12.5 mg PO DAILY [facility] Stop: 11/06/23 18:59 Last Admin: 10/08/23 09:41 Dose: 12.5 mg Multivitamins (Multivitamin Tab) 1 tab PO DAILY [facility] Stop: 11/07/23 08:59 Last Admin: 10/08/23 09:41 Dose: 1 tab
[2023-10-08] MEDS: ASPIRIN 81 MG ECTAB PO SCH (09:41)
[2023-10-08] MEDS: MULTIVITAMIN TAB PO SCH (09:41)
[2023-10-08] MEDS: AMMONIUM LACTATE 12% LOTION 225 GM BTL EXT SCH (13:04)
--- NOTE | 2023-10-08 15:54 | Neurology Consultation ---
Date of Consultation October 08, 2023 Assessment & Plan (1) Acute ischemic stroke: Recommend continued stroke work up to include the following: Echocardiogram as part of complete stroke workup Continue frequent neurological assessments Obtain stat CT brain without contrast for any acute neurological decline Continue to monitor/control blood pressure & blood glucose Continue to monitor telemetry closely Agree with cardiology consultation and continued full anticoagulation Metabolic workup should include hgbA1c, fasting lipids, homocysteine, TSH, D Dimer Recommend high dose statin therapy indefinitely if tolerated PT/OT/SLT to eval and treat Telehealth Consultation Telehealth Information Telehealth Information: I performed this visit using a real-time telehealth connection between my location and the patients location ([facility]). After connecting through interactive tele-video, patient was identified by name and date of and/or wristband check.Patient (or authorized healthcare door to door sales representative) was informed that this was a telemedicine visit and it was being conducted confidentially over secure lines. My office door was closed and no one else was present in the room with me.Patient (or authorized healthcare door to door sales representative) provided consent to proceed with the visit, expressed an understanding of privacy and security of the telemedicine visit, and gave permission to have a hospital door to door sales representative in the room in order to assist with the visit and to conduct portions of the visit, as needed. I informed the patient (or authorized healthcare door to door sales representative) that I reviewed their record and presented the opportunity for them to ask any questions regarding the visit today. The patient agreed to participate. History of Present Illness Reason for Consultation: Stroke Requesting Physician: Dr. Toney Attending Physician: Paolo Toney MD History of Present Illness 87yo female with hx of HTN CKD was apparently feeling dizzy/lightheaded having difficulty with ambulation and per family report while in ER was not her usual self. Was noted to have HR in 130s and atril flutter prompting cardiology consultation. She has undergone emergent stroke imaging including CT brain without contrast, personally reviewed today, revealing no overt evidence of hemorrhage. CT angiographic studies of head and neck, also personally reviewed today, reveal no overt evidence of large vessel occlusion or significant/flow limiting stenosis. There is notable area of carotid significant for possible FMD. She has undergone an MRI brain revealing punctate area of infarct within posterior portion of right frontal lobe. She has been started on full anticoagulation via recommendations from cardiology due to atrila arrythmia. I have recommended and reviewed a follow up CT brain with contrast this AM revealing no evidence of overt intracranial hemorrhage/hemorrhagic conversion. I have performed televideo consultation. She is awake, alert & oriented. Has chronic hypoacusis but able to answer all questions appropriately, name objects on televideo monitor, repeat phrases and perform complex/embedded commands without deficit. Neurological exam is non lateralizing/nonfocal in terms of motor strength and coordination. NIHSS=0. No reported cephalgia or cervicalgia Denies chest pain/palpitations or shortness of breath No reported changes in vision hearing dizziness syncope seizure like activity or paresthesia Denies recent fevers chills nausea vomiting changes in bowels or bladder Denies recent medication changes, recent illness or sick contacts, no reported recent travel Allergies Allergy/AdvReac Type Severity Reaction Status Date / Time latex Allergy Intermediate SWELLING Verified 10/27/18 08:03 blisters reddness lisinopril Allergy Mild Cough Verified 10/27/18 08:03 Home Medications Medication Instructions Recorded Confirmed Type atorvastatin 10 mg tablet 0 mg PO HS 10/01/18 10/07/23 History denosumab 60 mg/mL subcutaneous 1 dose subcut UD 10/01/18 10/07/23 History syringe (Prolia) furosemide 20 mg tablet 20 mg PO DAILY PRN swelling 10/01/18 10/07/23 History multivitamin 1 tab PO DAILY 10/01/18 10/07/23 History timolol 0.5 % eye drops 1 drp OPB QAM 10/01/18 10/07/23 History aspirin 81 mg tablet 81 mg PO DAILY 02/02/22 10/07/23 History metoprolol succinate 25 mg 0 mg PO UD 10/07/23 10/07/23 History tablet,extended release 24 hr Patient History Medical History Pulmonary HTN Chronic kidney disease STAGE 3 Osteoarthritis Glaucoma Mitral valve prolapse FOLLOWED BY DR. POST Hypertension Hyperlipidemia Surgical History History of left cataract surgery 10/13/18: was given 2mg of IV versed History of colonoscopy History of thyroidectomy, subtotal GOITER REMOVED ? DETAILS Family History Mother Family history of diabetes mellitus Father Heart disease Sister Pulmonary embolism Social History Smoking Status: Never smoker Second Hand Exposure: No; Do You Dip or Chew Tobacco: No; Hx Alcohol Use: Yes Alcohol type: wine Hx Substance Use: No Preferred Language: Kiswahili Communication Ability: Effective Manager Environmental Health Required: No Beliefs That Will Affect Care: None marital status: Single Current Living Situation: Alone Other Information That Helps Us Care for You: No Feels Safe at Home: Yes Safety Concerns: Feels Safe At This Time Assistive Devices: Cane Physical Exam Neurological Examination: Mental Status: Awake and alert. Oriented to person, place, and time. Fluency naming repetition and comprehension appear grossly intact. Affect remains appropriate. CN testing: I: Denies changes in ability to smell II:Reports no changes in visual acuity III/IV/: No evidence of gaze preference, hippus, nystagmus or roving eye movements V: Facial sensation reportedly grossly intact to light touch bilaterally VII: Facial movements appear without evidence of asymmetry VIII: Hearing appears grossly intact to loud voice bilaterally IX/X: Palate appears to elevate symmetrically XI: Shoulder shrug appears symmetric/ grossly intact bilaterally XII: Tongue protrudes midline without evidence of biting Motor exam: Strength appears grossly intact/symmetric in all extremities Sensory: Sensation is reportedly grossly intact throughout Coordination: Finger to nose and heel to calvert were intact. No apparent evidence of dysmetria or dysdiadochokinesia Reflexes: Deferred Gait: Deferred Results & Data Vital Signs (Past 12 Hours) Vital Signs Temp Pulse Pulse Resp BP BP Pulse Ox 10/08/23 15:31 36.7 C 76 18 108/68 96 10/08/23 12:27 10/08/23 11:18 36.8 C 73 18 106/67 96 10/08/23 08:18 36.6 C 57 L 17 119/76 95 10/08/23 07:14 72 O2 Del Method 10/08/23 15:31 Room Air 10/08/23 12:27 Room Air 10/08/23 11:18 Room Air 10/08/23 08:18 Room Air 10/08/23 07:14 Laboratory Results Abnormal lab results 10/08/23 10/08/23 Range/Units 00:46 06:42 RBC 3.82 L (4.20-5.40) M/uL Hgb 11.9 L (12.0-16.0) g/dl Hct 36.6 L (37.0-47.0) % RDW Std Deviation 46.5 H (36.4-46.3) fL Heparin Anti-Xa, Unfract 0.24 L (0.3-0.7) IU/ml BUN/Creatinine Ratio 24.7 H (10-20) Glucose 109 H (70-99(Fasting)) mg/dl Hemoglobin A1c 6.0 H (4.5-5.6) % Diagnostic Findings Brain MRI 10/07/23 14:28 Brain MRI WITH AND WITHOUT CONTRAST HISTORY: confusion TECHNIQUE: Multiplanar multisequence MRI of the brain was performed both before and after the intravenous administration of contrast. COMPARISON STUDY: Head CT 10/07/2023. FINDINGS: There is a single punctate focus of restricted diffusion within the right posterior frontal lobe near the high convexity. This is consistent with a small acute infarct. The midline structures are intact. Patchy periventricular white matter T2 hyperintensity is nonspecific but favors advanced microvascular ischemic change given the patient's age. Prior bilateral lens replacement. Hypoplastic left maxillary sinus. The mastoid air cells are clear. The major vascular flow-voids at the skull base are maintained. The ventricles and sulci demonstrate mild age-related involutional changes. There is no mass, hematoma, or midline shift. No abnormal enhancement. IMPRESSION: 1. A punctate acute infarct within the right posterior frontal lobe. 2. Advanced microvascular ischemic changes. ACT 112: Negative or not required by law. Electronically signed by: Dane Pedro M.D. 10/07/2023 5:30 PM Head CTA 10/07/23 14:28 CT ANGIOGRAM OF THE BRAIN; CT ANGIOGRAM OF THE NECK CLINICAL HISTORY: Change in mental status. COMPARISON STUDY: Unenhanced CT of the brain performed the same day 10/07/2023. TECHNIQUE: Following the IV administration of 117 of Optiray 320, CT angiogram of the head and neck was performed from the aortic arch to the vertex. Images are reviewed in the axial, sagittal, and coronal planes. 3-D MIPS images are created and assessed. IV contrast was administered without complication. All measurements were calculated based on NASCET criteria. A dose lowering technique was utilized adhering to the principles of ALARA. CT DOSE: 349.26 mGy.cm FINDINGS: Brain parenchyma: There is age related involutional change noting advanced confluent subcortical and periventricular microangiopathic disease. There is no evidence of hemorrhage, mass effect, or acute territorial ischemia noting angiographic phase technique. There is no evidence of enhancing mass lesion on the angiogram phase images. The ventricles, sulci, and cisterns are prominent secondary to involutional change. Latif-white matter differentiation is preserved. No extra-axial fluid collection is seen. Thoracic aorta: There is atherosclerotic calcification of the thoracic aorta. Visualized portions of the thoracic aorta are normal in caliber. The aortic arch demonstrates standard 3-vessel anatomy. Right carotid arterial system: The right common carotid artery is widely patent, as are the right internal and external carotid arteries. Mild calcified plaque is seen in the carotid bulb. The internal carotid artery demonstrates a beaded appearance suggesting fibromuscular dysplasia. Left carotid arterial system: The left common carotid artery is widely patent, as are the left internal and external carotid arteries. Mild calcified plaque is noted in the carotid bulb. The internal carotid artery demonstrates a beaded appearance suggesting fibromuscular dysplasia. Vertebral arteries: Widely patent bilaterally noting left-sided dominance. Subclavian arteries: Widely patent bilaterally. Intracranial vasculature: There is atherosclerotic calcification of the cavernous carotid arteries. The internal carotid arteries are patent at the skull base, as are the anterior and middle cerebral arteries bilaterally. The vertebrobasilar system and posterior cerebral arteries are widely patent. The basilar artery is diminutive. There is origin of the left posterior cerebral artery. A large posterior communicating artery is seen on the right. The left vertebral artery is dominant. There is no aneurysm, high-grade stenosis, or focal vessel cut off seen throughout the intracranial circulation. Jugular veins: Patent bilaterally. Dural sinuses: Patent. Lung apices: Foci of parenchymal scarring are seen in the upper lobes. Scattered right upper lobe pulmonary nodules measure up to 7 mm. These may be inflammatory. Soft tissues: The visualized pharyngeal soft tissues are normal in appearance noting angiographic phase technique. The oropharyngeal airway appears widely patent. The left lobe of the thyroid gland is mildly enlarged. The thyroid is heterogeneous. The salivary glands are normal in appearance. No cervical lymphadenopathy is seen. Skeletal structures: The skeletal structures are osteopenic. The calvarium appears intact. The cervical spine is maintained noting multilevel spondylosis. Orbits: The bony orbits are intact. Orbital contents are normal as visualized noting bilateral ocular lens implants. Sinuses and mastoids: The left maxillary sinus is diminutive and partially opacified. The remaining paranasal sinuses are clear. The mastoid air cells are well pneumatized. IMPRESSION: 1. There is no evidence of hemorrhage, mass effect, or acute territorial ischemia noting angiographic phase technique. 2. Unremarkable CT angiogram of the brain. 3. The internal carotid arteries demonstrate beaded appearance bilaterally suggesting fibromuscular dysplasia. 4. Otherwise unremarkable CT angiogram of the neck. The neck vessels are widely patent. 5. There are scattered subcentimeter right upper lobe nodular opacities which may be inflammatory. These are not highly suspicious. Correlate clinically. ACT 112: Negative or not required by law. Electronically signed by: Jamie Noel M.D. 10/07/2023 4:06 PM Neck CTA 10/07/23 14:28 CT ANGIOGRAM OF THE BRAIN; CT ANGIOGRAM OF THE NECK CLINICAL HISTORY: Change in mental status. COMPARISON STUDY: Unenhanced CT of the brain performed the same day 10/07/2023. TECHNIQUE: Following the IV administration of 117 of Optiray 320, CT angiogram of the head and neck was performed from the aortic arch to the vertex. Images are reviewed in the axial, sagittal, and coronal planes. 3-D MIPS images are created and assessed. IV contrast was administered without complication. All measurements were calculated based on NASCET criteria. A dose lowering technique was utilized adhering to the principles of ALARA. CT DOSE: 349.26 mGy.cm FINDINGS: Brain parenchyma: There is age related involutional change noting advanced confluent subcortical and periventricular microangiopathic disease. There is no evidence of hemorrhage, mass effect, or acute territorial ischemia noting angiographic phase technique. There is no evidence of enhancing mass lesion on the angiogram phase images. The ventricles, sulci, and cisterns are prominent secondary to involutional change. Latif-white matter differentiation is preserved. No extra-axial fluid collection is seen. Thoracic aorta: There is atherosclerotic calcification of the thoracic aorta. Visualized portions of the thoracic aorta are normal in caliber. The aortic arch demonstrates standard 3-vessel anatomy. Right carotid arterial system: The right common carotid artery is widely patent, as are the right internal and external carotid arteries. Mild calcified plaque is seen in the carotid bulb. The internal carotid artery demonstrates a beaded appearance suggesting fibromuscular dysplasia. Left carotid arterial system: The left common carotid artery is widely patent, as are the left internal and external carotid arteries. Mild calcified plaque is noted in the carotid bulb. The internal carotid artery demonstrates a beaded appearance suggesting fibromuscular dysplasia. Vertebral arteries: Widely patent bilaterally noting left-sided dominance. Subclavian arteries: Widely patent bilaterally. Intracranial vasculature: There is atherosclerotic calcification of the cavernous carotid arteries. The internal carotid arteries are patent at the skull base, as are the anterior and middle cerebral arteries bilaterally. The vertebrobasilar system and posterior cerebral arteries are widely patent. The basilar artery is diminutive. There is origin of the left posterior cerebral artery. A large posterior communicating artery is seen on the right. The left vertebral artery is dominant. There is no aneurysm, high-grade stenosis, or focal vessel cut off seen throughout the intracranial circulation. Jugular veins: Patent bilaterally. Dural sinuses: Patent. Lung apices: Foci of parenchymal scarring are seen in the upper lobes. Scattered right upper lobe pulmonary nodules measure up to 7 mm. These may be inflammatory. Soft tissues: The visualized pharyngeal soft tissues are normal in appearance noting angiographic phase technique. The oropharyngeal airway appears widely patent. The left lobe of the thyroid gland is mildly enlarged. The thyroid is heterogeneous. The salivary glands are normal in appearance. No cervical lymphadenopathy is seen. Skeletal structures: The skeletal structures are osteopenic. The calvarium appears intact. The cervical spine is maintained noting multilevel spondylosis. Orbits: The bony orbits are intact. Orbital contents are normal as visualized noting bilateral ocular lens implants. Sinuses and mastoids: The left maxillary sinus is diminutive and partially opacified. The remaining paranasal sinuses are clear. The mastoid air cells are well pneumatized. IMPRESSION: 1. There is no evidence of hemorrhage, mass effect, or acute territorial ischemia noting angiographic phase technique. 2. Unremarkable CT angiogram of the brain. 3. The internal carotid arteries demonstrate beaded appearance bilaterally suggesting fibromuscular dysplasia. 4. Otherwise unremarkable CT angiogram of the neck. The neck vessels are widely patent. 5. There are scattered subcentimeter right upper lobe nodular opacities which may be inflammatory. These are not highly suspicious. Correlate clinically. ACT 112: Negative or not required by law. Electronically signed by: Jamie Noel M.D. 10/07/2023 4:[address] 10/08/23 06:00 CT SCAN OF THE BRAIN WITHOUT IV CONTRAST CLINICAL HISTORY: Follow-up stroke. COMPARISON STUDY: CT an MRI of the brain dated 10/07/2023. TECHNIQUE: Unenhanced axial CT scan of the brain is performed from the vertex to the skull base. A dose lowering technique was utilized adhering to the principles of ALARA. 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 There is no hemorrhage, mass effect, or evidence of acute territorial ischemia by CT criteria. Latif-white matter differentiation is preserved. No extra-axial fluid collection is seen. Ventricles, sulci, cisterns: Prominent secondary to involutional change. Intracranial vasculature: There is atherosclerotic calcification of the cavernous carotid arteries. Calvarium: Unremarkable. Sinuses and mastoids: The visualized paranasal sinuses are clear. The mastoid air cells are well pneumatized. Orbits: The bony orbits are grossly intact. There are bilateral ocular lens implants. IMPRESSION: There is no hemorrhage, mass effect, or evidence of acute territorial ischemia by CT criteria. The punctate lacunar infarct in the posterior right frontal lobe white matter seen by MRI is not apparent on CT. ACT 112: Negative or not required by law. Electronically signed by: Jamie Noel M.D. 10/08/2023 6:43 AM Medications Administered Home Medications Medication Instructions Recorded Confirmed Last Taken atorvastatin 10 mg tablet 0 mg PO HS 10/01/18 10/07/23 10/26/18 denosumab 60 mg/mL subcutaneous 1 dose subcut UD 10/01/18 10/07/23 09/12/18 syringe (Prolia) furosemide 20 mg tablet 20 mg PO DAILY PRN swelling 10/01/18 10/07/23 10/26/18 multivitamin 1 tab PO DAILY 10/01/18 10/07/23 10/26/18 timolol 0.5 % eye drops 1 drp OPB QAM 10/01/18 10/07/23 10/26/18 aspirin 81 mg tablet 81 mg PO DAILY 02/02/22 10/07/23 Unknown metoprolol succinate 25 mg 0 mg PO UD 10/07/23 10/07/23 Unknown tablet,extended release 24 hr Active Medications Generic Name Dose Route Start Last Admin Trade Name Freq PRN Reason Stop Dose Admin Aspirin 81 mg 10/08/23 09:00 10/08/23 09:41 Aspirin 81 Mg Ectab PO 11/07/23 08:59 81 mg DAILY LEAH Administration Atorvastatin Calcium 40 mg 10/07/23 21:00 10/07/23 19:46 Atorvastatin 40 Mg Tab PO 11/06/23 20:59 40 mg HS LEAH Administration Heparin Sodium/Dextrose 25,000 units in 500 mls @ 14 mls/hr 10/07/23 17:00 10/08/23 08:27 Heparin Sodium/Dextrose IV 11/06/23 16:59 700 units/hr .Q24H LEAH 14 mls/hr Titration Protocol 700 UNITS/HR Lactic Acid 1 gm 10/08/23 13:00 10/08/23 13:04 Ammonium Lactate 12% Lotion 225 Gm Btl EXT 11/07/23 12:59 1 gm BID LEAH Administration Multivitamins 1 tab 10/08/23 09:00 10/08/23 09:41 Multivitamin Tab PO 11/07/23 08:59 1 tab DAILY LEAH Administration
[2023-10-08] MEDS: AMIODARONE 200 MG TAB PO SCH (16:34)
--- NOTE | 2023-10-08 16:55 | Hospitalist Progress Note ---
Date of Service October 08, 2023 Assessment & Plan (1) Syncope: Plan: Acute CVA, punctate infarct right frontal lobe In the setting of paroxysmal atrial flutter Cardiology and neurology service consulted Amiodarone initiated Currently on IV heparin, transition to Eliquis 2.5 mg upon discharge Echocardiogram noted, unrevealing Continue aspirin, Lipitor Per previous hospitalist notes: Hospitalized in the past d/t syncope, at that time believed to be d/t orthosta tic hypotension Etiology of dizziness / pre-syncope not clear at this time - Possibly secondary to arrhythmia, orthostatic hypotension, carotid stenosis, MVP/ chf, pulm. HTN, ? cva/ neurological. At this point infectious etiology seems less likely. CTA head and neck - ordered MRI brain - ordered consider EEG Neurology consulted Monitor on Telemetry - pt had bursts of increased HR into 130s, possible Aflutter ED provider discussed w/ cardiology - starting IV heparin cont. home metoprolol BNP elev at 240s Echo ordered Cardiology consulted and will further discuss with Obtain orthostatics Infectious etiology rule out No leukocytosis, no fever reported CXR negat. UA negat. Blood cultx - pending Cont. home medications - but hold lasix at this time as pt received contrast. Monitor renal function as pt has hx of CKD and received contrast. Chronic conditions- HLD- cont. lipitor CODE : DNR/DNI - discussed with the pt and brother at the bedside - family reports she has it also in "writing" plan of care discussed with patient in detail and at length all questions answered she is understanding, agreeable, comfortable with the plan of care Admission and Anticipated Discharge Date Admission Date: October 07, 2023 Subjective Follow-up for acute CVA, etc. Seen resting in bed, comfortable, not in distress States she still has some mild dizziness, blurring of vision Otherwise no new focal neurologic deficits no chest pain, dyspnea, palpitations, dizziness No other new symptoms Review of Systems Review of Systems: all noted and negative except for above Physical Exam Physical Exam: General- oriented x 3, not in distress, speaks in sentences with no effort or accessory muscle use Eyes- anicteric Neck- no JVD Lungs- clear breath sounds bilaterally, no rales/wheezes Heart- normal rate, regular rhythm; no murmurs Abdomen- normal bowel sounds, nondistended, soft, nontender Extremities- no pretibial edema, no calf tenderness Neuro- alert, oriented x 3; no gross focal neurologic deficits Skin- warm & dry Results & Data Results & Data Vital Signs (Past 12 Hours) Vital Signs Temp Pulse Pulse Resp BP BP Pulse Ox 10/08/23 16:21 67 10/08/23 15:31 36.7 C 76 18 108/68 96 10/08/23 12:27 10/08/23 11:18 36.8 C 73 18 106/67 96 10/08/23 08:18 36.6 C 57 L 17 119/76 95 10/08/23 07:14 72 O2 Del Method 10/08/23 16:21 10/08/23 15:31 Room Air 10/08/23 12:27 Room Air 10/08/23 11:18 Room Air 10/08/23 08:18 Room Air 10/08/23 07:14 all noted and reviewed including below
[2023-10-08] MEDS: METOPROLOL SUCC 25MG EXT REL TAB PO SCH (21:46)
[2023-10-09 06:56] LABS: ANTI-Xa, UFH(UnfractionatedHep 0.41 IU/ml (0.3-0.7)
--- NOTE | 2023-10-09 09:09 | Cardiology Progress Note ---
Date of Service October 09, 2023 Assessment & Plan (1) CVA (cerebral vascular accident): (2) Atrial flutter: (3) Mitral valve prolapse: (4) Hypertension: (5) Carotid stenosis, bilateral: Plan Patient admitted for weakness/dizziness and diagnosed with acute CVA per brain MRI in the posterior right frontal lobe. She was incidentally found to have probable atrial flutter while in the ER and then recurrent episode last evening, lasting several minutes. She was started on IV heparin for anticoagulation. repeat head CT was negative for hemorrhagic conversion this morning. Increase metoprolol succinate to 12.5 mg BID. If she has recurrent arrhythmias, consider amiodarone. 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 Prior to discharge will plan to transition patient to Eliquis 2.5 mg BID (low dose based on age >80 and weight < 60 kg). Echocardiogram is pending with bubble study Will review when available. She does have history of moderate MVP and MR. Will review. Edema is well controlled. Diuretic on hold on admission. PT/OT recommended. Consider rehab. continue ASA and statin as well. Neuro consulted for other recommendations. 10/09/23: No recurrent atrial fib/flutter in the last 24 hours. EKG with stable QT/QTc. Normal LFT's and TSH on admission. Continue amiodarone 200 mg BID. Plan to reduce dose after 2-4 weeks to once daily Continue metoprolol succinate 12.5 mg BID. Transition to Eliquis 2.5 mg BID (low dose based on age and weight). Stop Heparin with first dose. program manager consulted to verify cost of eliquis. PT/OT Stable from cardiac perspective. Will sign off. Please notify outside sales consultant cardiology provider with additional questions or concerns. Case discussed with Dr. Hurley I spent a total of 60 minutes on the date of service in preparation, delivery, and documentation of the care provided to this patient, excluding any time spent in the performance of separately billed services. Marielle Price PA-C Department of Cardiology, [facility] This chart was completed in part utilizing Speech Voice Recognition Software. Grammatical errors, random word insertions, pronoun errors, and incomplete sentences are an occasional consequence of this system due to software limitations, ambient noise, and hardware issues. Any formal questions or concerns about the content, text, or information contained within the body of this dictation should be directly addressed to the provider for clarification. Admission and Anticipated Discharge Date Admission Date: October 07, 2023 Supervising Physician Co-Signing Physician Notes I have reviewed the advance practitioner's documentation, and I agree with, and take responsibility for the plan of care. I have personally performed a history and physical examination on the patient. 87-year-old female with paroxysmal atrial flutter and MRI evidence of small, acute cerebrovascular accident. Amiodarone and Eliquis added during hospitalization. Continue at discharge. No further inpatient cardiac testing or intervention recommended at this time. Cardiology follow-up with Dr. Oliva in 2 weeks. I spent a total of 25 minutes on the date of service in preparation, delivery, and documentation of the care provided to this patient, excluding any time spent in the performance of separately billed services. Subjective Patient reports feeling ok today. Still having trouble "focusing" her eyes. No headache. No acute visual changes. No palpitations or tachypalpitations. No chest pain or SOB. Review of Systems Review of Systems: All systems reviewed & are unremarkable except as noted in HPI & below Physical Exam Constitutional: WD/WN, vitals as above + frail appearing; no acute distress Neck: trachea midline, no thyromegaly Respiratory: normal respiratory effort Auscultation: lungs clear to auscultation bilaterally Cardiovascular: Rate/Rhythm: regular rate and regular rhythm Heart Sounds: + murmur (II/ systolic murmur) Vessels: no JVD Extremities: no edema Gastrointestinal (Abdomen): normal bowel sounds, soft, nontender, no hepatosplenomegaly Neurologic: PERRL, EOMI, accommodation nl, no face palsy, no dysarthria Psychiatric: A+Ox3, euthymic affect Results & Data Vital Signs (Past 12 Hours) Vital Signs Temp Pulse Pulse Resp BP BP Pulse Ox 10/09/23 07:50 70 10/09/23 07:31 36.8 C 75 16 130/75 95 10/09/23 02:51 36.4 C L 64 16 130/73 94 10/08/23 22:29 36.6 C 70 16 133/74 95 10/08/23 22:00 79 10/08/23 21:45 O2 Del Method 10/09/23 07:50 10/09/23 07:31 Room Air 10/09/23 02:51 Room Air 10/08/23 22:29 Room Air 10/08/23 22:00 10/08/23 21:45 Room Air Laboratory Results Intake and Output 10/08/23 10/09/23 10/09/23 22:59 06:59 14:59 Intake Total 305.867 / 507.834 100 / 507.834 163.8 / 163.8 Output Total 100 / 100 Balance 205.867 / 407.834 100 / 407.834 163.8 / 163.8 Intake: IV 155.867 / 257.834 163.8 / 163.8 Heparin Sodium/Dextrose 25,000 155.867 / 257.834 163.8 / 163.8 units In 500 ml @ 700 UNITS/HR 14 mls/hr IV .Q24H [facility] Rx#: [id number] Oral 150 / 250 100 / 250 Output: Urine 100 / 100 Other: # Unmeasured Voids 1 Weight 51.2 kg 50.9 kg Weight Measurement Method Built in [facility] Diagnostic Findings Telemetry reviewed: NSR in the 70's. no recurrent atrial fib/flutter EKG reviewed from this morning: Normal sinus rhythm Nonspecific ST and T wave abnormality. Underlying artifact noted QT/QTc 372/424 ms Echo reviewed from 10/08/23: Compared to prior study, no significant changes noted LVEF 55-60% Mild concentric LVH Moderate biatrial enlargement Moderate MVP Mod MR Mild TR No evidence of pulm hypertension No interatrial shunt with injection of contrast Medications Administered Current Inpatient Medications Acetaminophen (Acetaminophen 325 Mg Tab) 650 mg PO Q4H PRN PRN Reason: Pain or Fever Stop: 11/06/23 15:22 Amiodarone HCl (Amiodarone 200 Mg Tab) 200 mg PO BIDM [facility] Stop: 11/07/23 16:59 Last Admin: 10/09/23 09:05 Dose: 200 mg Aspirin (Aspirin 81 Mg Ectab) 81 mg PO DAILY [facility] Stop: 11/07/23 08:59 Last Admin: 10/09/23 09:05 Dose: 81 mg Atorvastatin Calcium (Atorvastatin 40 Mg Tab) 40 mg PO HS [facility] Stop: 11/06/23 20:59 Last Admin: 10/08/23 21:46 Dose: 40 mg Heparin Sodium/Dextrose (Heparin Sodium/Dextrose) 25,000 units in 500 mls @ 14 mls/hr IV .Q24H [facility]; Protocol Stop: 11/06/23 16:59 Last Titration: 10/09/23 07:17 Dose: 700 units/hr, 14 mls/hr Lactic Acid (Ammonium Lactate 12% Lotion 225 Gm Btl) 1 gm EXT BID [facility] Stop: 11/07/23 12:59 Last Admin: 10/09/23 09:06 Dose: 1 gm Metoprolol Succinate (Metoprolol Succ 25mg Ext Rel Tab) 12.5 mg PO BID [facility] Stop: 11/07/23 20:59 Last Admin: 10/09/23 09:05 Dose: 12.5 mg Multivitamins (Multivitamin Tab) 1 tab PO DAILY [facility] Stop: 11/07/23 08:59 Last Admin: 10/09/23 09:05 Dose: 1 tab (1) CVA (cerebral vascular accident) CVA mechanism: unspecified Qualified Code(s): I63.9 - Cerebral infarction, unspecified (2) Atrial flutter Atrial flutter type: unspecified Qualified Code(s): I48.92 - Unspecified atrial flutter (4) Hypertension Hypertension type: primary hypertension Qualified Code(s): I10 - Essential (primary) hypertension
[2023-10-09] MEDS: APIXABAN 2.5 MG TAB PO SCH (10:20)
--- NOTE | 2023-10-09 18:13 | Hospitalist Progress Note ---
Date of Service October 09, 2023 Assessment & Plan (1) Syncope: Plan: Acute CVA, punctate infarct right frontal lobe In the setting of paroxysmal atrial flutter Cardiology and neurology service consulted Amiodarone initiated Currently on IV heparin, transition to Eliquis 2.5 mg upon discharge Echocardiogram noted, unrevealing Continue aspirin, Lipitor 5/2 Remains stable No focal neurologic deficits Remains in sinus rhythm Continue amiodarone 200 mg p.o. twice daily, usual metoprolol XL 12.5 mg p.o. twice daily next Transition from IV heparin to Eliquis 2.5 mg p.o. twice daily Continue Lipitor 40 mg p.o. daily OT recommending inpatient rehab Patient declining at this point Will request OT reevaluation for tomorrow Per previous hospitalist notes: Hospitalized in the past d/t syncope, at that time believed to be d/t orthostatic hypotension Etiology of dizziness / pre-syncope not clear at this time - Possibly secondary to arrhythmia, orthostatic hypotension, carotid stenosis, MVP/ chf, pulm. HTN, ? cva/ neurological. At this point infectious etiology seems less likely. CTA head and neck - ordered MRI brain - ordered consider EEG Neurology consulted Monitor on Telemetry - pt had bursts of increased HR into 130s, possible Aflutter ED provider discussed w/ cardiology - starting IV heparin cont. home metoprolol BNP elev at 240s Echo ordered Cardiology consulted and will further discuss with Obtain orthostatics Infectious etiology rule out No leukocytosis, no fever reported CXR negat. UA negat. Blood cultx - pending Cont. home medications - but hold lasix at this time as pt received contrast. Monitor renal function as pt has hx of CKD and received contrast. Chronic conditions- HLD- cont. lipitor CODE : DNR/DNI - discussed with the pt and brother at the bedside - family reports she has it also in "writing" plan of care discussed with patient in detail and at length all questions answered she is understanding, agreeable, comfortable with the plan of care Admission and Anticipated Discharge Date Admission Date: October 07, 2023 Subjective Follow-up for acute CVA, paroxysmal atrial flutter, etc. Seen resting in bed, comfortable, not in distress States she feels improved today compared to yesterday No dizziness, blurring of vision, new focal neurologic deficits no chest pain, dyspnea, palpitations Tearful, states she is starting to feel depressed because of being in the hospital, would like to go home soon Explained plan of care with patient, reassured, patient felt better Review of Systems Review of Systems: all noted and negative except for above Physical Exam Physical Exam: General- oriented x 3, not in distress, speaks in sentences with no effort or accessory muscle use Eyes- anicteric Neck- no JVD Lungs- clear breath sounds bilaterally, no crackles or wheezing Heart- normal rate, regular rhythm; no murmurs Abdomen- normal bowel sounds, nondistended, soft, nontender Extremities- no pretibial edema, no calf tenderness Neuro- alert, oriented x 3; no gross focal neurologic deficits Skin- warm & dry Results & Data Results & Data Vital Signs (Past 12 Hours) Vital Signs Temp Pulse Pulse Resp BP Pulse Ox O2 Del Method 10/09/23 15:12 66 10/09/23 14:42 36.3 C L 73 17 150/85 H 97 Room Air 10/09/23 10:42 36.3 C L 74 16 130/81 96 Room Air 10/09/23 10:02 Room Air 10/09/23 07:50 70 10/09/23 07:31 36.8 C 75 16 130/75 95 Room Air all noted and reviewed including below
[2023-10-10 07:24] LABS: ANTI-Xa, UFH(UnfractionatedHep 0.65 IU/ml (0.3-0.7)
[2023-10-10 07:37] VITALS: RESP 18
[2023-10-10 11:25] VITALS: BP 133/72; TEMP 97.7; O2SAT 97
--- NOTE | 2023-10-10 12:39 | Electrocardiogram Report ---
Test Reason : Blood Pressure : / mmHG Vent. Rate : 078 BPM Atrial Rate : 078 BPM P-R Int : 196 ms QRS Dur : 090 ms QT Int : 372 ms P-R-T Axes : 076 005 061 degrees QTc Int : 424 ms Poor data quality, interpretation may be adversely affected Normal sinus rhythm Nonspecific ST and T wave abnormality Abnormal ECG When compared with ECG of 07-OCT-2023 11:29, ST now depressed in Anterior leads Nonspecific T wave abnormality now evident in Inferior leads Confirmed by Theodore Coelho ([id number]) on 10/10/2023 12:39:11 PM Referred By: REFERRED SELF Confirmed By:Theodore Coelho
[2023-10-10 14:09] LABS: Appearance Urine Clear (Clear); Bacteria Urine Automated None Seen (None Seen); Bilirubin Urine Negative (Negative); Blood Urine Negative (Negative); Cast Urine Automated 0-2 /lpf (0-2); Color Urine Yellow; Epithelial Cell Urine Auto 0-2 /hpf (0-2); Glucose Urine UA Negative (Negative); Ketones Urine Negative (Negative); Leukocyte Esterase Urine 2+ (Negative); Nitrite Urine Negative (Negative); Protein Urine Negative (Negative); Specific Gravity Urine 1.015 (1.000-1.030); Urobilinogen Urine Negative (Negative); WBC Urine Automated 0-5 /hpf (0-5); pH Urine 6.5 (4.5-7.5)
[2023-10-10 15:01] VITALS: PULSE 77
--- NOTE | 2023-10-10 19:46 | Discharge Summary ---
Discharge Summary Date of Service October 10, 2023 delayed entry date of service noted above Notes For Next Care Provider Medication Changes From Visit Eliquis- blood thinner to prevent stroke - if you sustain any head injury, you need to go to the ER immediately for evaluation, even if you are not having any symptoms Amiodarone- for treatment of atrial flutter/irregular heartbeat Metoprolol XL 12.5mg po BID Increase Lipitor to 40mg po daily. Stop Aspirin. Admission HPI Per Admitting Provider 87 yo F w/ HLD, prediabetes, pulmonary hypertension, mitral valve prolapse, c arotid artery stenosis (asymptomatic), HTN, Tricuspid regurg., venous insufficiency, CKD stage 3 presents w/ pre-syncopal episode and confusion. Initially called her brother on Friday that she felt dizzy, and so she crawled on the floor to her bed and laid down. Apparently over the weekend she was doing well, and continued with her normal activities, including going to the [facility]. Then on Friday she called her brother again that she did not feel well. She says that this morning she felt dizzy, had coffee and so she went outside and was sitting on the porch hoping she would feel better. Currently she does not remember that she called her brother on Friday. Brother and his are present at the bedside and provide the history. Currently patient is laying in bed in no acute distress, she is pleasant and she feels well. I observed her walking to the bathroom and back with a cane, without any dizziness or lightheadedness. She says that she has no chest pain palpitations or shortness of breath. However she reports that she does get lightheaded often, and gets some blurry vision. Denies any fevers chills cough, dysuria, abdominal pain nausea, constipation or diarrhea. Brother says that they called [facility] cardiology office, as patient follows with Dr. Oliva, and they were advised to come to the ED for evaluation. In the ED, noted HR into 130s, atrial flutter per ED provider. ED provider communicated w/ neurology and recommended CTA head and neck and MRI brain which was ordered. UA negat., CXR unremarkable, BNP elevated 242, calcium also elevated at 10.5 Previously admitted in January 2022 due to syncope, believed it to be secondary to orthostatic hypotension. Admission Exam Per Admitting Provider Constitutional: WD/WN, vitals as above Eyes: PERRL, conjunctivae normal, anicteric sclerae ENMT: external ear and nose normal, oropharynx normal Neck: trachea midline, no thyromegaly Respiratory: normal respiratory effort, lungs clear to auscultation Cardiovascular: RRR, no murmur, no edema Chest (Breasts): Chest: normal inspection of chest Gastrointestinal (Abdomen): normal bowel sounds, soft, nontender, no hepatosplenomegaly Musculoskeletal: no cyanosis or clubbing, extremities motor strength 5/5 (pt is wearing TEDs) Skin: no rashes, warm and dry Neurologic: PERRL, EOMI, accommodation nl, no face palsy, no dysarthria Psychiatric: A+Ox3, euthymic affect Principal Dx & Hospital Course #1 = Principal Diagnosis (1) Syncope: Acute CVA, punctate infarct right frontal lobe In the setting of paroxysmal atrial flutter Hospitalized in the past d/t syncope, at that time believed to be d/t orthostatic hypotension MRI brain 1. A punctate acute infarct within the right posterior frontal lobe. 2. Advanced microvascular ischemic changes. CTA head and neck 1.There is no hemorrhage, mass effect, or evidence of acute territorial ischemia by CT criteria. The punctate lacunar infarct in the posterior right frontal lobe white matter seen by MRI is not apparent on CT. 1. There is no evidence of hemorrhage, mass effect, or acute territorial ischemia noting angiographic phase technique. 2. Unremarkable CT angiogram of the brain. 3. The internal carotid arteries demonstrate beaded appearance bilaterally suggesting fibromuscular dysplasia. 4. Otherwise unremarkable CT angiogram of the neck. The neck vessels are widely patent. 5. There are scattered subcentimeter right upper lobe nodular opacities which may be inflammatory. These are not highly suspicious. Correlate clinically. Cardiology and neurology service consulted Amiodarone initiated Currently on IV heparin, transition to Eliquis 2.5 mg upon discharge Echocardiogram noted, unrevealing Continue aspirin, Lipitor / Remains stable No focal neurologic deficits Remains in sinus rhythm Continue amiodarone 200 mg p.o. twice daily, Plan to reduce dose after 2-4 weeks to once daily usual metoprolol XL 12.5 mg p.o. twice daily Transition from IV heparin to Eliquis 2.5 mg p.o. twice daily Continue Lipitor 40 mg p.o. daily OT recommending inpatient rehab Patient and her brother declining, prefers home with home health PT accepting of risks involved including falls, injuries, etc. signs and symptoms of stroke, what to do if present discussed with patient and her brother Chronic conditions- HLD- cont. lipitor CODE : DNR/DNI plan of care discussed with patient and her brother at bedside in detail and at length all questions answered she is understanding, agreeable, comfortable with the plan of care Discharge Exam General- oriented x 3, not in distress, speaks in sentences with no effort or accessory muscle use Eyes- anicteric Neck- no JVD Lungs- clear breath sounds bilaterally, no crackles or wheezing Heart- normal rate, regular rhythm; no murmurs Abdomen- normal bowel sounds, nondistended, soft, nontender Extremities- no pretibial edema, no calf tenderness Neuro- alert, oriented x 3; no gross focal neurologic deficits Skin- warm & dry Updated Medication List Medication Instructions Recorded Confirmed Type denosumab 60 mg/mL subcutaneous 1 dose subcut UD 10/01/18 10/07/23 History syringe (Prolia) furosemide 20 mg tablet 20 mg PO DAILY PRN swelling 10/01/18 10/07/23 History multivitamin 1 tab PO DAILY 10/01/18 10/07/23 History timolol 0.5 % eye drops 1 drp OPB QAM 10/01/18 10/07/23 History amiodarone 200 mg tablet 200 mg PO BIDM 30 days #60 tabs 10/10/23 Rx ammonium lactate 5 % lotion 1 applic EXT BID 10 days #226 grams 10/10/23 Rx (Lac-Hydrin Five) apixaban 2.5 mg tablet (Eliquis) 2.5 mg PO BID 30 days #60 tabs 10/10/23 Rx atorvastatin 40 mg tablet 40 mg PO HS 30 days #30 tabs 10/10/23 Rx metoprolol succinate 25 mg 12.5 mg (1/2 x 25 mg) PO BID 30 10/10/23 Rx tablet,extended release 24 hr days #30 tabs Hospital Stay Data Consultations 10/07/23 14:43 ED Decision to Admit Stat 10/07/23 16:31 Consult Cardiology Routine 10/07/23 16:32 Consult Neurology Routine Diagnostic Imagining Performed Laboratory Results WBC 6.93 K/ul (4.8-10.8) 10/08/23 06:42 RBC 3.82 M/uL (4.20-5.40) L 10/08/23 06:42 Hgb 11.9 g/dl (12.0-16.0) L 10/08/23 06:42 Hct 36.6 % (37.0-47.0) L 10/08/23 06:42 MCV 95.8 fL (80.0-100.0) 10/08/23 06:42 MCH 31.2 pg (25.0-34.0) 10/08/23 06:42 MCHC 32.5 g/dL (32.0-36.0) 10/08/23 06:42 RDW Std Deviation 46.5 fL (36.4-46.3) H 10/08/23 06:42 RDW Coeff of Justyn 13.1 % (11.5-14.5) 10/08/23 06:42 Plt Count 168 K/uL (130-400) 10/08/23 06:42 MPV 10.2 fL (9.4-12.4) 10/08/23 06:42 Immature Gran % (Auto) 0.2 % 10/07/23 12:00 Neut % (Auto) 60.1 % 10/07/23 12:00 Lymph % (Auto) 27.9 % 10/07/23 12:00 [place] % (Auto) 9.6 % 10/07/23 12:00 Eos % (Auto) 1.8 % 10/07/23 12:00 Baso % (Auto) 0.4 % 10/07/23 12:00 Neut # (Auto) 3.25 K/uL (1.40-6.50) 10/07/23 12:00 Lymph # (Auto) 1.51 K/uL (1.20-3.40) 10/07/23 12:00 [place] # (Auto) 0.52 K/uL (0.11-0.59) 10/07/23 12:00 Eos # (Auto) 0.10 K/uL (0.00-0.50) 10/07/23 12:00 Baso # (Auto) 0.02 K/uL (0.00-0.20) 10/07/23 12:00 Immature Gran # (Auto) 0.01 K/uL (0.01-0.20) 10/07/23 12:00 PT 11.1 Seconds (9.0-12.0) 10/07/23 14:02 INR 1.0 (0.9-1.1) 10/07/23 14:02 Heparin Anti-Xa, Unfract 0.65 IU/ml (0.3-0.7) 10/10/23 06:51 Sodium 139 mmol/L (136-145) 10/08/23 06:42 Potassium 4.0 mmol/L (3.5-5.1) 10/08/23 06:42 Chloride 105 mmol/L (98-107) 10/08/23 06:42 Carbon Dioxide 30 mmol/L (21-32) 10/08/23 06:42 Anion Gap 4 (3-11) 10/08/23 06:42 BUN 18 mg/dl (6-23) 10/08/23 06:42 Creatinine 0.73 mg/dl (0.6-1.2) 10/08/23 06:42 Est Cr Clr Drug Dosing 43.1 ml/min 10/08/23 06:42 Est GFR ( Amer) 85.2 ml/min 10/08/23 06:42 Est GFR (Non-Af Amer) 73.5 ml/min 10/08/23 06:42 BUN/Creatinine Ratio 24.7 (10-20) H 10/08/23 06:42 Glucose 109 mg/dl (70-99(Fasting)) H 10/08/23 06:42 Estimat Average Glucose 126 mg/dl 10/08/23 06:42 Hemoglobin A1c 6.0 % (4.5-5.6) H 10/08/23 06:42 Calcium 8.9 mg/dl (8.6-10.3) 10/08/23 06:42 Phosphorus 3.8 mg/dl (2.5-4.9) 10/08/23 06:42 Magnesium 1.9 mg/dl (1.7-2.4) 10/08/23 06:42 Total Bilirubin 0.4 mg/dl (0.2-1.0) 10/08/23 06:42 AST 21 U/L (13-39) 10/08/23 06:42 ALT 16 U/L (7-52) 10/08/23 06:42 Alkaline Phosphatase 47 U/L (34-104) 10/08/23 06:42 Troponin I High Sens 10.3 pg/ml (0-14) 10/07/23 12:00 B-Natriuretic Peptide 242 pg/ml (0-100) H 10/07/23 12:00 Total Protein 6.1 gm/dl (6.0-8.3) 10/08/23 06:42 Albumin 3.6 gm/dl (3.4-5.0) 10/08/23 06:42 Globulin 2.5 gm/dl (2.5-4.0) 10/08/23 06:42 Albumin/Globulin Ratio 1.4 (0.9-2) 10/08/23 06:42 Triglycerides 48 mg/dl (0-150) 10/08/23 06:42 Cholesterol 138 mg/dl (0-200) 10/08/23 06:42 LDL Cholesterol, Calc 74 mg/dl 10/08/23 06:42 VLDL Cholesterol, Calc 10 mg/dl (0-30) 10/08/23 06:42 HDL Cholesterol 54 mg/dl 10/08/23 06:42 Cholesterol/HDL Ratio 2.6 (0-5) 10/08/23 06:42 TSH 1.339 uIu/ml (0.300-4.500) 10/07/23 12:00 Urine Color Yellow 10/10/23 13:24 Urine Appearance Clear (Clear) 10/10/23 13:24 Urine pH 6.5 (4.5-7.5) 10/10/23 13:24 Ur Specific [place] 1.015 (1.000-1.030) 10/10/23 13:24 Urine Protein Negative (Negative) 10/10/23 13:24 Urine Glucose (UA) Negative (Negative) 10/10/23 13:24 Urine Ketones Negative (Negative) 10/10/23 13:24 Urine Blood Negative (Negative) 10/10/23 13:24 Urine Nitrite Negative (Negative) 10/10/23 13:24 Urine Bilirubin Negative (Negative) 10/10/23 13:24 Urine Urobilinogen Negative (Negative) 10/10/23 13:24 Ur Leukocyte Esterase 2+ (Negative) H 10/10/23 13:24 Urine WBC (Auto) 0-5 /hpf (0-5) 10/10/23 13:24 Urine RBC (Auto) 3-5 /hpf (0-2) H 10/10/23 13:24 U Hyaline Cast (Auto) 0-2 /lpf (0-2) 10/10/23 13:24 U Epithel Cells (Auto) 0-2 /hpf (0-2) 10/10/23 13:24 Urine Bacteria (Auto) None Seen (None Seen) 10/10/23 13:24 Impressions Chest X-Ray 10/07/23 11:23 XR chest 1V portable HISTORY: 87 years-old Female weakness COMPARISON: 02/02/2022 TECHNIQUE: AP view of the chest FINDINGS: Cardiomediastinal and hilar silhouettes are within normal limits. Atherosclerosis of the aorta. Chronic interstitial coarsening. No pneumothorax, pleural effusion or pulmonary edema. Degenerative changes of the shoulders and spine with lumbar levoscoliosis. IMPRESSION: No acute process. ACT 112: Negative or not required by law. The above report was generated using voice recognition software. It may contain grammatical, syntax or spelling errors. Electronically signed by: Paul Vidal M.D. 10/07/2023 12:06 PM Brain MRI 10/07/23 14:28 Brain MRI WITH AND WITHOUT CONTRAST HISTORY: confusion TECHNIQUE: Multiplanar multisequence MRI of the brain was performed both before and after the intravenous administration of contrast. COMPARISON STUDY: Head CT 10/07/2023. FINDINGS: There is a single punctate focus of restricted diffusion within the right posterior frontal lobe near the high convexity. This is consistent with a small acute infarct. The midline structures are intact. Patchy periventricular white matter T2 hyperintensity is nonspecific but favors advanced microvascular ischemic change given the patient's age. Prior bilateral lens replacement. Hypoplastic left maxillary sinus. The mastoid air cells are clear. The major vascular flow-voids at the skull base are maintained. The ventricles and sulci demonstrate mild age-related involutional changes. There is no mass, hematoma, or midline shift. No abnormal enhancement. IMPRESSION: 1. A punctate acute infarct within the right posterior frontal lobe. 2. Advanced microvascular ischemic changes. ACT 112: Negative or not required by law. Electronically signed by: Dane Pedro M.D. 10/07/2023 5:30 PM Head CTA 10/07/23 14:28 CT ANGIOGRAM OF THE BRAIN; CT ANGIOGRAM OF THE NECK CLINICAL HISTORY: Change in mental status. COMPARISON STUDY: Unenhanced CT of the brain performed the same day 10/07/2023. TECHNIQUE: Following the IV administration of 117 of Optiray 320, CT angiogram of the head and neck was performed from the aortic arch to the vertex. Images are reviewed in the axial, sagittal, and coronal planes. 3-D MIPS images are created and assessed. IV contrast was administered without complication. All measurements were calculated based on NASCET criteria. A dose lowering technique was utilized adhering to the principles of ALARA. CT DOSE: 349.26 mGy.cm FINDINGS: Brain parenchyma: There is age related involutional change noting advanced confluent subcortical and periventricular microangiopathic disease. There is no evidence of hemorrhage, mass effect, or acute territorial ischemia noting angiographic phase technique. There is no evidence of enhancing mass lesion on the angiogram phase images. The ventricles, sulci, and cisterns are prominent secondary to involutional change. Latif-white matter differentiation is preserved. No extra-axial fluid collection is seen. Thoracic aorta: There is atherosclerotic calcification of the thoracic aorta. Visualized portions of the thoracic aorta are normal in caliber. The aortic arch demonstrates standard 3-vessel anatomy. Right carotid arterial system: The right common carotid artery is widely patent, as are the right internal and external carotid arteries. Mild calcified plaque is seen in the carotid bulb. The internal carotid artery demonstrates a beaded appearance suggesting fibromuscular dysplasia. Left carotid arterial system: The left common carotid artery is widely patent, as are the left internal and external carotid arteries. Mild calcified plaque is noted in the carotid bulb. The internal carotid artery demonstrates a beaded appearance suggesting fibromuscular dysplasia. Vertebral arteries: Widely patent bilaterally noting left-sided dominance. Subclavian arteries: Widely patent bilaterally. Intracranial vasculature: There is atherosclerotic calcification of the cavernous carotid arteries. The internal carotid arteries are patent at the skull base, as are the anterior and middle cerebral arteries bilaterally. The vertebrobasilar system and posterior cerebral arteries are widely patent. The basilar artery is diminutive. There is origin of the left posterior cerebral artery. A large posterior communicating artery is seen on the right. The left vertebral artery is dominant. There is no aneurysm, high-grade st enosis, or focal vessel cut off seen throughout the intracranial circulation. Jugular veins: Patent bilaterally. Dural sinuses: Patent. Lung apices: Foci of parenchymal scarring are seen in the upper lobes. Scattered right upper lobe pulmonary nodules measure up to 7 mm. These may be inflammatory. Soft tissues: The visualized pharyngeal soft tissues are normal in appearance noting angiographic phase technique. The oropharyngeal airway appears widely patent. The left lobe of the thyroid gland is mildly enlarged. The thyroid is heterogeneous. The salivary glands are normal in appearance. No cervical lymphadenopathy is seen. Skeletal structures: The skeletal structures are osteopenic. The calvarium appears intact. The cervical spine is maintained noting multilevel spondylosis. Orbits: The bony orbits are intact. Orbital contents are normal as visualized noting bilateral ocular lens implants. Sinuses and mastoids: The left maxillary sinus is diminutive and partially opacified. The remaining paranasal sinuses are clear. The mastoid air cells are well pneumatized. IMPRESSION: 1. There is no evidence of hemorrhage, mass effect, or acute territorial ischemia noting angiographic phase technique. 2. Unremarkable CT angiogram of the brain. 3. The internal carotid arteries demonstrate beaded appearance bilaterally suggesting fibromuscular dysplasia. 4. Otherwise unremarkable CT angiogram of the neck. The neck vessels are widely patent. 5. There are scattered subcentimeter right upper lobe nodular opacities which may be inflammatory. These are not highly suspicious. Correlate clinically. ACT 112: Negative or not required by law. Electronically signed by: Jamie Noel M.D. 10/07/2023 4:06 PM Neck CTA 10/07/23 14:28 CT ANGIOGRAM OF THE BRAIN; CT ANGIOGRAM OF THE NECK CLINICAL HISTORY: Change in mental status. COMPARISON STUDY: Unenhanced CT of the brain performed the same day 10/07/2023. TECHNIQUE: Following the IV administration of 117 of Optiray 320, CT angiogram of the head and neck was performed from the aortic arch to the vertex. Images are reviewed in the axial, sagittal, and coronal planes. 3-D MIPS images are created and assessed. IV contrast was administered without complication. All measurements were calculated based on NASCET criteria. A dose lowering technique was utilized adhering to the principles of ALARA. CT DOSE: 349.26 mGy.cm FINDINGS: Brain parenchyma: There is age related involutional change noting advanced confluent subcortical and periventricular microangiopathic disease. There is no evidence of hemorrhage, mass effect, or acute territorial ischemia noting angiographic phase technique. There is no evidence of enhancing mass lesion on the angiogram phase images. The ventricles, sulci, and cisterns are prominent secondary to involutional change. Latif-white matter differentiation is preserved. No extra-axial fluid collection is seen. Thoracic aorta: There is atherosclerotic calcification of the thoracic aorta. Visualized portions of the thoracic aorta are normal in caliber. The aortic arch demonstrates standard 3-vessel anatomy. Right carotid arterial system: The right common carotid artery is widely patent, as are the right internal and external carotid arteries. Mild calcified plaque is seen in the carotid bulb. The internal carotid artery demonstrates a beaded appearance suggesting fibromuscular dysplasia. Left carotid arterial system: The left common carotid artery is widely patent, as are the left internal and external carotid arteries. Mild calcified plaque is noted in the carotid bulb. The internal carotid artery demonstrates a beaded appearance suggesting fibromuscular dysplasia. Vertebral arteries: Widely patent bilaterally noting left-sided dominance. Subclavian arteries: Widely patent bilaterally. Intracranial vasculature: There is atherosclerotic calcification of the cavernous carotid arteries. The internal carotid arteries are patent at the skull base, as are the anterior and middle cerebral arteries bilaterally. The vertebrobasilar system and posterior cerebral arteries are widely patent. The basilar artery is diminutive. There is origin of the left posterior cerebral artery. A large posterior communicating artery is seen on the right. The left vertebral artery is dominant. There is no aneurysm, high-grade stenosis, or focal vessel cut off seen throughout the intracranial circulation. Jugular veins: Patent bilaterally. Dural sinuses: Patent. Lung apices: Foci of parenchymal scarring are seen in the upper lobes. Scattered right upper lobe pulmonary nodules measure up to 7 mm. These may be inflammatory. Soft tissues: The visualized pharyngeal soft tissues are normal in appearance noting angiographic phase technique. The oropharyngeal airway appears widely patent. The left lobe of the thyroid gland is mildly enlarged. The thyroid is heterogeneous. The salivary glands are normal in appearance. No cervical lymphadenopathy is seen. Skeletal structures: The skeletal structures are osteopenic. The calvarium appears intact. The cervical spine is maintained noting multilevel spondylosis. Orbits: The bony orbits are intact. Orbital contents are normal as visualized noting bilateral ocular lens implants. Sinuses and mastoids: The left maxillary sinus is diminutive and partially opacified. The remaining paranasal sinuses are clear. The mastoid air cells are well pneumatized. IMPRESSION: 1. There is no evidence of hemorrhage, mass effect, or acute territorial ischemia noting angiographic phase technique. 2. Unremarkable CT angiogram of the brain. 3. The internal carotid arteries demonstrate beaded appearance bilaterally suggesting fibromuscular dysplasia. 4. Otherwise unremarkable CT angiogram of the neck. The neck vessels are widely patent. 5. There are scattered subcentimeter right upper lobe nodular opacities which may be inflammatory. These are not highly suspicious. Correlate clinically. ACT 112: Negative or not required by law. Electronically signed by: Jamie Noel M.D. 10/07/2023 4:[address] 10/08/23 06:00 CT SCAN OF THE BRAIN WITHOUT IV CONTRAST CLINICAL HISTORY: Follow-up stroke. COMPARISON STUDY: CT an MRI of the brain dated 10/07/2023. TECHNIQUE: Unenhanced axial CT scan of the brain is performed from the vertex to the skull base. A dose lowering technique was utilized adhering to the principles of ALARA. 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 There is no hemorrhage, mass effect, or evidence of acute territorial ischemia by CT crit eria. Latif-white matter differentiation is preserved. No extra-axial fluid collection is seen. Ventricles, sulci, cisterns: Prominent secondary to involutional change. Intracranial vasculature: There is atherosclerotic calcification of the cavernous carotid arteries. Calvarium: Unremarkable. Sinuses and mastoids: The visualized paranasal sinuses are clear. The mastoid air cells are well pneumatized. Orbits: The bony orbits are grossly intact. There are bilateral ocular lens implants. IMPRESSION: There is no hemorrhage, mass effect, or evidence of acute territorial ischemia by CT criteria. The punctate lacunar infarct in the posterior right frontal lobe white matter seen by MRI is not apparent on CT. ACT 112: Negative or not required by law. Electronically signed by: Jamie Noel M.D. 10/08/2023 6:43 AM Pending Results Patient Have Any Pending Studies at Discharge: No Discharge Instructions Given to Patient (Per Discharging Provider) PLEASE REFER TO YOUR NEW MEDICATION LIST AND FOLLOW INSTRUCTIONS CAREFULLY. YOUR NEW MEDICATIONS INCLUDE: Eliquis- blood thinner to prevent stroke - if you sustain any head injury, you need to go to the ER immediately for evaluation, even if you are not having any symptoms Amiodarone- for treatment of atrial flutter/irregular heartbeat Metoprolol XL 12.5mg po BID Increase Lipitor to 40mg po daily. Stop Aspirin. FOLLOW UP WITH PRIMARY CARE PHYSICIAN OUTLINED ABOVE. Total Time Total Time Spent Total Time Spent (In Minutes): 40 minutes
== END 2023-10-10 16:05 | disposition home health service (06) | DRG 65 ==
LOC: ED 10:45 → 2S 15:24 → SUATTDRO 15:24 → 2S 18:04